=== PATIENT | male | born 1990 | race Hispanic/Latino ===

== ENCOUNTER 2016-08-08 09:10 | Inpatient (IN) | payer MEDICARE, MEDICAID ==
[2016-08-08 09:13] VITALS: O2SAT 97
[2016-08-08 09:15] VITALS: BMI 25.7
--- NOTE | 2016-08-08 09:16 | ED PDOC ---
Psych Transfer Clearance - Clearance Statement Clearance Statement: Reviewed vital signs, lab results and transfer papers. Patient clinically stable for psychiatric admission.
[2016-08-08] MEDS ORDERED: Magnesium Hydroxide Susp 30 ml UD PO PRN (11:00)
[2016-08-08] MEDS ORDERED: DiphenhydrAMINE 50 mg/ml Inj IM PRN (11:00)
[2016-08-08] MEDS ORDERED: Alum-Mag Hydrox-Simethicone Susp (30 mL) PO PRN (11:00)
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
[2016-08-08 22:35] VITALS: RESP 18
[2016-08-09 08:14] LABS: CHOLESTEROL 172 mg/dL (0-199)
[2016-08-09 09:25] VITALS: BP 125/74; PULSE 87; TEMP 97.7
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
== END 2016-08-09 13:08 | disposition home or self-care (01) | DRG 885 ==
LOC: H.ER 09:10 → H.PSYCH 09:15
PROVIDERS: ADMIT Psychiatry & Neurology Psychiatry; ATTEND Psychiatry & Neurology Psychiatry
PROC: GZ51ZZZ Individual Psychotherapy, Behavioral (ICD-10-PCS; principal; 2016-08-08)
DX: F31.9 Bipolar disorder, unspecified (principal); F25.9 Schizoaffective disorder, unspecified; R45.851 Suicidal ideations; F16.10 Hallucinogen abuse, uncomplicated; F60.2 Antisocial personality disorder; Z87.891 Personal history of nicotine dependence; Z59.0 Homelessness; J45.909 Unspecified asthma, uncomplicated

== ENCOUNTER 2016-08-14 22:28 | Inpatient (IN) | payer MEDICARE, MEDICAID ==
[2016-08-14 22:28] VITALS: BMI 25.7
[2016-08-15 02:29] LABS: HEMATOCRIT 40.8 % (35.0-51.0); MEAN CELL VOLUME 93.2 fl (80.0-94.0); MEAN CORPUSCULAR HEMOGLOBIN 31.1 pg (27.0-31.0); MEAN CORPUSCULAR HGB CONC 33.3 g/dL (33.0-37.0); RED CELL DISTRIBUTION WIDTH 13.5 % (11.5-14.5); WHITE BLOOD COUNT 13.7 K/uL (4.8-10.8)
[2016-08-15 02:33] LABS: RBC URINE 2 /hpf (0-3); URINE BILIRUBIN NEGATIVE (NEGATIVE); URINE BLOOD NEGATIVE (NEGATIVE); URINE COLOR BLUE (YELLOW); URINE GLUCOSE (UA) NEG (Normal); URINE KETONE NEGATIVE (NEGATIVE); URINE LEUKOCYTE ESTERASE NEG Leu/uL (Negative); URINE PROTEIN NEGATIVE (NEGATIVE); URINE UROBILINOGEN 0.2-1.0 mg/dL (0.2-1.0); WBC URINE 1 /hpf (0-5)
[2016-08-15 02:40] LABS: ALB/GLOB RATIO 1.4 (1.0-2.1); ALCOHOL SERUM < 10 mg/dl (0-10); ALKALINE PHOSPHATASE 56 U/L (38-126); ALT/SGPT 34 U/L (21-72); AST/SGOT 33 U/L (17-59); BILIRUBIN,TOTAL 0.3 mg/dl (0.2-1.3); BLOOD UREA NITROGEN 17 mg/dl (9-20); CALCIUM 8.9 mg/dL (8.4-10.2); CARBON DIOXIDE 26 mmol/L (22-30); CHLORIDE 103 mmol/L (98-107); GFR AFRICAN-AMERICAN > 60; GLUCOSE,RANDOM 85 mg/dL (75-110); POTASSIUM 3.5 MMOL/L (3.6-5.0); SODIUM 137 mmol/l (132-148); TOTAL PROTEIN 6.7 G/DL (6.3-8.2)
--- NOTE | 2016-08-15 03:11 | ED PDOC ---
HPI: Psych/Substance Abuse Time Seen by Provider: 08/14/16 22:58 Chief Complaint (Nursing): Psychiatric Evaluation Chief Complaint (Provider): SI - Wants to jump in front of a pain History Per: Patient History/Exam Limitations: no limitations Onset/Duration Of Symptoms: Days (2-3) Current Symptoms Are (Timing): Still Present Suicide/Self Injury Attempted (Context): None Modifying Factor(s): None Associated Symptoms: Suicidal Thoughts Additional Complaint(s): [place] and came to the ER because he was about to jump in front of a train. Pt states he signed out too early off of the unit. Past Medical History Reviewed: Historical Data, Nursing Documentation, Vital Signs Vital Signs: Last Vital Signs Temp 98.3 F 08/14/16 22:44 Pulse 109 H 08/14/16 22:44 Resp 18 08/14/16 22:44 BP 136/82 08/14/16 22:44 Pulse Ox 91 L 08/14/16 22:44 - Medical History PMH: Anxiety, Asthma (since childhood), Bipolar Disorder, Depression, Post Traumatic Stress Disorder, Schizophrenia Denies: Diabetes, Hepatitis, HIV, HTN, Chronic Kidney Disease, Seizures, Sexually Transmitted Disease - Surgical History Surgical History: No Surg Hx - Family History Family History: States: Unknown Family Hx - Immunization History Hx Tetanus Toxoid Vaccination: Yes Hx Influenza Vaccination: Yes Hx Pneumococcal Vaccination: No - Home Medications Home Medications: Ambulatory Orders Medication Instructions Recorded OXcarbazepine [Trileptal] 150 mg PO BID #30 tab 08/09/16 chlorproMAZINE [Thorazine] 100 mg PO HS #15 tab 08/09/16 - Allergies Allergies/Adverse Reactions: Allergies Allergy/AdvReac Type Severity Reaction Status Date / Time bee pollen Allergy RASH Verified 08/14/16 22:50 haloperidol [From Haldol] Allergy RASH Verified 08/14/16 22:50 haloperidol lactate Allergy RASH Verified 08/14/16 22:50 [From Haldol] Penicillins Allergy RASH Verified 08/14/16 22:50 Review of Systems ROS Statement: Except As Marked, All Systems Reviewed And Found Negative Psych: Positive for: Suicidal ideation Physical Exam - Reviewed Nursing Documentation Reviewed: Yes Vital Signs Reviewed: Yes - Physical Exam Appears: Positive for: Well, Non-toxic, No Acute Distress Head Exam: Positive for: ATRAUMATIC, NORMAL INSPECTION, NORMOCEPHALIC Skin: Positive for: Normal Color, Warm, DRY Eye Exam: Positive for: Normal appearance ENT: Positive for: Normal ENT Inspection Neck: Positive for: Normal, Painless ROM Cardiovascular/Chest: Positive for: Regular Rate, Rhythm Respiratory: Positive for: CNT, Normal Breath Sounds Gastrointestinal/Abdominal: Positive for: Normal Exam, Bowel Sounds, Soft Back: Positive for: Normal Inspection Extremity: Positive for: Normal ROM Neurologic/Psych: Positive for: Alert, Oriented - Laboratory Results Result Diagrams: 08/15/16 02:25 08/15/16 02:25 - ECG O2 Sat by Pulse Oximetry: 91 Medical Decision Making Medical Decision Making: Elevated WBC without fever. Normal CXR Normal urine. Disposition - Clinical Impression Clinical Impression: Depression - Patient ED Disposition Is Patient to be Admitted: Yes - Disposition Disposition Time: 03:16 Condition: STABLE - Pt Status Changed To: Hospital Disposition Of: Inpatient - Admit Certification Admit to Inpatient:: After my assessment, the patient will require hospitalization for at least two midnights. This is because of the severity of symptoms shown, intensity of services needed, and/or the medical risk in this patient being treated as an outpatient. - POA Present On Arrival: None
[2016-08-15 04:17] VITALS: O2SAT 91
[2016-08-15] MEDS ORDERED: Magnesium Hydroxide Susp 30 ml UD PO PRN (04:36)
[2016-08-15] MEDS ORDERED: DiphenhydrAMINE 50 mg/ml Inj IM PRN (04:36)
[2016-08-15] MEDS ORDERED: Alum-Mag Hydrox-Simethicone Susp (30 mL) PO PRN (04:36)
[2016-08-15] MEDS ORDERED: Pneumococcal 23-Valent Vaccine IM ONE (06:00)
--- NOTE | 2016-08-15 07:32 | RAD ---
HISTORY: admission COMPARISON: No prior. TECHNIQUE: Chest PA and lateral FINDINGS: LUNGS: No active pulmonary disease. PLEURA: No significant pleural effusion identified. No pneumothorax apparent. CARDIOVASCULAR: Normal. OSSEOUS STRUCTURES: No significant abnormalities. VISUALIZED UPPER ABDOMEN: Normal. OTHER FINDINGS: None. IMPRESSION: No active disease.
--- NOTE | 2016-08-15 14:04 | CP.PCM.CON ---
History of Present Illness - History of Present Illness History of Present Illness: Reason for consult per protocol HPI: 26 year old male PMH PCP abuse and depression, just signed out 6 days ago from psych unit for suicidal ideations. Patient attempted to jump in front of a train? Feels he signed out too early. Pt also states he dislocated his shoulder , and feels he reaggravated it somehow, requesting motrin. Otherwise no complaints, vitals stable, no acute distress. ROS: per HPI all other systems reviewed and negative PMH: PCP abuse and depression PSH: denies FH: denies SH: 6 cigarettes a day 10 years. denies ETOH, IVDU Meds: as below Allergies: PCN, HALDOL Vitals: Temp Pulse Resp BP Pulse Ox 98.7 F 100 H 15 135/85 91 L 08/15/16 04:46 08/15/16 04:46 08/15/16 04:46 08/15/16 04:46 08/15/16 04:17 Constitutional- cooperative, awake, alert. Head- NCAT, PERRL Eye- PERRL, normal accommodation ENT- normal exam, MMM. Neck- normal inspection, supple, no JVD Respiratory- decreased BS, no wheezes rales rhonchi Cardiovascular- RRR, +S1, +S2 no MRG GI/Abdominal- normal bowel sounds, soft Extremities Exam- normal capillary refill, normal inspection Neurological Exam- alert, oriented Skin- warm and dry Psych - normal mood, affect appropriate Labs: 08/15/16 02:25 08/15/16 02:25 Assessment and Plan: 26 year old male PMH PCP abuse and depression, just signed out 6 days ago from psych unit for suicidal ideations. Patient attempted to jump in front of a train ? Feels he signed out too early. Pt also states he dislocated his shoulder, and feels he reaggravated it somehow, requesting motrin. Otherwise no complaints, vitals stable, no acute distress. Substance Abuse Depression Management per psych Past Patient History - Infectious Disease Hx of Infectious Diseases: None - Tetanus Immunizations Tetanus Immunization: Unknown - Past Social History Smoking Status: Heavy Smoker > 10 Cigarettes Daily - CARDIAC Hx Cardiac Disorders: No Hx Hypertension: No - PULMONARY Hx Respiratory Disorders: Yes - NEUROLOGICAL Hx Neurological Disorder: No Hx Seizures: No - HEENT Hx HEENT Problems: No (wears glasses) - RENAL Hx Chronic Kidney Disease: No - ENDOCRINE/METABOLIC Hx Endocrine Disorders: No - HEMATOLOGICAL/ONCOLOGICAL Hx Blood Disorders: No Hx Human Immunodeficiency Virus (HIV): No - INTEGUMENTARY Hx Dermatological Problems: No - MUSCULOSKELETAL/RHEUMATOLOGICAL Hx Musculoskeletal Disorders: Yes (reported pain on the R shoulder) Hx Arthritis: Yes - GASTROINTESTINAL Hx Gastrointestinal Disorders: No - GENITOURINARY/GYNECOLOGICAL Hx Genitourinary Disorders: No Hx Sexually Transmitted Disorders: No - PSYCHIATRIC Hx Psychophysiologic Disorder: Yes - SURGICAL HISTORY Hx Surgeries: No - ANESTHESIA Hx Anesthesia: No Hx Anesthesia Reactions: No Hx Malignant Hyperthermia: No Meds Allergies/Adverse Reactions: Allergies Allergy/AdvReac Type Severity Reaction Status Date / Time bee pollen Allergy RASH Verified 08/14/16 22:50 haloperidol [From Haldol] Allergy RASH Verified 08/14/16 22:50 haloperidol lactate Allergy RASH Verified 08/14/16 22:50 [From Haldol] Penicillins Allergy RASH Verified 08/14/16 22:50 - Medications Medications: Current Medications Acetaminophen (Tylenol 325mg Tab) 650 mg PO Q4 PRN PRN Reason: Pain, moderate (4-7) Al Hydrox/Mg Hydrox/Simethicone (Maalox Plus 30 Ml) 30 ml PO Q4 PRN PRN Reason: Dyspepsia Chlorpromazine (Thorazine) 25 mg IM Q6 PRN PRN Reason: Agitation Chlorpromazine (Thorazine) 50 mg PO Q6 PRN PRN Reason: Agitation Chlorpromazine (Thorazine) 100 mg PO HS [facility] Diphenhydramine HCl (Benadryl) 50 mg PO Q6 PRN PRN Reason: Extrapyramidal Symptoms Diphenhydramine HCl (Benadryl) 50 mg IM Q6 PRN PRN Reason: Extrapyramidal S/S Unable PO Lorazepam (Ativan) 1 mg PO Q4 PRN PRN Reason: Anxiety/Agitation Lorazepam (Ativan) 2 mg IM Q4 PRN PRN Reason: Anxiety/Agitation,Unable PO Magnesium Hydroxide (Milk Of Magnesia) 30 ml PO HS PRN PRN Reason: Constipation Nicotine (Nicoderm Cq) 1 patch TD DAILY CARL Results - Vital Signs Recent Vital Signs: Last Vital Signs Temp 98.7 F 08/15/16 04:46 Pulse 100 H 08/15/16 04:46 Resp 15 08/15/16 04:46 BP 135/85 08/15/16 04:46 Pulse Ox 91 L 08/15/16 04:17 - Labs Result Diagrams: 08/15/16 02:25 08/15/16 02:25 Labs: Laboratory Results - last 24 hr 08/15/16 02:25 WBC 13.7 H RBC 4.37 L Hgb 13.6 Hct 40.8 MCV 93.2 D MCH 31.1 H MCHC 33.3 RDW 13.5 Plt Count 223 Sodium 137 Potassium 3.5 L Chloride 103 Carbon Dioxide 26 Anion Gap 12 BUN 17 Creatinine 0.8 Est GFR ( Amer) > 60 Est GFR (Non-Af Amer) > 60 Random Glucose 85 Calcium 8.9 Total Bilirubin 0.3 AST 33 ALT 34 Alkaline Phosphatase 56 Total Protein 6.7 Albumin 3.9 Globulin 2.8 Albumin/Globulin Ratio 1.4 Urine Color Blue Urine Clarity Slighty-cloudy Urine pH 5.0 Ur Specific [place] 1.026 Urine Protein Negative Urine Glucose (UA) Neg Urine Ketones Negative Urine Blood Negative Urine Nitrate Negative Urine Bilirubin Negative Urine Urobilinogen 0.2-1.0 Ur Leukocyte Esterase Neg Urine RBC (Auto) 2 Urine Microscopic WBC 1 Urine Opiates Screen Negative Urine Methadone Screen Negative Ur Barbiturates Screen Negative Ur Phencyclidine Scrn Positive H Ur Amphetamines Screen Negative U Benzodiazepines Scrn Negative U Oth Cocaine Metabols Negative U Cannabinoids Screen Positive H Alcohol, Quantitative < 10
--- NOTE | 2016-08-15 21:45 | PCM.PSYCH ---
Initial Psychiatric Evaluation - Initial Psychiatric Evaluation Chief Complaint (in patient's own words): was feeling suicidal ideation was reports recently discharged from [facility], [place] recently for same Patient's Reaction to Hospitalization: verbally agreeable History of Present Illness and Precipitating Events: reported increasing depression, decreased supports Current Medications: Active Medications Generic Name Dose Route Start Last Admin Trade Name Freq PRN Reason Stop Dose Admin Acetaminophen 650 mg 08/15/16 04:36 Tylenol 325mg Tab PO Q4 PRN Pain, moderate (4-7) Al Hydrox/Mg Hydrox/Simethicone 30 ml 08/15/16 04:36 Maalox Plus 30 Ml PO Q4 PRN Dyspepsia Chlorpromazine 25 mg 08/15/16 05:18 Thorazine IM Q6 PRN Agitation Chlorpromazine 50 mg 08/15/16 05:17 Thorazine PO Q6 PRN Agitation Diphenhydramine HCl 50 mg 08/15/16 04:36 Benadryl PO Q6 PRN Extrapyramidal Symptoms Diphenhydramine HCl 50 mg 08/15/16 04:36 Benadryl IM Q6 PRN Extrapyramidal S/S Unable PO Ibuprofen 600 mg 08/15/16 18:03 08/15/16 18:27 Motrin Tab PO 600 mg Q6 PRN Administration pain 4-10 Lorazepam 1 mg 08/15/16 04:36 Ativan PO Q4 PRN Anxiety/Agitation Lorazepam 2 mg 08/15/16 04:36 Ativan IM Q4 PRN Anxiety/Agitation,Unable PO Lorazepam 0.5 mg 08/15/16 17:00 08/15/16 17:04 Ativan PO 0.5 mg BID CARL Administration Magnesium Hydroxide 30 ml 08/15/16 04:36 Milk Of Magnesia PO HS PRN Constipation Nicotine 1 patch 08/15/16 11:15 08/15/16 09:00 Nicoderm Cq TD 1 patch DAILY CARL Administration Sertraline HCl 50 mg 08/16/16 09:00 Zoloft PO DAILY CARL Trazodone HCl 150 mg 08/15/16 22:00 08/15/16 21:34 Desyrel PO 150 mg HS CARL Administration Past Psychiatric History - Past Psychiatric History Prior Professional Help: multiple inpt partial hospital opd History of ETOH/Drug Use: defers History of Family Illness: defers Pertinent Medical Hx (Current Medical&Sleep Prob, Allergies): Allergies Allergy/AdvReac Type Severity Reaction Status Date / Time bee pollen Allergy RASH Verified 08/14/16 22:50 haloperidol [From Haldol] Allergy RASH Verified 08/14/16 22:50 haloperidol lactate Allergy RASH Verified 08/14/16 22:50 [From Haldol] Penicillins Allergy RASH Verified 08/14/16 22:50 OXcarbazepine [Trileptal] 150 mg PO BID #30 tab 08/09/16 chlorproMAZINE [Thorazine] 100 mg PO HS #15 tab 08/09/16 Review of Systems - Psychiatric Psychiatric: Abnormal Sleep Pattern, Anhedonia, Paranoia Mental Status Examination - Personal Presentation Personal Presentation: Looks older than stated age - Affect Affect: Constricted - Motor Activity Motor Activity: Psychomotor Retardation - Reliability in Providing Information Reliability in Providing Information: Fair - Mood Mood: Depressed, Anxious - Formal Thought Process Formal Thought Process: Paranoia - Obsessions/Compulsions Obsessions: No Compulsions: No - Cognitive Functions Orientation: Person, Place, Situation, Time Sensorium: Alert Judgement: Imparied, as evidence by: Other - Strength & Assets Inventory Additional comments: voluntary admission DSM 5 DX - DSM 5 DSM 5 Diagnosis: Sschizoaffective disorder 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
[2016-08-16 09:15] VITALS: RESP 18
--- NOTE | 2016-08-16 15:33 | RAD ---
HISTORY: dislocation? COMPARISON: No prior FINDINGS: BONES: Normal. No fracture. JOINTS: Normal. No osteoarthritis. SOFT TISSUE: Normal. OTHER FINDINGS: None . IMPRESSION: Normal Bone Xray.
--- NOTE | 2016-08-17 01:56 | PCM.PYCHPN ---
Psychiatric Progress Note - Psychiatric Progress Note Patient seen today, length of contact: NOTE FOR [id number] Chart reviewed case discussed with team Patient Chief Complaint: reports feeling better, slept with medications,no side effects am, reports feeling more at ease , expresses desire to relocate to [facility], reportedly has arrangements to have a place to stay, may need help obtaining room for one week, Problems Identified/Issues Discussed: alteration in mood improving, insomnia resolving Medical Problems: per chart Diagnostic Results: per psychiatry per medicine per nursing per social sciences research scientist per recreational therapy Medication Change: No Mental Status Examination - Cognitive Function Orientation: Person, Place, Situation, Time Attention: WNL Concentration: WNL Association: WNL Fund of Knowledge: [facility] Decription of patient's judgement and insights: improving - Mood Mood: Depressed, Anxious - Affect Affect: Constricted - Formal Thought Process Formal Thought Process: Paranoia - Homicidal Ideation Homicidal Ideation: No Goal/Treatment Plan - Goal/Treatment Plan Progress Toward Problem(s) and Goals/Treatment Plan: i milieu therapy vital signs and clinical observations per protocol and per clinical status discharge planning in progress Estimated Date of D/C: 07/28/16 - Smoking Cessation Smoking Cessation Initiated: Yes
[2016-08-17 07:21] LABS: BASO % 0.5 % (0.0-2.0); EOS # 0.2 K/uL (0.0-0.7); EOS % 1.8 % (0.0-4.0); HEMATOCRIT 43.8 % (35.0-51.0); LYMPH # 2.9 K/uL (1.0-4.3); LYMPH % 27.9 % (20.0-40.0); MEAN CORPUSCULAR HEMOGLOBIN 31.5 pg (27.0-31.0); MEAN CORPUSCULAR HGB CONC 33.5 g/dL (33.0-37.0); MONO % 9.3 % (0.0-10.0); NEUT # 6.3 K/uL (1.8-7.0); NEUT % 60.5 % (50.0-75.0); NRBC % 0.1 % (0.0-0.0); RED CELL DISTRIBUTION WIDTH 13.5 % (11.5-14.5); WHITE BLOOD COUNT 10.4 K/uL (4.8-10.8)
[2016-08-17 09:24] VITALS: BP 121/71; PULSE 76; TEMP 97.3
--- NOTE | 2016-08-17 09:36 | PCM.PYCHDC ---
Mental Status Examination - Mental Status Examination Orientation: Person, Place, Situation, Time Memory: Intact Mood: Neutral Affect: Broad Speech: Appropriate Attention: WNL Concentration: WNL Association: WNL Fund of Knowledge: WNL Formal Thought Process: No Impairment Description of patient's judgement and insight: fair Suicidal Ideation: No Current Homicidal Ideation?: No Plan: pt denies any suicidal or homicidal thoughts Discharge Summary - Discharge Note Reason for Hospitalization: pt expressed thoughts of self harm Psychiatric History (includes Medical, Family, Personal Hx): history of previous hospitalizations Laboratory Data: Abnormal Lab Results 08/17/16 06:59 WBC 10.4 RBC 4.66 Hgb 14.7 Hct 43.8 MCV 94.0 MCH 31.5 H MCHC 33.5 RDW 13.5 Plt Count 221 MPV 8.0 Neut % (Auto) 60.5 Lymph % (Auto) 27.9 Mccracken % (Auto) 9.3 Eos % (Auto) 1.8 Baso % (Auto) 0.5 Neut # 6.3 Lymph # 2.9 Mccracken # 1.0 H Eos # 0.2 Baso # 0.0 Consultations:: List each consultation separately and include: 1. Reason for request. 2. Findings. 3. Follow-up Consultations: seen by hospitalist Summary of Hospital Course include:: 1. Description of specific treatment plan utilized for patients during their course of treatmen. 2. Summarize the time- course for resolution of acute symptoms and/or regressed behaviors. 3. Describe issues identified and worked on during hospitalization. 4. Describe medication utilized. 5. Describe medical problems identified and treated. 6. Reassessment of suicide risk Summary of Hospital Course: pt admitted to [facility] and oriented to the unit. he was placed on routine safety protocols. he was adherent with treatment. pt denied medication side effects. pt was asking to leave the hospital, was goal directed and future oriented. he was denying suicidal or homicidal thoughts at time of discharge. - Final Diagnosis (DSM 5) Condition upon Discharge: STABLE DSM 5: schizoaffective disorder antisocial personality disorder Disposition: HOME/ ROUTINE Follow-up Treatment Plan: take medications as prescribed do not use alcohol, tobacco or other illicit substances call 911 if any suicidal or homicidal thoughts follow up with aftercare as directed. - Smoking Cessation Smoking Cessation Medication prescribed: No Reason for not providing: declined - Antipsychotic Medications Pt discharged on 2 or more routine antipsychotic medications: No
== END 2016-08-17 11:40 | disposition home or self-care (01) | DRG 885 ==
LOC: H.ER 22:28 → H.ERHOLD 08-15 02:02 → H.PSYCH 08-15 04:55
PROVIDERS: ADMIT Psychiatry & Neurology Psychiatry; ATTEND Psychiatry & Neurology Psychiatry
PROC: GZHZZZZ Group Psychotherapy (ICD-10-PCS; principal; 2016-08-15)
PROC: GZ58ZZZ Individual Psychotherapy, Cognitive-Behavioral (ICD-10-PCS; 2016-08-15)
PROC: 3E0234Z Introduction of Serum, Toxoid and Vaccine into Muscle, Percutaneous Approach (ICD-10-PCS; 2016-08-15)
DX: F32.3 Major depressive disorder, single episode, severe with psychotic features (principal); F16.10 Hallucinogen abuse, uncomplicated; F60.2 Antisocial personality disorder; F43.10 Post-traumatic stress disorder, unspecified; G47.00 Insomnia, unspecified; J45.909 Unspecified asthma, uncomplicated; F17.210 Nicotine dependence, cigarettes, uncomplicated; Z23 Encounter for immunization; Z88.0 Allergy status to penicillin

== ENCOUNTER 2016-08-18 02:41 | Emergency (ER) | payer MEDICARE, MEDICAID ==
[2016-08-18 02:41] VITALS: BMI 25.7
[2016-08-18] MEDS ORDERED: Albuterol-Ipratrop 3 mg / 0.5 (3 ml) UD IH STA ×2 (03:14→03:55)
[2016-08-18] MEDS ORDERED: Albuterol-Ipratrop 3 mg / 0.5 (3 ml) UD ONE ×2 (03:17→03:59)
--- NOTE | 2016-08-18 03:19 | ED PDOC ---
HPI: SOB/CHF/COPD Time Seen by Provider: 08/18/16 02:53 Chief Complaint (Nursing): Chest Pain Chief Complaint (Provider): sob History Per: Patient History/Exam Limitations: no limitations Onset/Duration Of Symptoms: Hrs (7) Current Symptoms Are (Timing): Still Present Initiating Event: Out Of Medications Current Respiratory Medications: Albuterol Additional History Per: Patient Additional Complaint(s): 26 y/o male history of asthma presents to ED with chest pain, shortness of breath x 7 hours. Patient states he ran out of his inhaler; requesting nebulizer treatment and refill. States symptoms similar to previous asthma exacerbations. Denies fever, cough, congestion, shortness of breath, palpitations, abdominal pain, leg pain/swelling. Past Medical History Reviewed: Historical Data, Nursing Documentation, Vital Signs - Medical History PMH: Anxiety, Arthritis, Asthma, Bipolar Disorder, Depression, Post Traumatic Stress Disorder, Schizophrenia Denies: Diabetes, Hepatitis, HIV, HTN, Chronic Kidney Disease, Seizures, Sexually Transmitted Disease - Family History Family History: States: Unknown Family Hx - Immunization History Hx Tetanus Toxoid Vaccination: Yes Hx Influenza Vaccination: Yes Hx Pneumococcal Vaccination: No - Home Medications Home Medications: Ambulatory Orders Medication Instructions Recorded OXcarbazepine [Trileptal] 150 mg PO BID #30 tab 08/09/16 chlorproMAZINE [Thorazine] 100 mg PO HS #15 tab 08/09/16 Albuterol HFA [Ventolin HFA 90 1 - 2 puff IH Q4 PRN #1 inh 08/18/16 mcg/actuation (8 g)] - Allergies Allergies/Adverse Reactions: Allergies Allergy/AdvReac Type Severity Reaction Status Date / Time bee pollen Allergy RASH Verified 08/18/16 02:56 haloperidol [From Haldol] Allergy RASH Verified 08/14/16 22:50 haloperidol lactate Allergy RASH Verified 08/14/16 22:50 [From Haldol] Penicillins Allergy RASH Verified 08/18/16 02:56 Review of Systems ROS Statement: Except As Marked, All Systems Reviewed And Found Negative Cardiovascular: Positive for: Chest Pain Respiratory: Positive for: Shortness of Breath Physical Exam - Reviewed Nursing Documentation Reviewed: Yes Vital Signs Reviewed: Yes - Physical Exam Appears: Positive for: Well, Non-toxic, No Acute Distress Head Exam: Positive for: ATRAUMATIC, NORMAL INSPECTION, NORMOCEPHALIC Skin: Positive for: Normal Color Eye Exam: Positive for: Normal appearance ENT: Positive for: Normal ENT Inspection Cardiovascular/Chest: Positive for: Regular Rate, Rhythm Respiratory: Positive for: Normal Breath Sounds Gastrointestinal/Abdominal: Positive for: Normal Exam Extremity: Positive for: Normal ROM Neurologic/Psych: Positive for: Alert, Oriented - ECG ECG: Positive for: Viewed By Me (reviewed by ED attending) ECG Rhythm: Positive for: Sinus Rhythm, Premature Ventricular Contraction - Progress ED Course And Treament: ekg, duoneb x 2. chest xray from 08/15/16 WNL On re-eval, patient states he is feeling better. Rx Albuterol provided. Follow up PMD 2-3 days. Return to ED for worsening/concerning symptoms. Disposition - Clinical Impression Clinical Impression: Asthma, Medication refill - Patient ED Disposition Is Patient to be Admitted: No Counseled Patient/Family Regarding: Studies Performed, Diagnosis, Need For Followup, Rx Given - Disposition Disposition: Routine/Home Disposition Time: 04:18 Condition: IMPROVED Prescriptions: Albuterol HFA [Ventolin HFA 90 mcg/actuation (8 g)] 1 - 2 puff IH Q4 PRN #1 inh PRN Reason: Wheezing Instructions: Asthma (ED)
--- NOTE | 2016-08-18 14:00 | CARD ---
APPROVED REPORT EKG Measurement Heart [id number] <Conclusion> Sinus rhythm with premature supraventricular complexes Otherwise normal ECG
== END 2016-08-18 04:15 | disposition home or self-care (01) ==
LOC: H.ER 02:41
DX: J45.909 Unspecified asthma, uncomplicated (principal); Z76.0 Encounter for issue of repeat prescription; Z86.59 Personal history of other mental and behavioral disorders

== ENCOUNTER 2016-09-30 22:06 | Emergency (ER) | payer MEDICARE, MEDICAID ==
[2016-09-30 22:06] VITALS: BMI 27.5
[2016-09-30 22:15] VITALS: BP 127/77; PULSE 96; RESP 18; TEMP 98.5; O2SAT 97
[2016-09-30] MEDS ORDERED: Bacitracin OINT 15GM TOP STA (22:27)
--- NOTE | 2016-09-30 22:29 | ED PDOC ---
Lower Extremity Pain/Injury Time Seen by Provider: 09/30/16 22:22 Chief Complaint (Nursing): Lower Extremity Problem/Injury History Per: Patient Additional Complaint(s): Pt. states for the past several days he's had b/l foot blisters. Pt. states blisters are painful. Pt. states he does do a lot of walking. Denies trauma, hx of DM. Past Medical History Reviewed: Historical Data, Nursing Documentation, Vital Signs Vital Signs: Last Vital Signs Temp 98.5 F 09/30/16 22:10 Pulse 96 H 09/30/16 22:10 Resp 18 09/30/16 22:10 BP 127/77 09/30/16 22:10 Pulse Ox 97 09/30/16 22:10 - Medical History PMH: Anxiety, Arthritis, Asthma, Bipolar Disorder, Depression, Post Traumatic Stress Disorder, Schizophrenia Denies: Diabetes, Hepatitis, HIV, HTN, Chronic Kidney Disease, Seizures, Sexually Transmitted Disease - Family History Family History: States: No Known Family Hx - Immunization History Hx Tetanus Toxoid Vaccination: Yes Hx Influenza Vaccination: Yes Hx Pneumococcal Vaccination: No - Home Medications Home Medications: Ambulatory Orders Medication Instructions Recorded DiphenhydrAMINE [Benadryl] 25 mg PO DAILY #14 cap 09/18/16 LORazepam [Ativan] 0.5 mg PO Q12H #30 tab 09/18/16 Mirtazapine [Remeron] 30 mg PO HS #14 tab 09/18/16 Nicotine 21 mg/24 hr [Nicoderm Cq] 1 patch TD DAILY #14 patch 09/18/16 Sertraline [Zoloft] 50 mg PO DAILY #14 tab 09/18/16 Sertraline [Zoloft] 100 mg PO DAILY #14 tab 09/18/16 - Allergies Allergies/Adverse Reactions: Allergies Allergy/AdvReac Type Severity Reaction Status Date / Time bee pollen Allergy RASH Verified 09/20/16 03:01 haloperidol [From Haldol] Allergy RASH Verified 09/20/16 03:01 haloperidol lactate Allergy RASH Verified 09/20/16 03:01 [From Haldol] Penicillins Allergy RASH Verified 09/20/16 03:01 Review of Systems ROS Statement: Except As Marked, All Systems Reviewed And Found Negative Musculoskeletal: Positive for: Foot Pain Physical Exam - Physical Exam Appears: Positive for: Well, Non-toxic, No Acute Distress Skin: Positive for: Normal Color, Warm. Negative for: Rash Extremity: Positive for: Normal ROM, Other (scattered intact blisters on plantar surface of both feet) - ECG O2 Sat by Pulse Oximetry: 97 - Progress ED Course And Treament: Pt. eloped from ED prior to having bacitracin ointment applied and prior to getting FS done. Disposition - Clinical Impression Clinical Impression: Friction blister - Disposition Disposition: Eloped Disposition Time: 00:12 Condition: STABLE Instructions: Blister (ED) Print Language: ECUADOREAN
== END 2016-10-01 00:24 | disposition left against medical advice (07) ==
LOC: H.ER 22:06
DX: M79.672 Pain in left foot (principal); F20.9 Schizophrenia, unspecified; F31.9 Bipolar disorder, unspecified; F41.9 Anxiety disorder, unspecified; F43.10 Post-traumatic stress disorder, unspecified; J45.909 Unspecified asthma, uncomplicated; Z88.0 Allergy status to penicillin

== ENCOUNTER 2016-10-03 18:51 | Inpatient (IN) | payer MEDICARE, MEDICAID ==
[2016-10-03 18:51] VITALS: BMI 27.5
--- NOTE | 2016-10-03 19:33 | ED PDOC ---
HPI: Psych/Substance Abuse Time Seen by Provider: 10/03/16 19:17 Chief Complaint (Nursing): Psychiatric Evaluation Chief Complaint (Provider): crisis eval History Per: Patient Additional Complaint(s): Patient presents to emergency department for crisis evaluation. He states that he has been having thoughts of wanting to harm himself. Patient has self inflicted cutting jose and burn jose on his left wrist. He states he has been non-compliant with his psych meds since the end of July. Patient fears that if he goes home tonight he will further harm himself. He offers no acute medical complaints. Patient states he has been self medicating with marijuana and PCP. Past Medical History Reviewed: Historical Data, Nursing Documentation, Vital Signs Vital Signs: Last Vital Signs Temp 97.9 F 10/03/16 18:55 Pulse 96 H 10/03/16 18:55 Resp 18 10/03/16 18:55 BP 133/72 10/03/16 18:55 Pulse Ox 98 10/03/16 18:55 - Medical History PMH: Anxiety, Arthritis, Asthma, Bipolar Disorder, Depression, Post Traumatic Stress Disorder, Chronic Kidney Disease, Schizophrenia, Seizures - Family History Family History: States: No Known Family Hx - Living Arrangements Living Arrangements: Alone - Social History Current smoker - smoking cessation education provided: Yes Alcohol: None Drugs: Cannabis, Other (PCP) - Immunization History Hx Tetanus Toxoid Vaccination: Yes Hx Influenza Vaccination: Yes Hx Pneumococcal Vaccination: No - Home Medications Home Medications: Ambulatory Orders Medication Instructions Recorded DiphenhydrAMINE [Benadryl] 25 mg PO DAILY #14 cap 09/18/16 LORazepam [Ativan] 0.5 mg PO Q12H #30 tab 09/18/16 Mirtazapine [Remeron] 30 mg PO HS #14 tab 09/18/16 Nicotine 21 mg/24 hr [Nicoderm Cq] 1 patch TD DAILY #14 patch 09/18/16 Sertraline [Zoloft] 50 mg PO DAILY #14 tab 09/18/16 Sertraline [Zoloft] 100 mg PO DAILY #14 tab 09/18/16 - Allergies Allergies/Adverse Reactions: Allergies Allergy/AdvReac Type Severity Reaction Status Date / Time bee pollen Allergy RASH Verified 09/20/16 03:01 haloperidol [From Haldol] Allergy RASH Verified 09/20/16 03:01 haloperidol lactate Allergy RASH Verified 09/20/16 03:01 [From Haldol] Penicillins Allergy RASH Verified 09/20/16 03:01 Review of Systems ROS Statement: Except As Marked, All Systems Reviewed And Found Negative Constitutional: Negative for: Fever Skin: Positive for: Other (self inflicted wounds to left arm) Psych: Positive for: Suicidal ideation Physical Exam - Reviewed Nursing Documentation Reviewed: Yes Vital Signs Reviewed: Yes - Physical Exam Appears: Positive for: Well Skin: Negative for: Rash Eye Exam: Positive for: Normal appearance, EOMI, PERRL Cardiovascular/Chest: Positive for: Regular Rate, Rhythm Respiratory: Positive for: Normal Breath Sounds Extremity: Positive for: Other (Superficial parsons and lacerations noted to medial left wrist, no infection noted, wounds are healing) Neurologic/Psych: Positive for: Alert, Oriented, Mood/Affect (flat) - ECG O2 Sat by Pulse Oximetry: 98 Pulse Ox Interpretation: Normal Medical Decision Making Medical Decision Makin26 year old male with suicidal ideation Plan: CBC CMP BAL UDS UA CXR EKG Crisis eval 1:1 observation Disposition - Clinical Impression Clinical Impression: Suicidal ideation - Patient ED Disposition Is Patient to be Admitted: Transfer of Care - Disposition Disposition: Transfer of Care Disposition Time: 20:00 Condition: STABLE Patient Signed Over To: Eran Tinoco Handoff Comments: Case was signed out to ISAAC Tinoco pending diagnostic testing results and final disposition
[2016-10-03 20:18] LABS: BASO % 0.4 % (0.0-2.0); EOS # 0.3 K/uL (0.0-0.7); EOS % 2.9 % (0.0-4.0); HEMATOCRIT 41.4 % (35.0-51.0); LYMPH % 30.1 % (20.0-40.0); MEAN CELL VOLUME 93.3 fl (80.0-94.0); MEAN CORPUSCULAR HEMOGLOBIN 31.9 pg (27.0-31.0); MEAN CORPUSCULAR HGB CONC 34.2 g/dL (33.0-37.0); MEAN PLATELET VOLUME 7.8 fl (7.2-11.7); MONO # 0.8 K/uL (0.0-0.8); MONO % 7.8 % (0.0-10.0); NEUT # 5.9 K/uL (1.8-7.0); NEUT % 58.8 % (50.0-75.0); NRBC % 0.1 % (0.0-0.0); RED CELL DISTRIBUTION WIDTH 13.4 % (11.5-14.5)
[2016-10-03 20:27] LABS: ALB/GLOB RATIO 1.5 (1.0-2.1); ALCOHOL SERUM < 10 mg/dl (0-10); ALKALINE PHOSPHATASE 61 U/L (38-126); ALT/SGPT 45 U/L (21-72); AST/SGOT 44 U/L (17-59); BILIRUBIN,TOTAL 0.3 mg/dl (0.2-1.3); BLOOD UREA NITROGEN 15 mg/dl (9-20); CALCIUM 9.1 mg/dL (8.4-10.2); CARBON DIOXIDE 23 mmol/L (22-30); CHLORIDE 111 mmol/L (98-107); GFR AFRICAN-AMERICAN > 60; GLUCOSE,RANDOM 118 mg/dL (75-110); POTASSIUM 3.3 MMOL/L (3.6-5.0); SODIUM 143 mmol/l (132-148); TOTAL PROTEIN 6.9 G/DL (6.3-8.2)
[2016-10-03 20:47] LABS: RBC URINE 3 /hpf (0-3); URINE BILIRUBIN NEGATIVE (NEGATIVE); URINE BLOOD NEGATIVE (NEGATIVE); URINE COLOR YELLOW (YELLOW); URINE GLUCOSE (UA) NEG (Normal); URINE KETONE NEGATIVE (NEGATIVE); URINE LEUKOCYTE ESTERASE NEG Leu/uL (Negative); URINE PROTEIN NEGATIVE (NEGATIVE); URINE UROBILINOGEN 0.2-1.0 mg/dL (0.2-1.0); WBC URINE 1 /hpf (0-5)
--- NOTE | 2016-10-03 21:57 | ED PDOC ---
- Laboratory Results Result Diagrams: 10/03/16 20:11 10/03/16 20:11 - ECG O2 Sat by Pulse Oximetry: 98 - Progress ED Course And Treament: Signed out to me pending crisis disposition. Pt. evaluated by crisis and arrangements made for admission under Dr. Vuong. Disposition - Clinical Impression Clinical Impression: Suicidal ideation, Schizoaffective disorder, bipolar type - POA Present On Arrival: None - Disposition Disposition: Admitted as In-Patient Disposition Time: 21:57 Condition: STABLE
[2016-10-04 00:36] VITALS: O2SAT 96
[2016-10-04] MEDS ORDERED: Magnesium Hydroxide Susp 30 ml UD PO PRN (01:51)
[2016-10-04] MEDS ORDERED: DiphenhydrAMINE 50 mg/ml Inj IM PRN (01:51)
[2016-10-04] MEDS ORDERED: Alum-Mag Hydrox-Simethicone Susp (30 mL) PO PRN (01:51)
--- NOTE | 2016-10-04 08:18 | RAD ---
HISTORY: clearance COMPARISON: No prior. FINDINGS: LUNGS: No active pulmonary disease. PLEURA: No significant pleural effusion identified, no pneumothorax apparent. CARDIOVASCULAR: Normal. OSSEOUS STRUCTURES: No significant abnormalities. VISUALIZED UPPER ABDOMEN: Normal. OTHER FINDINGS: None. IMPRESSION: No active disease.
[2016-10-04 09:14] LABS: CHOLESTEROL 178 mg/dL (0-199)
[2016-10-04 09:29] LABS: T4 7.44 ug/dl (5.5-11.0)
[2016-10-04 09:43] LABS: THYROID STIMULATING HORMONE 0.72 mIU/ML (0.46-4.68)
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
[2016-10-04] MEDS ORDERED: Albuterol-Ipratrop 3 mg / 0.5 (3 ml) UD INH PRN (18:15)
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
--- NOTE | 2016-10-05 08:55 | CARD ---
APPROVED REPORT EKG Measurement Heart [id number] [place] [id number] <Conclusion> Normal sinus rhythm Normal ECG
--- NOTE | 2016-10-05 13:25 | PCM.PYCHPN ---
Psychiatric Progress Note - Psychiatric Progress Note Patient seen today, length of contact: in treatment team Patient Chief Complaint: i won't sign a 48 hour notice this time Problems Identified/Issues Discussed: pt is intrusive. states he has a dry mouth and is stuttering now with his new antipsychotic. he denies any psychosis currently/recently. he reports fair sleep. he is asking to discontinue trialafon. he has been participating in treatment. Medication Change: Yes Medical Record Reviewed: Yes Mental Status Examination - Cognitive Function Orientation: Person, Place, Situation, Time Memory: Intact Attention: WNL Concentration: WNL Association: [facility] Fund of Knowledge: [facility] Decription of patient's judgement and insights: fair - Mood Mood: Depressed, Anxious - Affect Affect: Broad - Speech Speech: Appropriate - Formal Thought Process Formal Thought Process: No Impairment Psychotic Thoughts and Behaviors: denies a/v hallucinations - Suicidal Ideation Suicidal Ideation: No - Homicidal Ideation Homicidal Ideation: No Goal/Treatment Plan - Goal/Treatment Plan Need for Continued Stay: Remain at risks for inpatient hospitalization, Severe functional impairment Progress Toward Problem(s) and Goals/Treatment Plan: bipolar disorder antisocial personality disorder will dc trilafon increase zoloft awaiting podiatry consult refer back to outpt providers Estimated Date of D/C: 10/08/16 - Smoking Cessation Smoking Cessation Initiated: Yes
[2016-10-05 16:10] LABS: BLOOD UREA NITROGEN 16 mg/dl (9-20); CALCIUM 9.2 mg/dL (8.4-10.2); CARBON DIOXIDE 22 mmol/L (22-30); CHLORIDE 112 mmol/L (98-107); GFR AFRICAN-AMERICAN > 60; GLUCOSE,RANDOM 114 mg/dL (75-110); MAGNESIUM 2.1 MG/DL (1.6-2.3); PHOSPHOROUS 3.4 mg/dl (2.5-4.5); POTASSIUM 3.6 MMOL/L (3.6-5.0); SODIUM 144 mmol/l (132-148)
--- NOTE | 2016-10-05 17:24 | CON ---
DATE: 10/05/2016 This is an initial podiatric consult note. SUBJECTIVE: The patient is a 26-year-old male with extensive past medical history, including substance abuse, depression, suicidal ideation, schizophrenic , associative disorder, antisocial personality, and asthma. Podiatry Service consulted in regards to bilateral foot pain and history of subungual bleeding. The patient has followed up with a quantitative analyst marketing in [place], [place] prior to a year ago, but after move primary residence, he has lost touch with quantitative analyst marketing and sees no foot and ankle specialist at this time. The patient also reports paresthesias in the form of burning and tingling to the bilateral feet, extending from digits up leg. The patient reports right plantar nerve injury, source unknown. Verifies that it is due to repeated trauma while walking. The patient has no other pedal complaints at this time. The patient denies recent fever, chills, nausea, vomiting, and chest pain. PHYSICAL EXAMINATION: GENERAL: The patient alert, awake, and oriented x 3. Normal mood and normal affect at present. HEENT: Head presentation is atraumatic, normocephalic. LOWER EXTREMITY FOCUS: VASCULAR: DP and PT pulses are fully palpable bilaterally, grade 3/4. No pedal edema noted at this time bilaterally. Negative calf tenderness. All 10 digits are well perfused. DERMATOLOGICAL: Right posterior heel shows resolved de-roofed bulla. Base fully re-epithelialized. Left foot distal hallux shows drained vesicle. No active drainage at this time. Absent acute signs of infection. Minor excoriations throughout dorsal foot bilaterally. No hyperpigmentations noted. No interdigital macerations noted. No calluses noted. NEUROLOGICAL: Protective sensation is grossly intact bilaterally. Negative Tinel sign along all pedal dermatomes at this time. MUSCULOSKELETAL: No tenderness upon palpation noted at this time. Pedal muscle strength is graded 5/5 in all 4 major pedal muscle groups. Laxity noted at mid tarsal joints. Hypermobility of bilateral first metatarsophalangeal joints. No equinus deformity noted at this time. BIOMECHANICAL: Bilateral cavus foot type noted. Left foot shows increased angle of gait at 22 degrees abduction. Extensive extensor substitution hammertoe contractures of digits 2, 3, and 4 bilaterally. Left rearfoot inversion in resting calcaneal stance position at 7 degrees of inversion. The right he was able to supinate supinate into propulsion. Contra-lateral side shows adequate heel strike, though incomplete supination into propulsion. No limb length discrepancy noted bilaterally. ASSESSMENT: A 26-year-old male with significant past medical history, presents with bilateral cavus foot type, paresthesias of foot. PLAN: The patient was seen and evaluated. Charts, labs, and vitals were reviewed. Discussed this patient with the attending, Dr. Hector, who endorsed the following plan. X-rays to be taken of feet bilaterally. The patient to be started on pregabalin 50 mg p.o. t.i.d. Dispense postop shoe for patient to use while in house. Lac-Hydrin prescribed for plantar hyperkeratosis. The patient is stable from Podiatry's standpoint. Podiatry will be signing off. The patient will follow up with Dr. Sanchez Hector on outpatient upon discharge. Eve Geiger DPMaría Sanchez Hector DPM cc: [id number] TT: 10/05/2016 17:23:24 Confirmation # [id number] Dictation # [id number] bebeto MTDD
--- NOTE | 2016-10-06 11:14 | PCM.PYCHPN ---
Psychiatric Progress Note - Psychiatric Progress Note Patient seen today, length of contact: discussed with team Patient Chief Complaint: i get anxious sometimes Problems Identified/Issues Discussed: pt intrusive, attempts to split staff. he takes medications. asking for vistaril for anxiety. states he is not having any auditory/visual hallucinations. no mood lability. Medication Change: Yes (add vistaril) Medical Record Reviewed: Yes Mental Status Examination - Cognitive Function Orientation: Person, Place, Situation, Time Memory: Intact Attention: WNL Concentration: WNL Association: WNL Fund of Knowledge: [facility] Decription of patient's judgement and insights: fair - Mood Mood: Anxious - Affect Affect: Broad - Speech Speech: Appropriate - Formal Thought Process Formal Thought Process: No Impairment Psychotic Thoughts and Behaviors: denies a/v hallucinations - Suicidal Ideation Suicidal Ideation: No Plan: denies suicidal thoughts - Homicidal Ideation Homicidal Ideation: No Goal/Treatment Plan - Goal/Treatment Plan Need for Continued Stay: Remain at risks for inpatient hospitalization, Severe functional impairment Progress Toward Problem(s) and Goals/Treatment Plan: bipolar disorder antisocial personality disorder continue zoloft vistaril 25mg tid standing for anxiety awaiting podiatry consult refer back to outpt providers Estimated Date of D/C: 10/08/16
[2016-10-06 16:40] VITALS: RESP 18
--- NOTE | 2016-10-06 17:09 | RAD ---
PROCEDURE: Bilateral Feet Radiographs. HISTORY: bilateral foot pain. No antecedent history of trauma provided. COMPARISON: None. FINDINGS: BONES: Right Foot: No acute fractures. Left Foot: No acute fractures. JOINTS: Right Foot: Hallux valgus deformities. Multiple hammertoe deformities. Left Foot: Hallux valgus deformities and hammertoe deformities are approximately symmetrical. SOFT TISSUES: Right Foot: Normal. Left Foot: Normal. OTHER FINDINGS: None. IMPRESSION: No acute findings related to/accounting for the clinical presentation. Bilateral hallux valgus deformities. Bilateral hammertoe deformities.
--- NOTE | 2016-10-07 12:31 | PCM.PYCHDC ---
Mental Status Examination - Mental Status Examination Orientation: Person, Place, Situation, Time Memory: Intact Mood: Neutral Affect: Broad Speech: Appropriate Attention: WNL Concentration: WNL Association: WNL Fund of Knowledge: WNL Formal Thought Process: No Impairment Description of patient's judgement and insight: fair Psychotic Thoughts and Behaviors: denies a/v hallucinations Suicidal Ideation: No Current Homicidal Ideation?: No Plan: denies any suicidal or homicidal thoughts/plans or intent Discharge Summary - Discharge Note Reason for Hospitalization: please see dr. munoz's intake assessment. depression, suicidal thoughts Psychiatric History (includes Medical, Family, Personal Hx): history of multiple hospitalizations, group homes, etc from childhood on Consultations:: List each consultation separately and include: 1. Reason for request. 2. Findings. 3. Follow-up Consultations: seen by hospitalist Summary of Hospital Course include:: 1. Description of specific treatment plan utilized for patients during their course of treatmen. 2. Summarize the time- course for resolution of acute symptoms and/or regressed behaviors. 3. Describe issues identified and worked on during hospitalization. 4. Describe medication utilized. 5. Describe medical problems identified and treated. 6. Reassessment of suicide risk Summary of Hospital Course: pt was admitted to [facility] and oriented to the unit. pt placed on routine safety protocols. seen by the hospitalist. seen by the treatment team. started on prolixin, but did not want to continue taking it. his zoloft was adjusted. he was placed on vistaril for anxiety at his request. he was attending groups, but somewhat entitled, demanding, intrusive and splitting staff. he dictated his own medication plan and stated he had not had any psychotic symptoms in 5 years and would not take an antipsychotic. he was in full control of his behaviors and his mood was stable. he asked the treatment team to be discharged and was denying any suicidal or homicidal thoughts during his stay on [facility]. - Final Diagnosis (DSM 5) Condition upon Discharge: STABLE DSM 5: bipolar disorder history of substance abuse- pcp, cannabis, synthetic mj Disposition: HOME/ ROUTINE Follow-up Treatment Plan: follow up with aftercare appointments as directed take medication as prescribed do not use alcohol, tobacco or other illicit substances call 911 if any suicidal or homicidal thoughts attend AA/NA meetings daily pt's prescriptions were eprescribed to his pharmacy of choice in [place] Prescriptions/Medication Reconciliation: Ammonium Lactate 12% [Lac-Hydrin 12% Lotion (225 g)] 1 applic TOP TID #1 bottle hydrOXYzine Pamoate [Vistaril] 25 mg PO TID #45 cap Nicotine 14 mg/24 hr [Nicoderm CQ] 1 patch TD DAILY #30 patch Sertraline [Zoloft] 100 mg PO DAILY #30 tab traZODone [Desyrel] 100 mg PO HS #30 tab
[2016-10-07 12:40] VITALS: BP 121/81; PULSE 71; TEMP 96.1
== END 2016-10-07 12:58 | disposition home or self-care (01) | DRG 885 ==
LOC: H.ER 18:51 → H.ERHOLD 21:57 → H.PSYCH 10-04 00:55
PROVIDERS: ADMIT Psychiatry & Neurology Psychiatry; ATTEND Psychiatry & Neurology Psychiatry
PROC: GZHZZZZ Group Psychotherapy (ICD-10-PCS; principal; 2016-10-04)
PROC: GZ51ZZZ Individual Psychotherapy, Behavioral (ICD-10-PCS; 2016-10-04)
DX: F25.0 Schizoaffective disorder, bipolar type (principal); Z91.14 Patient's other noncompliance with medication regimen; R45.851 Suicidal ideations; F43.10 Post-traumatic stress disorder, unspecified; J45.909 Unspecified asthma, uncomplicated; S61.512A Laceration without foreign body of left wrist, initial encounter; W45.8XXA Other foreign body or object entering through skin, initial encounter; Y93.9 Activity, unspecified; Y92.9 Unspecified place or not applicable; Y99.9 Unspecified external cause status; F12.90 Cannabis use, unspecified, uncomplicated; M79.672 Pain in left foot; M79.671 Pain in right foot; Q66.7 Congenital pes cavus; F17.200 Nicotine dependence, unspecified, uncomplicated; F16.90 Hallucinogen use, unspecified, uncomplicated

== ENCOUNTER 2016-10-17 18:06 | Emergency (ER) | payer MEDICARE, MEDICAID ==
[2016-10-17 18:06] VITALS: BMI 27.5
[2016-10-17 18:30] VITALS: BP 131/71; RESP 18; TEMP 98.1; O2SAT 100
[2016-10-17] MEDS ORDERED: Sodium Chloride 0.9% 1,000 ML IV STA (18:46)
--- NOTE | 2016-10-17 19:03 | ED PDOC ---
HPI: General Adult Time Seen by Provider: 10/17/16 18:23 Chief Complaint (Nursing): Dizziness/Lightheaded History Per: Patient Additional Complaint(s): Pt. states for the past 2 days he's had cough and congestion. Today while he was working he felt like he was going to pass out. He attempted to drink water which provided no relief. Denies fever, sick contacts, recent travel, N/V/D, chest pain, palpitations, SOB, dizziness, headache, head injury. Past Medical History Reviewed: Historical Data, Nursing Documentation, Vital Signs Vital Signs: Last Vital Signs Temp 98.1 F 10/17/16 18:26 Pulse 79 10/17/16 19:51 Resp 18 10/17/16 18:26 BP 131/71 10/17/16 18:26 Pulse Ox 100 10/17/16 19:51 - Medical History PMH: Anxiety, Arthritis, Asthma, Bipolar Disorder, Depression, Post Traumatic Stress Disorder, Schizophrenia, Seizures Denies: Diabetes, Hepatitis, HIV, HTN, Chronic Kidney Disease (alleged chronic kidney disease), Sexually Transmitted Disease - Family History Family History: States: No Known Family Hx - Immunization History Hx Tetanus Toxoid Vaccination: Yes Hx Influenza Vaccination: Yes Hx Pneumococcal Vaccination: No - Home Medications Home Medications: Ambulatory Orders Medication Instructions Recorded Ammonium Lactate 12% [Lac-Hydrin 1 applic TOP TID #1 bottle 10/07/16 12% Lotion (225 g)] Nicotine 14 mg/24 hr [Nicoderm CQ] 1 patch TD DAILY #30 patch 10/07/16 Sertraline [Zoloft] 100 mg PO DAILY #30 tab 10/07/16 hydrOXYzine Pamoate [Vistaril] 25 mg PO TID #45 cap 10/07/16 traZODone [Desyrel] 100 mg PO HS #30 tab 10/07/16 - Allergies Allergies/Adverse Reactions: Allergies Allergy/AdvReac Type Severity Reaction Status Date / Time bee pollen Allergy RASH Verified 09/20/16 03:01 haloperidol [From Haldol] Allergy RASH Verified 09/20/16 03:01 haloperidol lactate Allergy RASH Verified 09/20/16 03:01 [From Haldol] Penicillins Allergy RASH Verified 09/20/16 03:01 Review of Systems ROS Statement: Except As Marked, All Systems Reviewed And Found Negative ENT: Positive for: Nose Congestion Respiratory: Positive for: Cough Neurological: Positive for: Weakness Physical Exam - Reviewed Nursing Documentation Reviewed: Yes Vital Signs Reviewed: Yes - Physical Exam Appears: Positive for: Well, Non-toxic, No Acute Distress Head Exam: Positive for: ATRAUMATIC, NORMAL INSPECTION, NORMOCEPHALIC Skin: Positive for: Normal Color, Warm. Negative for: Rash Eye Exam: Positive for: EOMI, Normal appearance, PERRL ENT: Positive for: Normal ENT Inspection Neck: Positive for: Normal, Painless ROM Cardiovascular/Chest: Positive for: Regular Rate, Rhythm Respiratory: Positive for: CNT, Normal Breath Sounds Gastrointestinal/Abdominal: Positive for: Normal Exam, Soft. Negative for: Tenderness Back: Positive for: Normal Inspection Extremity: Positive for: Normal ROM Neurologic/Psych: Positive for: Alert, Oriented - ECG ECG: Positive for: Interpreted By Me ECG Rhythm: Positive for: Sinus Rhythm. Negative for: ST/T Changes Rate: 79 O2 Sat by Pulse Oximetry: 100 - Progress ED Course And Treament: Labs ordered. IV NS bolus given. EKG ordered. Disposition - Clinical Impression Clinical Impression: Dizziness - Patient ED Disposition Is Patient to be Admitted: Transfer of Care (Signed out to Sandy GRAHAM pending diagnostics.) - Disposition Disposition Time: 20:13 Condition: STABLE
[2016-10-17 19:21] VITALS: PULSE 79
[2016-10-17 20:27] LABS: BASO % 0.4 % (0.0-2.0); EOS # 0.3 K/uL (0.0-0.7); HEMATOCRIT 43.4 % (35.0-51.0); LYMPH # 2.1 K/uL (1.0-4.3); MEAN CELL VOLUME 94.3 fl (80.0-94.0); MEAN CORPUSCULAR HEMOGLOBIN 31.2 pg (27.0-31.0); MEAN CORPUSCULAR HGB CONC 33.1 g/dL (33.0-37.0); MEAN PLATELET VOLUME 8.5 fl (7.2-11.7); MONO # 1.1 K/uL (0.0-0.8); MONO % 11.7 % (0.0-10.0); NEUT # 6.2 K/uL (1.8-7.0); NEUT % 63.9 % (50.0-75.0); NRBC % 0.1 % (0.0-0.0); RED CELL DISTRIBUTION WIDTH 13.8 % (11.5-14.5); WHITE BLOOD COUNT 9.8 K/uL (4.8-10.8)
[2016-10-17 20:36] LABS: ALB/GLOB RATIO 1.5 (1.0-2.1); ALKALINE PHOSPHATASE 49 U/L (38-126); ALT/SGPT 44 U/L (21-72); AST/SGOT 36 U/L (17-59); BILIRUBIN,TOTAL 0.2 mg/dl (0.2-1.3); BLOOD UREA NITROGEN 12 mg/dl (9-20); CALCIUM 8.9 mg/dL (8.4-10.2); CARBON DIOXIDE 25 mmol/L (22-30); CHLORIDE 106 mmol/L (98-107); GFR AFRICAN-AMERICAN > 60; GLUCOSE,RANDOM 94 mg/dL (75-110); POTASSIUM 3.5 MMOL/L (3.6-5.0); SODIUM 140 mmol/l (132-148); TOTAL PROTEIN 6.8 G/DL (6.3-8.2)
--- NOTE | 2016-10-17 21:02 | ED PDOC ---
- Laboratory Results Result Diagrams: 10/17/16 20:19 10/17/16 20:19 - ECG O2 Sat by Pulse Oximetry: 100 Medical Decision Making Medical Decision Making: pt signed out to me pending results. labs wnl. pt feeling better. will d/c home to f/u pmd. Disposition - Clinical Impression Clinical Impression: Viral illness - POA Present On Arrival: None - Disposition Referrals: [facility] [Outside] Disposition: Routine/Home Disposition Time: 21:01 Condition: STABLE Instructions: Viral Syndrome (ED) Forms: [facility] ED School/Work Excuse
== END 2016-10-17 21:20 | disposition home or self-care (01) ==
LOC: H.ER 18:06
DX: B34.9 Viral infection, unspecified (principal); R42 Dizziness and giddiness; R05 Cough; F20.9 Schizophrenia, unspecified; F31.9 Bipolar disorder, unspecified; F41.9 Anxiety disorder, unspecified; F43.10 Post-traumatic stress disorder, unspecified; J45.909 Unspecified asthma, uncomplicated; Z88.0 Allergy status to penicillin
CPT/HCPCS: 80053; 85025; 87040; 87070; 87430; 87804; 99283; J7040

== ENCOUNTER 2016-11-13 22:06 | Inpatient (IN) | payer MEDICARE, MEDICAID ==
[2016-11-13 22:06] VITALS: BMI 27.5
[2016-11-13 22:46] VITALS: O2SAT 95
--- NOTE | 2016-11-13 23:42 | ED PDOC ---
HPI: Psych/Substance Abuse Time Seen by Provider: 11/13/16 23:29 Chief Complaint (Nursing): Psychiatric Evaluation Chief Complaint (Provider): pysch eval History Per: Patient History/Exam Limitations: no limitations Onset/Duration Of Symptoms: Days Current Symptoms Are (Timing): Still Present Suicide/Self Injury Attempted (Context): None Modifying Factor(s): None Associated Symptoms: Suicidal Thoughts, Suicidal Plan (wanted to jump infront of train due to SI ) Past Medical History Reviewed: Historical Data, Nursing Documentation, Vital Signs Vital Signs: Last Vital Signs Temp 98.5 F 11/13/16 22:43 Pulse 82 11/13/16 22:43 Resp 18 11/13/16 22:43 BP 129/76 11/13/16 22:43 Pulse Ox 95 11/13/16 22:43 - Medical History PMH: Anxiety, Arthritis, Asthma, Bipolar Disorder, Depression, Post Traumatic Stress Disorder, Schizophrenia, Seizures (as per pt hx of) Denies: Diabetes, Hepatitis, HIV, HTN, Chronic Kidney Disease (alleged chronic kidney disease), Sexually Transmitted Disease - Family History Family History: States: Unknown Family Hx - Immunization History Hx Tetanus Toxoid Vaccination: Yes Hx Influenza Vaccination: Yes Hx Pneumococcal Vaccination: No - Home Medications Home Medications: Ambulatory Orders Medication Instructions Recorded Ammonium Lactate 12% [Lac-Hydrin 1 applic TOP TID #1 bottle 10/07/16 12% Lotion (225 g)] Nicotine 14 mg/24 hr [Nicoderm CQ] 1 patch TD DAILY #30 patch 10/07/16 Sertraline [Zoloft] 100 mg PO DAILY #30 tab 10/07/16 hydrOXYzine Pamoate [Vistaril] 25 mg PO TID #45 cap 10/07/16 traZODone [Desyrel] 100 mg PO HS #30 tab 10/07/16 Albuterol HFA [Ventolin HFA 90 0.09 mg IH Q6 #1 puff 10/17/16 mcg/actuation (8 g)] - Allergies Allergies/Adverse Reactions: Allergies Allergy/AdvReac Type Severity Reaction Status Date / Time bee pollen Allergy RASH Verified 11/13/16 22:42 haloperidol [From Haldol] Allergy RASH Verified 11/13/16 22:42 haloperidol lactate Allergy RASH Verified 11/13/16 22:42 [From Haldol] Penicillins Allergy RASH Verified 11/13/16 22:42 Review of Systems ROS Statement: Except As Marked, All Systems Reviewed And Found Negative Physical Exam - Reviewed Nursing Documentation Reviewed: Yes Vital Signs Reviewed: Yes - Physical Exam Appears: Positive for: Well, Non-toxic, No Acute Distress Head Exam: Positive for: ATRAUMATIC, NORMAL INSPECTION, NORMOCEPHALIC Skin: Positive for: Normal Color, Warm, DRY Eye Exam: Positive for: EOMI, Normal appearance, PERRL ENT: Positive for: Normal ENT Inspection Neck: Positive for: Normal, Painless ROM Cardiovascular/Chest: Positive for: Regular Rate, Rhythm Respiratory: Positive for: CNT, Normal Breath Sounds Gastrointestinal/Abdominal: Positive for: Normal Exam, Bowel Sounds, Soft Back: Positive for: Normal Inspection Extremity: Positive for: Normal ROM Neurologic/Psych: Positive for: Alert, Oriented - ECG O2 Sat by Pulse Oximetry: 95 - Progress ED Course And Treament: PT will get ciris evaluation placed on 1:1 observation. ED OBSERVATION Date of observation admission: 11/13/16 Time of observation admission: 23:53 - Observation admission statement Patient is being placed in observation because:: Pt will need crisis eval - Goals of Observation Goals of observation are:: crisis evaluation. - Progress Note Progress Note: 11/13/16 23:59 Pt is well and calm at this moment. Disposition - Clinical Impression Clinical Impression: Suicidal ideation - Patient ED Disposition Is Patient to be Admitted: Transfer of Care Counseled Patient/Family Regarding: Need For Followup - Disposition Disposition: Routine/Home Disposition Time: 00:02 Condition: STABLE Patient Signed Over To: Tomas Frost
[2016-11-13 23:55] LABS: BASO # 0.2 K/uL (0.0-0.2); BASO % 1.4 % (0.0-2.0); EOS # 0.4 K/uL (0.0-0.7); EOS % 3.2 % (0.0-4.0); HEMATOCRIT 43.4 % (35.0-51.0); LYMPH # 4.8 K/uL (1.0-4.3); LYMPH % 38.3 % (20.0-40.0); MEAN CORPUSCULAR HEMOGLOBIN 30.8 pg (27.0-31.0); MEAN CORPUSCULAR HGB CONC 33.1 g/dL (33.0-37.0); MEAN PLATELET VOLUME 8.1 fl (7.2-11.7); MONO # 0.9 K/uL (0.0-0.8); MONO % 7.5 % (0.0-10.0); NEUT # 6.2 K/uL (1.8-7.0); NEUT % 49.6 % (50.0-75.0); NRBC % 0.1 % (0.0-0.0); RED CELL DISTRIBUTION WIDTH 13.7 % (11.5-14.5); WHITE BLOOD COUNT 12.5 K/uL (4.8-10.8)
--- NOTE | 2016-11-14 00:04 | ED PDOC ---
- Laboratory Results Result Diagrams: 11/13/16 23:51 11/13/16 23:51 - ECG O2 Sat by Pulse Oximetry: 95 - Progress ED Course And Treament: seen by crisis Cleared by Dr. Stark Diagnosis Depression Disposition - Clinical Impression Clinical Impression: Suicidal ideation - POA Present On Arrival: None - Disposition Disposition: Admitted as In-Patient Disposition Time: 02:13 Condition: STABLE
[2016-11-14 00:13] LABS: ALB/GLOB RATIO 1.4 (1.0-2.1); ALCOHOL SERUM < 10 mg/dl (0-10); ALKALINE PHOSPHATASE 53 U/L (38-126); ALT/SGPT 50 U/L (21-72); AST/SGOT 26 U/L (17-59); BILIRUBIN,TOTAL 0.2 mg/dl (0.2-1.3); BLOOD UREA NITROGEN 11 mg/dl (9-20); CALCIUM 9.2 mg/dL (8.4-10.2); CARBON DIOXIDE 24 mmol/L (22-30); CHLORIDE 108 mmol/L (98-107); GFR AFRICAN-AMERICAN > 60; GLUCOSE,RANDOM 85 mg/dL (75-110); POTASSIUM 3.7 MMOL/L (3.6-5.0); SODIUM 141 mmol/l (132-148); TOTAL PROTEIN 6.8 G/DL (6.3-8.2)
[2016-11-14 02:12] LABS: RBC URINE 1 /hpf (0-3); URINE BILIRUBIN NEGATIVE (NEGATIVE); URINE BLOOD NEGATIVE (NEGATIVE); URINE COLOR YELLOW (YELLOW); URINE GLUCOSE (UA) NEG (Normal); URINE KETONE TRACE mg/dL (NEGATIVE); URINE LEUKOCYTE ESTERASE NEG Leu/uL (Negative); URINE PROTEIN 30 mg/dL (NEGATIVE); WBC URINE 2 /hpf (0-5)
[2016-11-14] MEDS ORDERED: Magnesium Hydroxide Susp 30 ml UD PO PRN (03:34)
[2016-11-14] MEDS ORDERED: DiphenhydrAMINE 50 mg/ml Inj IM PRN (03:34)
[2016-11-14] MEDS ORDERED: Alum-Mag Hydrox-Simethicone Susp (30 mL) PO PRN (03:34)
[2016-11-14] MEDS ORDERED: Bismuth Subsalicylate 262 mg/15 ml Sus (240 ml) PO PRN (03:39)
[2016-11-14 08:25] LABS: T4 5.52 ug/dl (5.5-11.0)
[2016-11-14 08:39] LABS: THYROID STIMULATING HORMONE 1.33 mIU/ML (0.46-4.68)
--- NOTE | 2016-11-14 08:43 | RAD ---
HISTORY: cough COMPARISON: Comparison made with prior chest radiograph 10/03/2016 TECHNIQUE: Chest PA and lateral FINDINGS: LUNGS: Minimal bibasilar atelectasis. Lung juan are otherwise clear. PLEURA: No significant pleural effusion identified. No pneumothorax apparent. CARDIOVASCULAR: Normal. OSSEOUS STRUCTURES: No significant abnormalities. VISUALIZED UPPER ABDOMEN: Normal. OTHER FINDINGS: None. IMPRESSION: Minimal bibasilar atelectasis the
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
--- NOTE | 2016-11-14 13:12 | CP.PCM.CON ---
History of Present Illness - History of Present Illness History of Present Illness: 26 yo male with history of Asthma and Schizoaffective DO admitted in psyche unit because of depression and suicidal ideation. Review of Systems - Review of Systems All systems: reviewed and no additional remarkable complaints except (aside from those mentioned above, 12 point system review were negative by me) Past Patient History - Infectious Disease Hx of Infectious Diseases: None - Tetanus Immunizations Tetanus Immunization: Unknown - Past Medical History & Family History Past Medical History?: Yes - Past Social History Smoking Status: Heavy Smoker > 10 Cigarettes Daily Alcohol: None Drugs: Denies - CARDIAC Hx Cardiac Disorders: No Hx Hypertension: No - PULMONARY Hx Asthma: Yes Hx Tuberculosis: No - NEUROLOGICAL HX Cerebrovascular Accident: No Hx Seizures: No - HEENT Hx HEENT Problems: No - RENAL Hx Chronic Kidney Disease: Yes (alleged chronic kidney disease) - ENDOCRINE/METABOLIC Hx Endocrine Disorders: No - HEMATOLOGICAL/ONCOLOGICAL Hx Cancer: No Hx Human Immunodeficiency Virus (HIV): No - INTEGUMENTARY Hx Dermatological Problems: No - MUSCULOSKELETAL/RHEUMATOLOGICAL Hx Musculoskeletal Disorders: No - GASTROINTESTINAL Hx Gastrointestinal Disorders: No - GENITOURINARY/GYNECOLOGICAL Hx Sexually Transmitted Disorders: No - PSYCHIATRIC Hx Depression: Yes Hx Substance Use: Yes - SURGICAL HISTORY Hx Surgeries: No - ANESTHESIA Hx Anesthesia: No Hx Anesthesia Reactions: No Hx Malignant Hyperthermia: No Meds Allergies/Adverse Reactions: Allergies Allergy/AdvReac Type Severity Reaction Status Date / Time bee pollen Allergy RASH Verified 11/13/16 22:42 haloperidol [From Haldol] Allergy RASH Verified 11/13/16 22:42 haloperidol lactate Allergy RASH Verified 11/13/16 22:42 [From Haldol] Penicillins Allergy RASH Verified 11/13/16 22:42 - Medications Medications: Current Medications Acetaminophen (Tylenol 325mg Tab) 650 mg PO Q4 PRN PRN Reason: Pain, moderate (4-7) Al Hydrox/Mg Hydrox/Simethicone (Maalox Plus 30 Ml) 30 ml PO Q4 PRN PRN Reason: Dyspepsia Bismuth Subsalicylate (Pepto-Bismol) 524 mg PO Q4 PRN PRN Reason: Diarrhea Chlorpromazine (Thorazine) 100 mg PO HS CARL Diphenhydramine HCl (Benadryl) 50 mg IM Q6 PRN PRN Reason: Extrapyramidal S/S Unable PO Diphenhydramine HCl (Benadryl) 50 mg PO Q6 PRN PRN Reason: Extrapyramidal Symptoms Diphenhydramine HCl (Benadryl) 50 mg PO HS PRN PRN Reason: Sleep Lorazepam (Ativan) 2 mg IM Q4 PRN PRN Reason: Anxiety/Agitation,Unable PO Lorazepam (Ativan) 2 mg PO Q4 PRN PRN Reason: Anxiety/Agitation Magnesium Hydroxide (Milk Of Magnesia) 30 ml PO HS PRN PRN Reason: Constipation Sertraline HCl (Zoloft) 100 mg PO DAILY CARL Last Admin: 11/14/16 09:53 Dose: 100 mg Physical Exam - Constitutional Appears: No Acute Distress - Head Exam Head Exam: ATRAUMATIC - Eye Exam Eye Exam: absent: Scleral icterus - ENT Exam ENT Exam: Mucous Membranes Moist - Neck Exam Neck exam: Negative for: Meningismus - Respiratory Exam Respiratory Exam: absent: Rhonchi, Wheezes, Respiratory Distress - Cardiovascular Exam Cardiovascular Exam: REGULAR RHYTHM, +S1, +S2 - GI/Abdominal Exam GI & Abdominal Exam: Soft. absent: Tenderness - Rectal Exam Rectal Exam: Deferred - Neurological Exam Neurological exam: Alert, Oriented x3 - Psychiatric Exam Psychiatric exam: Normal Affect - Skin Skin Exam: Dry, Intact Results - Vital Signs Recent Vital Signs: Last Vital Signs Temp 97 F L 11/14/16 05:52 Pulse 76 11/14/16 05:52 Resp 18 11/14/16 05:52 BP 128/86 11/14/16 05:52 Pulse Ox 95 11/14/16 02:13 - Labs Result Diagrams: 11/13/16 23:51 11/13/16 23:51 Labs: Laboratory Results - last 24 hr 11/14/16 06:00 Triglycerides 93 Cholesterol 158 LDL Cholesterol Direct 116 HDL Cholesterol 37 Thyroxine (T4) 5.52 TSH 3rd Generation 1.33 Assessment & Plan (1) Suicidal ideation Status: Acute Comment: psyche is managing (2) Asthma Status: Inactive Comment: asymptomatic
--- NOTE | 2016-11-14 13:59 | CARD ---
APPROVED REPORT EKG Measurement Heart [id number] <Conclusion> Normal sinus rhythm Normal ECG
[2016-11-15 09:16] VITALS: RESP 20
--- NOTE | 2016-11-15 10:50 | PCM.PYCHPN ---
Psychiatric Progress Note - Psychiatric Progress Note Patient seen today, length of contact: Patient evaluated, case discussed with team, chart reviewed Patient Chief Complaint: "I am depressed" Problems Identified/Issues Discussed: Patient reports that he feels depressed, but his mood is bright and he is observed interacting cheerfully with staff and peers. He continues to denies that he was at [facility] a week ago, despite records indicating this. He denies adverse effects to his medications. Denies current AH/VH/SI/HI. Medication Change: No Medical Record Reviewed: Yes Consults ordered or reviewed: Medicine consult Mental Status Examination - Cognitive Function Orientation: Person, Place, Situation, Time Memory: Intact Attention: WNL Concentration: WNL Association: WNL Fund of Knowledge: WNL - Mood Mood: Depressed - Affect Affect: Broad - Speech Speech: Appropriate - Formal Thought Process Formal Thought Process: No Impairment Psychotic Thoughts and Behaviors: NO AH/VH/paranoia/delusions - Suicidal Ideation Suicidal Ideation: No - Homicidal Ideation Homicidal Ideation: No Goal/Treatment Plan - Goal/Treatment Plan Need for Continued Stay: Remain at risks for inpatient hospitalization, Severe depression anxiety Progress Toward Problem(s) and Goals/Treatment Plan: 26 yo male w/ h/o Schizoaffective Disorder, r/o substance induced mood and psychotic disorder; PCP Use Disorder, Marijuana Use Disorder, Antisocial personality disorder vs traits, presented with worsening depression and suicidal ideation in the context of intermittent compliance with medications. Patient is able to contract for safety at this time. -Continue Zoloft 100 mg PO Daily and Thorazine 100 mg PO HS -Individual and group therapy -Disposition planning -Hospitalist consult appreciated Estimated Date of D/C: 11/17/16
--- NOTE | 2016-11-16 12:06 | PCM.PYCHPN ---
Psychiatric Progress Note - Psychiatric Progress Note Patient seen today, length of contact: in treatment team Patient Chief Complaint: i just need my medications and i will go wednesday Problems Identified/Issues Discussed: pt states he feels better now that he is back on his medications. states he is suing his other outpt psychiatrist and has reported him to the division of mental health. pt is stating all he needs is to be back on his medications. he wants to leave the hospital Wednesday. he denies any medication side effects. Medication Change: No Medical Record Reviewed: Yes Mental Status Examination - Cognitive Function Orientation: Person, Place, Situation, Time Memory: Intact Attention: WNL Concentration: WNL Association: WN Fund of Knowledge: [facility] Decription of patient's judgement and insights: fair - Mood Mood: Depressed - Affect Affect: Broad - Speech Speech: Appropriate - Formal Thought Process Formal Thought Process: No Impairment - Suicidal Ideation Suicidal Ideation: No - Homicidal Ideation Homicidal Ideation: No Goal/Treatment Plan - Goal/Treatment Plan Need for Continued Stay: Remain at risks for inpatient hospitalization, Severe depression anxiety Progress Toward Problem(s) and Goals/Treatment Plan: schizoaffective disorder continue current treatment discharge weds will arrange f/u, but pt refusing to go to any clinic and wants to see pvt provider who will only charge up to 30dollars copay Estimated Date of D/C: 11/17/16
[2016-11-16 16:51] VITALS: BP 134/75; PULSE 96; TEMP 97.3
[2016-11-16] MEDS ORDERED: Menthol/Methyl Salicylate Oinment TOP PRN (18:53)
--- NOTE | 2016-11-16 19:04 | CP.PCM.PN ---
Subjective - Date & Time of Evaluation Date of Evaluation: 11/16/16 Time of Evaluation: 18:30 - Subjective Subjective: Patient seen and evaluated .Complaining of bilateral shoulder pain, decreased ROM and gives history of multiple episodes of shoulder dislocations in the past. As per patient he is on Motrin 800 mg po TID and Bengay topical and is requesting these meds for pain relief. Gives history of Asthma with Albuterol use BID and is asking for Duonebs Objective - Vital Signs/Intake and Output Vital Signs (last 24 hours): Temp Pulse Resp BP Pulse Ox 97.3 F L 96 H 20 134/75 95 11/16/16 16:50 11/16/16 16:50 11/16/16 16:50 11/16/16 16:50 11/14/16 02:13 - Medications Medications: Current Medications Acetaminophen (Tylenol 325mg Tab) 650 mg PO Q4 PRN PRN Reason: Pain, moderate (4-7) Al Hydrox/Mg Hydrox/Simethicone (Maalox Plus 30 Ml) 30 ml PO Q4 PRN PRN Reason: Dyspepsia Bismuth Subsalicylate (Pepto-Bismol) 524 mg PO Q4 PRN PRN Reason: Diarrhea Camphor/Menthol (Bengay) 1 applic TOP QID PRN PRN Reason: Arthritis Chlorpromazine (Thorazine) 100 mg PO HS CARL Last Admin: 11/15/16 21:24 Dose: 100 mg Diphenhydramine HCl (Benadryl) 50 mg IM Q6 PRN PRN Reason: Extrapyramidal S/S Unable PO Diphenhydramine HCl (Benadryl) 50 mg PO Q6 PRN PRN Reason: Extrapyramidal Symptoms Diphenhydramine HCl (Benadryl) 50 mg PO HS PRN PRN Reason: Sleep Ibuprofen (Motrin Tab) 600 mg PO Q6 PRN PRN Reason: Pain, moderate (4-7) Last Admin: 11/16/16 17:55 Dose: 600 mg Lorazepam (Ativan) 2 mg IM Q4 PRN PRN Reason: Anxiety/Agitation,Unable PO Lorazepam (Ativan) 2 mg PO Q4 PRN PRN Reason: Anxiety/Agitation Magnesium Hydroxide (Milk Of Magnesia) 30 ml PO HS PRN PRN Reason: Constipation Nicotine (Nicoderm Cq) 1 patch TD DAILY [facility] Last Admin: 11/16/16 09:17 Dose: 1 patch Sertraline HCl (Zoloft) 100 mg PO DAILY [facility] Last Admin: 11/16/16 09:17 Dose: 100 mg - Constitutional Appears: Non-toxic, No Acute Distress - Head Exam Head Exam: ATRAUMATIC, NORMAL INSPECTION - Eye Exam Eye Exam: EOMI, Normal appearance, PERRL - ENT Exam ENT Exam: Mucous Membranes Moist, Normal Exam - Neck Exam Neck Exam: Full ROM, Normal Inspection - Respiratory Exam Respiratory Exam: Clear to Ausculation Bilateral, NORMAL BREATHING PATTERN. absent: Prolonged Expiratory Phase, Wheezes, Respiratory Distress - Cardiovascular Exam Cardiovascular Exam: REGULAR RHYTHM, RRR, +S1, +S2. absent: JVD - GI/Abdominal Exam GI & Abdominal Exam: Soft, Normal Bowel Sounds. absent: Distended, Guarding, Tenderness, Rebound - Rectal Exam Rectal Exam: Deferred - Extremities Exam Extremities Exam: absent: Calf Tenderness, Joint Swelling, Pedal Edema Additional comments: Decresaed ROM to bilateral shoulders with active movement - Neurological Exam Neurological Exam: Alert, Awake, CN II-XII Intact, Oriented x3 - Psychiatric Exam Psychiatric exam: Flat Affect - Skin Skin Exam: Dry, Warm Assessment and Plan (1) Chronic pain of both shoulders Assessment & Plan: will start Motrin 600 mg po Q6 PRN for pain Bengay topical Start protonix Status: Chronic (2) Psychiatric disorder Assessment & Plan: Management as per psych Status: Acute (3) Asthma Assessment & Plan: Albuterol PRN Status: Chronic
[2016-11-17] MEDS ORDERED: Pantoprazole 40 mg EC Tab PO SCH (09:00)
--- NOTE | 2016-11-17 10:40 | PCM.PYCHDC ---
Mental Status Examination - Mental Status Examination Orientation: Person, Place, Situation, Time Memory: Intact Mood: Neutral Affect: Broad Speech: Appropriate Attention: WNL Concentration: WNL Association: WNL Fund of Knowledge: WNL Formal Thought Process: No Impairment Description of patient's judgement and insight: fair Psychotic Thoughts and Behaviors: denies a/v hallucinations Suicidal Ideation: No Current Homicidal Ideation?: No Plan: pt denies any suicidal or homicidal thoughts, plans or intent Discharge Summary - Discharge Note Reason for Hospitalization: pt expressed suicidal thoughts in ER Psychiatric History (includes Medical, Family, Personal Hx): history of schizoaffective disorder, multiple admissions Consultations:: List each consultation separately and include: 1. Reason for request. 2. Findings. 3. Follow-up Consultations: seen by hospitalist Summary of Hospital Course include:: 1. Description of specific treatment plan utilized for patients during their course of treatmen. 2. Summarize the time- course for resolution of acute symptoms and/or regressed behaviors. 3. Describe issues identified and worked on during hospitalization. 4. Describe medication utilized. 5. Describe medical problems identified and treated. 6. Reassessment of suicide risk Summary of Hospital Course: pt was admitted to [facility] and oriented to the unit. pt was placed on routine safety protocols. seen by the hospitalist. pt was started on his medications of choice. his symptoms improved and he did not report any side effects. the patient asked the treatment team for discharge. he was refusing the allow the team to refer him to outpt treatment. at the time of discharge he was denying any suicidal or homicidal thoughts. - Final Diagnosis (DSM 5) Condition upon Discharge: STABLE DSM 5: schizoaffective disorder Disposition: HOME/ ROUTINE Follow-up Treatment Plan: take medications as prescribed do not use alcohol, tobacco or other illicit substances call 911 if any suicidal or homicidal thoughts Prescriptions/Medication Reconciliation: chlorproMAZINE [Thorazine] 100 mg PO HS #15 tab Nicotine 21 mg/24 hr [Nicoderm Cq] 1 patch TD DAILY #30 patch Pantoprazole [Protonix EC Tab] 40 mg PO DAILY #15 ect Sertraline [Zoloft] 100 mg PO DAILY #15 tab - Smoking Cessation Smoking Cessation Medication prescribed: Yes - Antipsychotic Medications Pt discharged on 2 or more routine antipsychotic medications: No
== END 2016-11-17 09:55 | disposition home or self-care (01) | DRG 885 ==
LOC: H.ER 22:06 → H.ERHOLD 11-14 02:23 → H.STEP 11-14 03:25 → H.PSYCH 11-14 20:00
PROVIDERS: ADMIT Psychiatry & Neurology Psychiatry; ATTEND Psychiatry & Neurology Psychiatry
PROC: GZHZZZZ Group Psychotherapy (ICD-10-PCS; principal; 2016-11-14)
DX: F25.9 Schizoaffective disorder, unspecified (principal); R45.851 Suicidal ideations; G62.9 Polyneuropathy, unspecified; G89.29 Other chronic pain; J45.909 Unspecified asthma, uncomplicated; F17.210 Nicotine dependence, cigarettes, uncomplicated; Z88.0 Allergy status to penicillin; M19.90 Unspecified osteoarthritis, unspecified site; F12.90 Cannabis use, unspecified, uncomplicated

== ENCOUNTER 2016-12-03 19:24 | Emergency (ER) | payer OTHER, MEDICARE, MEDICAID ==
[2016-12-03 19:25] VITALS: BMI 27.5
[2016-12-03 19:37] VITALS: BP 137/77; PULSE 90; RESP 18; TEMP 97.7; O2SAT 100
--- NOTE | 2016-12-03 20:15 | ED PDOC ---
HPI: Headache Time Seen by Provider: 12/03/16 20:05 Chief Complaint (Nursing): Headache Chief Complaint (Provider): Chronic right sided headache History Per: Patient History/Exam Limitations: no limitations Onset/Duration Of Symptoms: Days Current Symptoms Are (Timing): Still Present Severity: Moderate Pain Scale Rating Of: 6 Front/Back Head: 1 - Sharp Past Medical History Reviewed: Historical Data, Nursing Documentation, Vital Signs Vital Signs: Last Vital Signs Temp 97.7 F 12/03/16 19:33 Pulse 90 12/03/16 19:33 Resp 18 12/03/16 19:33 BP 137/77 12/03/16 19:33 Pulse Ox 100 12/03/16 19:33 - Medical History PMH: Anxiety, Arthritis, Asthma, Bipolar Disorder, Depression, Post Traumatic Stress Disorder, Chronic Kidney Disease (alleged chronic kidney disease), Schizophrenia Denies: Diabetes, Hepatitis, HIV, HTN, Seizures, Sexually Transmitted Disease - Family History Family History: States: Unknown Family Hx - Immunization History Hx Tetanus Toxoid Vaccination: Yes Hx Influenza Vaccination: Yes Hx Pneumococcal Vaccination: No - Home Medications Home Medications: Ambulatory Orders Medication Instructions Recorded Nicotine 21 mg/24 hr [Nicoderm Cq] 1 patch TD DAILY #30 patch 11/17/16 Pantoprazole [Protonix EC Tab] 40 mg PO DAILY #15 ect 11/17/16 Sertraline [Zoloft] 100 mg PO DAILY #15 tab 11/17/16 chlorproMAZINE [Thorazine] 100 mg PO HS #15 tab 11/17/16 - Allergies Allergies/Adverse Reactions: Allergies Allergy/AdvReac Type Severity Reaction Status Date / Time bee pollen Allergy RASH Verified 11/13/16 22:42 haloperidol [From Haldol] Allergy RASH Verified 11/13/16 22:42 haloperidol lactate Allergy RASH Verified 11/13/16 22:42 [From Haldol] Penicillins Allergy RASH Verified 11/13/16 22:42 Physical Exam - Reviewed Nursing Documentation Reviewed: Yes Vital Signs Reviewed: Yes - Physical Exam Appears: Positive for: Well, Non-toxic, No Acute Distress Head Exam: Positive for: ATRAUMATIC, NORMAL INSPECTION, NORMOCEPHALIC Skin: Positive for: Normal Color, Warm, DRY Eye Exam: Positive for: EOMI, Normal appearance, PERRL ENT: Positive for: Normal ENT Inspection Neck: Positive for: Normal, Painless ROM Cardiovascular/Chest: Positive for: Regular Rate, Rhythm Respiratory: Positive for: Normal Breath Sounds. Negative for: Accessory Muscle Use, Respiratory Distress Back: Positive for: Normal Inspection Extremity: Positive for: Normal ROM. Negative for: Tenderness Neurologic/Psych: Positive for: Alert, vault person II-XII, Oriented, Cerebellar Tests, Gait. Negative for: Motor/Sensory Deficits, Mood/Affect (Aggressive ), Aphasia - ECG O2 Sat by Pulse Oximetry: 100 Medical Decision Making Medical Decision Making: Pt yelling and cursing at filling technician on his arrival to the holding area. Pt is becomes very aggressive when told he is not going to be given narcotics. Pt continues to yell and curse at myself, RN and security. Pts Rx reviewed. Pt has multiple prescriptions for tramadol, Tylenol #3, percocet and ativan over the last year. Disposition - Clinical Impression Clinical Impression: Headache - Patient ED Disposition Is Patient to be Admitted: No - Disposition Disposition: Routine/Home Disposition Time: 20:15 Condition: GOOD Instructions: Acute Headache (ED)
== END 2016-12-03 20:58 | disposition home or self-care (01) ==
LOC: H.ER 19:24
DX: R51 Headache (principal); F20.9 Schizophrenia, unspecified; F31.9 Bipolar disorder, unspecified; F43.10 Post-traumatic stress disorder, unspecified; J45.909 Unspecified asthma, uncomplicated; N18.9 Chronic kidney disease, unspecified; Z88.0 Allergy status to penicillin

== ENCOUNTER 2017-03-17 12:36 | Inpatient (IN) | payer OTHER, MEDICAID ==
[2017-03-17 12:36] VITALS: BMI 27.5
[2017-03-17 12:45] VITALS: PULSE 73; O2SAT 100
--- NOTE | 2017-03-17 12:48 | ED PDOC ---
HPI: Psych/Substance Abuse Time Seen by Provider: 03/17/17 12:45 Chief Complaint (Nursing): Psychiatric Evaluation Chief Complaint (Provider): Psych evaluation History Per: Patient History/Exam Limitations: no limitations Onset/Duration Of Symptoms: Other (Two weeks) Additional History Per: EMS Additional Complaint(s): Patient is a 26 y/o male with a past medical history of asthma brought to the emergency department by [place] police and EMS for a psych evaluation. Patient reports suicidal ideation with a plan for the past two weeks. Reports calling [employer] and his insurance company on Wednesday (03/12/17) and today in which he made claims and complaints about not receiving an earlier appointment and admitting to intermittent thoughts of suicide. Following the call, the insurance company had a staff clinician call him, and patient once again admitted to suicidal ideation with a plan to jump in front of a car or slit his wrists. The clinician called police in response. At present, patient denies such conversations today with clinician and insurance company. Also denies active suicidal ideation, homicidal ideation, hallucinations, or other complaints. PCP: none provided. Past Medical History Reviewed: Historical Data, Nursing Documentation, Vital Signs Vital Signs: Last Vital Signs Temp 98.1 F 03/17/17 12:42 Pulse 73 03/17/17 12:42 Resp 16 03/17/17 12:42 BP 154/84 H 03/17/17 12:42 Pulse Ox 100 03/17/17 12:42 - Medical History PMH: Anxiety, Arthritis, Asthma, Bipolar Disorder, Depression, Post Traumatic Stress Disorder, Chronic Kidney Disease (alleged chronic kidney disease), Schizophrenia Denies: Diabetes, Hepatitis, HIV, HTN, Seizures, Sexually Transmitted Disease - Surgical History Surgical History: No Surg Hx - Family History Family History: States: Unknown Family Hx - Social History Current smoker - smoking cessation education provided: Yes Ex-Smoker (has not smoked in the last 12 months): No Alcohol: None - Immunization History Hx Tetanus Toxoid Vaccination: Yes Hx Influenza Vaccination: Yes Hx Pneumococcal Vaccination: No - Home Medications Home Medications: Ambulatory Orders Medication Instructions Recorded Nicotine 21 mg/24 hr [Nicoderm Cq] 1 patch TD DAILY #30 patch 11/17/16 Pantoprazole [Protonix EC Tab] 40 mg PO DAILY #15 ect 11/17/16 Sertraline [Zoloft] 100 mg PO DAILY #15 tab 11/17/16 chlorproMAZINE [Thorazine] 100 mg PO HS #15 tab 11/17/16 - Allergies Allergies/Adverse Reactions: Allergies Allergy/AdvReac Type Severity Reaction Status Date / Time bee pollen Allergy RASH Verified 03/17/17 12:38 haloperidol [From Haldol] Allergy RASH Verified 03/17/17 12:38 haloperidol lactate Allergy RASH Verified 03/17/17 12:38 [From Haldol] Penicillins Allergy RASH Verified 03/17/17 12:38 Review of Systems ROS Statement: Except As Marked, All Systems Reviewed And Found Negative Psych: Negative for: Suicidal ideation (homicidal ideation), Other ( hallucinations) Physical Exam - Reviewed Nursing Documentation Reviewed: Yes Vital Signs Reviewed: Yes - Physical Exam Appears: Positive for: Non-toxic, No Acute Distress Head Exam: Positive for: ATRAUMATIC, NORMAL INSPECTION, NORMOCEPHALIC Skin: Positive for: Normal Color, Warm, Dry Eye Exam: Positive for: Normal appearance Neck: Positive for: Normal Cardiovascular/Chest: Positive for: Regular Rate, Rhythm Respiratory: Negative for: Accessory Muscle Use, Respiratory Distress Extremity: Positive for: Normal ROM Neurologic/Psych: Positive for: Alert, Oriented (x3) - Laboratory Results Result Diagrams: 03/17/17 14:45 03/17/17 14:45 - ECG O2 Sat by Pulse Oximetry: 100 (RA) Pulse Ox Interpretation: Normal Medical Decision Making Medical Decision Making: Time: 12:45 Initial impression: Psych evaluation Initial plan: Labs: Alcohol serum, CMP, Urine drug screening, CBC Crisis evaluation 1:1 Observation for suicidal thoughts and risk for elopement [place] police and security staff present with patient. Patient is now compliant with plan for admission. 13:47 Dr. Arzola agrees to admit patient for schizoaffective disorder. 15:13 Pt is medically cleared. ~ Scribe Attestation: Documented by Sarika Sethi, acting as a scribe for ISAAC Baez. Provider Scribe Attestation: All medical record entries made by the Scribe were at my direction and personally dictated by me. I have reviewed the chart and agree that the record accurately reflects my personal performance of the history, physical exam, medical decision making, and the department course for this patient. I have also personally directed, reviewed, and agree with the discharge instructions and disposition. Disposition - Clinical Impression Clinical Impression: Schizoaffective disorder - Patient ED Disposition Is Patient to be Admitted: Yes Discussed With : Nichol Walker Badr Doctor Will See Patient In The: Hospital - Disposition Disposition Time: 13:47 Condition: STABLE Forms: [facility] ([place])
[2017-03-17 14:50] LABS: BASO # 0.1 K/uL (0.0-0.2); BASO % 0.6 % (0.0-2.0); EOS # 0.2 K/uL (0.0-0.7); EOS % 1.9 % (0.0-4.0); HEMATOCRIT 44.5 % (35.0-51.0); LYMPH # 2.7 K/uL (1.0-4.3); LYMPH % 25.1 % (20.0-40.0); MEAN CELL VOLUME 92.2 fl (80.0-94.0); MEAN CORPUSCULAR HEMOGLOBIN 31.9 pg (27.0-31.0); MEAN CORPUSCULAR HGB CONC 34.6 g/dL (33.0-37.0); MEAN PLATELET VOLUME 7.7 fl (7.2-11.7); MONO # 0.7 K/uL (0.0-0.8); MONO % 6.9 % (0.0-10.0); NEUT # 6.9 K/uL (1.8-7.0); NEUT % 65.5 % (50.0-75.0); NRBC % 0.1 % (0.0-0.0); RED CELL DISTRIBUTION WIDTH 13.2 % (11.5-14.5); WHITE BLOOD COUNT 10.6 K/uL (4.8-10.8)
[2017-03-17 14:59] LABS: ALB/GLOB RATIO 1.5 (1.0-2.1); ALCOHOL SERUM < 10 mg/dl (0-10); ALKALINE PHOSPHATASE 54 U/L (38-126); ALT/SGPT 29 U/L (21-72); AST/SGOT 22 U/L (17-59); BILIRUBIN,TOTAL 0.4 mg/dl (0.2-1.3); BLOOD UREA NITROGEN 10 mg/dl (9-20); CALCIUM 9.8 mg/dL (8.4-10.2); CARBON DIOXIDE 25 mmol/L (22-30); CHLORIDE 109 mmol/L (98-107); GFR AFRICAN-AMERICAN > 60; GLUCOSE,RANDOM 95 mg/dL (75-110); POTASSIUM 4.3 MMOL/L (3.6-5.0); SODIUM 144 mmol/l (132-148); TOTAL PROTEIN 7.9 G/DL (6.3-8.2)
[2017-03-17 18:04] VITALS: RESP 18
[2017-03-17] MEDS ORDERED: Magnesium Hydroxide Susp 30 ml UD PO PRN (18:39)
[2017-03-17] MEDS ORDERED: DiphenhydrAMINE 50 mg/ml Inj IM PRN (18:39)
[2017-03-17] MEDS ORDERED: Alum-Mag Hydrox-Simethicone Susp (30 mL) PO PRN (18:39)
--- NOTE | 2017-03-17 19:35 | PCM.BM ---
Treatment Plan Problems - Problems identified on initial assessmt Hopelessness/Helplessness Date Initiated: 03/17/17 Time Initiated: 18:00 Assessment reference: NA Status: Active Treatment assets and liabiliti Patient Assests: adapts well, educated, ADL independent, physically healthy Patient Liabilities: live alone, poor support system, substance abuse, visual impairment - Milieu Protocol Maintain good personal hygiene: daily Encourage regular showers, daily Remind patient to perform daily oral care, other Assist patient to perform ADL's (prn) Conduct patient checks and document Observation sheet: Q15 minutes Maintain personal safety: every shift Educate patient to report safety concerns to staff, every shift Monitor environment for contraband/sharps Medication safety: Monitor for expected outcome, potential side effects: daily, Assess barriers to learning: daily, every shift, Assess readiness for medication education: every shift
[2017-03-18 09:21] VITALS: BP 131/69; TEMP 96.6
--- NOTE | 2017-03-18 09:46 | PCM.PSYCH ---
Initial Psychiatric Evaluation - Initial Psychiatric Evaluation Type of Admission: Voluntary Legal Status: Capacity Chief Complaint (in patient's own words): i just was frustrated about my insurance Patient's Reaction to Hospitalization: agreed History of Present Illness and Precipitating Events: patient with previous psychiatric diagnosis of schizoaffective disorder, according to him the patient called on the day of evaluation his insurance and made a complaint to the claim department y about his outpatient provider. according to the insurance company the patient made a suicidal statement with a plan to cut his wrist or get hit by a car which obligated her to call the patient. The patient was anxious on the phone, and was feeling hopeless and helpless. The patient reported that he has been feeling overwhelmed as currently he has no social support patient reported depressed mood denied changes in sleep or appetite denied manic symptoms denied psychotic symptoms [ Current Medications: Active Medications Generic Name Dose Route Start Last Admin Trade Name Freq PRN Reason Stop Dose Admin Acetaminophen 650 mg 03/17/17 18:39 Tylenol 325mg Tab PO Q4 PRN Pain, moderate (4-7) Al Hydrox/Mg Hydrox/Simethicone 30 ml 03/17/17 18:39 Maalox Plus 30 Ml PO Q4 PRN Dyspepsia Clonazepam 1 mg 03/17/17 20:15 03/17/17 20:12 Klonopin PO 1 mg BID CARL Administration Diphenhydramine HCl 50 mg 03/17/17 18:39 Benadryl IM Q6 PRN Extrapyramidal S/S Unable PO Diphenhydramine HCl 50 mg 03/17/17 18:39 Benadryl PO Q6 PRN Extrapyramidal Symptoms Diphenhydramine HCl 50 mg 03/17/17 19:45 03/17/17 21:24 Benadryl PO 50 mg HS PRN Administration Sleep Haloperidol 5 mg 03/17/17 18:39 Haldol PO Q4 PRN Agitation Haloperidol Lactate 5 mg 03/17/17 18:39 Haldol IM Q4 PRN Agitation, Unable to Take PO Lorazepam 2 mg 03/17/17 18:39 Ativan IM Q4 PRN Anxiety/Agitation,Unable PO Lorazepam 2 mg 03/17/17 18:39 Ativan PO Q4 PRN Anxiety/Agitation Magnesium Hydroxide 30 ml 03/17/17 18:39 Milk Of Magnesia PO HS PRN Constipation Nicotine 1 patch 03/18/17 09:00 Nicoderm Cq TD DAILY CARL Sertraline HCl 100 mg 03/18/17 09:00 Zoloft PO DAILY CARL Past Psychiatric History - Past Psychiatric History Previous Treatment History: Inpatient Explanation of prior treatment: patient has unspecified number of inpatient hospitalizations , partially compliant with medications and follow up Pertinent Medical Hx (Current Medical&Sleep Prob, Allergies): Allergies Allergy/AdvReac Type Severity Reaction Status Date / Time bee pollen Allergy RASH Verified 03/17/17 12:38 haloperidol [From Haldol] Allergy RASH Verified 03/17/17 12:38 haloperidol lactate Allergy RASH Verified 03/17/17 12:38 [From Haldol] Penicillins Allergy RASH Verified 03/17/17 12:38 Nicotine 21 mg/24 hr [Nicoderm Cq] 1 patch TD DAILY #30 patch 11/17/16 Sertraline [Zoloft] 100 mg PO DAILY #15 tab 11/17/16 chlorproMAZINE [Thorazine] 100 mg PO HS #15 tab 11/17/16 clonazePAM [clonAZEPAM] 1 mg PO BID 03/17/17 Mental Status Examination - Personal Presentation Personal Presentation: Looks stated age - Affect Affect: Constricted - Motor Activity Motor Activity: Psychomotor Agitation - Reliability in Providing Information Reliability in Providing Information: Fair - Speech Speech: Organized - Mood Mood: Anxious - Formal Thought Process Additional comments: patient denied any current perceptual disturbances non ellicited - Obsessions/Compulsions Obsessions: No Compulsions: No - Cognitive Functions Orientation: Person, Place, Situation Sensorium: Alert Attention/Concentration: Attentive Abstract Thinking: [place] Estimate of Intelligence: Average Judgement: Imparied, as evidence by: Poor judgement Memory: Recent intact, as evidence by: Ability to recall events of the day - Risk Risk: Diminished functioning - Strength & Assets Inventory Strength & Assets Inventory: Life experience DSM 5 DX - DSM 5 DSM 5 Diagnosis: schizoaffective disorder bipolar type - Recommended/Plan of Treatment Treatment Recommendations and Plan of Treatment: pharmacotherapy and psychotherapy Discharge Plan and Discharge Criteria: patient mood stable
--- NOTE | 2017-03-18 10:58 | PCM.PYCHDC ---
Mental Status Examination - Mental Status Examination Orientation: Person, Place, Situation Memory: Intact Mood: Neutral Affect: Broad Attention: WNL Concentration: WNL Association: WNL Fund of Knowledge: WNL Formal Thought Process: No Impairment Description of patient's judgement and insight: poor insight and poor judgment Psychotic Thoughts and Behaviors: patient denied any psychotic symptoms non elicited Suicidal Ideation: No Current Homicidal Ideation?: No Discharge Summary - Discharge Note Reason for Hospitalization: patient with previous psychiatric diagnosis of schizoaffective disorder, according to him the patient called on the day of evaluation his insurance and made a complaint to the claim department y about his outpatient provider. according to the insurance company the patient made a suicidal statement with a plan to cut his wrist or get hit by a car which obligated her to call the patient. The patient was anxious on the phone, and was feeling hopeless and helpless. The patient reported that he has been feeling overwhelmed as currently he has no social support patient reported depressed mood denied changes in sleep or appetite denied manic symptoms denied psychotic symptoms Laboratory Data: Abnormal Lab Results 03/17/17 03/17/17 03/17/17 14:00 14:45 14:45 WBC 10.6 RBC 4.82 Hgb 15.4 Hct 44.5 MCV 92.2 MCH 31.9 H MCHC 34.6 RDW 13.2 Plt Count 258 MPV 7.7 Neut % (Auto) 65.5 Lymph % (Auto) 25.1 Wilkinson % (Auto) 6.9 Eos % (Auto) 1.9 Baso % (Auto) 0.6 Neut # 6.9 Lymph # 2.7 Wilkinson # 0.7 Eos # 0.2 Baso # 0.1 Sodium 144 Potassium 4.3 Chloride 109 H Carbon Dioxide 25 Anion Gap 14 BUN 10 Creatinine 0.9 Est GFR ( Amer) > 60 Est GFR (Non-Af Amer) > 60 Random Glucose 95 Calcium 9.8 Total Bilirubin 0.4 AST 22 ALT 29 Alkaline Phosphatase 54 Total Protein 7.9 Albumin 4.8 Globulin 3.1 Albumin/Globulin Ratio 1.5 Urine Opiates Screen Negative Urine Methadone Screen Negative Ur Barbiturates Screen Negative Ur Phencyclidine Scrn Positive H Ur Amphetamines Screen Negative U Benzodiazepines Scrn Negative U Oth Cocaine Metabols Negative U Cannabinoids Screen Positive H Alcohol, Quantitative < 10 Consultations:: List each consultation separately and include: 1. Reason for request. 2. Findings. 3. Follow-up Summary of Hospital Course include:: 1. Description of specific treatment plan utilized for patients during their course of treatmen. 2. Summarize the time- course for resolution of acute symptoms and/or regressed behaviors. 3. Describe issues identified and worked on during hospitalization. 4. Describe medication utilized. 5. Describe medical problems identified and treated. 6. Reassessment of suicide risk Summary of Hospital Course: patient with previous psychiatric diagnosis of schizoaffective disorder, according to him the patient called on the day of evaluation his insurance and made a complaint to the claim department y about his outpatient provider. according to the insurance company the patient made a suicidal statement with a plan to cut his wrist or get hit by a car which obligated her to call the patient. The patient was anxious on the phone, and was feeling hopeless and helpless. The patient reported that he has been feeling overwhelmed as currently he has no social support patient reported depressed mood denied changes in sleep or appetite denied manic symptoms denied psychotic symptoms [ - Diagnosis (1) Schizoaffective disorder Current Visit: Yes Status: Acute Priority: Medium - Final Diagnosis (DSM 5) Condition upon Discharge: STABLE Disposition: HOME/ ROUTINE Follow-up Treatment Plan: patient on admission was cooperative denied any current suicidal or homicidal ideations denied command hallucinations, at current mental status not danger to self or others patient was discharged with plan to follow up with outpatient clinic - Antipsychotic Medications Pt discharged on 2 or more routine antipsychotic medications: No
== END 2017-03-18 11:44 | disposition home or self-care (01) | DRG 885 ==
LOC: H.ER 12:36 → H.ERHOLD 15:19 → H.PSYCH 17:13
PROVIDERS: ADMIT Psychiatry & Neurology Psychiatry; ATTEND Psychiatry & Neurology Psychiatry
PROC: GZHZZZZ Group Psychotherapy (ICD-10-PCS; principal; 2017-03-17)
DX: F25.9 Schizoaffective disorder, unspecified (principal); R45.851 Suicidal ideations; Z88.0 Allergy status to penicillin; J45.909 Unspecified asthma, uncomplicated; F17.200 Nicotine dependence, unspecified, uncomplicated

== ENCOUNTER 2017-04-06 00:13 | Emergency (ER) | payer OTHER, MEDICAID ==
[2017-04-06 00:15] VITALS: BMI 31.1
[2017-04-06 00:39] VITALS: BP 133/77; PULSE 88; RESP 16; TEMP 97.6; O2SAT 96
--- NOTE | 2017-04-06 01:36 | ED PDOC ---
HPI: Nose Bleed Time Seen by Provider: 04/06/17 00:45 Chief Complaint (Nursing): ENT Problem Chief Complaint (Provider): nose bleed History Per: Patient History/Exam Limitations: no limitations Onset/Duration Of Symptoms: Hrs Current Symptoms Are (Timing): Gone Now Location Of Bleeding: Both Nares Additional Complaint(s): 26 y/o male history of migraine headaches presents with nose bleed, onset prior to arrival. Patient states he was traveling to work when bleeding began from both nares; lasted approximately 30 minutes then resolved with direct pressure. Denies headache, dizziness, nasal trauma, nasal congestion, cough, chest pain , shortness of breath, palpitations. Past Medical History Reviewed: Historical Data, Nursing Documentation, Vital Signs Vital Signs: Last Vital Signs Temp 97.6 F 04/06/17 00:37 Pulse 88 04/06/17 00:37 Resp 16 04/06/17 00:37 BP 133/77 04/06/17 00:37 Pulse Ox 96 04/06/17 00:37 - Medical History PMH: Anxiety, Arthritis, Asthma, Bipolar Disorder, Depression, Migraine, Post Traumatic Stress Disorder, Chronic Kidney Disease (alleged chronic kidney disease), Schizophrenia Denies: Diabetes, Hepatitis, HIV, HTN, Seizures, Sexually Transmitted Disease - Surgical History Surgical History: No Surg Hx - Family History Family History: States: Unknown Family Hx - Immunization History Hx Tetanus Toxoid Vaccination: Yes Hx Influenza Vaccination: Yes Hx Pneumococcal Vaccination: No - Home Medications Home Medications: Ambulatory Orders Medication Instructions Recorded chlorproMAZINE [Thorazine] 100 mg PO HS #15 tab 11/17/16 Ziprasidone [Geodon Cap] 60 mg PO BID 14 Days cap 04/05/17 chlorproMAZINE [Thorazine] 100 mg PO HS #14 tab 04/05/17 - Allergies Allergies/Adverse Reactions: Allergies Allergy/AdvReac Type Severity Reaction Status Date / Time amoxicillin Allergy RASH Verified 04/06/17 00:36 bee pollen Allergy RASH Verified 04/06/17 00:36 haloperidol [From Haldol] Allergy RASH Verified 04/06/17 00:36 haloperidol lactate Allergy RASH Verified 04/06/17 00:36 [From Haldol] Penicillins Allergy RASH Verified 04/06/17 00:36 Review of Systems ROS Statement: Except As Marked, All Systems Reviewed And Found Negative ENT: Positive for: Other (nosebleed) Physical Exam - Reviewed Nursing Documentation Reviewed: Yes Vital Signs Reviewed: Yes - Physical Exam Appears: Positive for: Well, Non-toxic, No Acute Distress Head Exam: Positive for: ATRAUMATIC, NORMAL INSPECTION, NORMOCEPHALIC Skin: Positive for: Normal Color Eye Exam: Positive for: Normal appearance ENT: Positive for: Normal ENT Inspection Cardiovascular/Chest: Positive for: Regular Rate, Rhythm Respiratory: Positive for: Normal Breath Sounds Extremity: Positive for: Normal ROM Neurologic/Psych: Positive for: Alert, Oriented - ECG O2 Sat by Pulse Oximetry: 96 - Progress ED Course And Treament: Patient educated on findings, discharged with instructions to follow up PMD/ENT Return to ED for worsening/concerning symptoms. Disposition - Clinical Impression Clinical Impression: Epistaxis - Patient ED Disposition Is Patient to be Admitted: No Counseled Patient/Family Regarding: Diagnosis, Need For Followup - Disposition Referrals: Ameena Santizo MD [Primary Care Provider] - Fabian Iraheta MD [Staff Provider] - Disposition: Routine/Home Disposition Time: 01:38 Condition: IMPROVED Instructions: Nosebleed (ED)
== END 2017-04-06 01:45 | disposition home or self-care (01) ==
LOC: H.ER 00:13
DX: R04.0 Epistaxis (principal); Z86.59 Personal history of other mental and behavioral disorders; J45.909 Unspecified asthma, uncomplicated; N18.9 Chronic kidney disease, unspecified; Z88.0 Allergy status to penicillin

== ENCOUNTER 2017-07-15 01:39 | Emergency (ER) | payer MEDICARE, MEDICAID ==
[2017-07-15 03:29] VITALS: BMI 31.7
[2017-07-15 03:32] VITALS: BP 122/80; PULSE 85; RESP 16; TEMP 98.2; O2SAT 98
--- NOTE | 2017-07-15 04:26 | ED PDOC ---
Lower Extremity Pain/Injury Time Seen by Provider: 07/15/17 03:35 Chief Complaint (Nursing): Lower Extremity Problem/Injury Chief Complaint (Provider): bilateral feet burning History Per: Patient History/Exam Limitations: no limitations Onset/Duration Of Symptoms: Days, Waxing/Waning Current Symptoms Are (Timing): Still Present Additional History Per: Patient Additional Complaint(s): 26 y/o male presents with burning to bilateral feet x days. Patient states he was prescribed Gabapentin for symptoms, which have been ongoing for years, but that it makes him loopy when he takes it. 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 Patient currently follows with a General Practitioner and Neurologist, for which he had nerve conduction studies done and is waiting for results. Denies fever, nausea/vomiting, numbness/weakness lower extremities , swelling to lower extremities, limitation of movement. Past Medical History Reviewed: Historical Data, Nursing Documentation, Vital Signs Vital Signs: Last Vital Signs Temp 98.2 F 07/15/17 03:29 Pulse 85 07/15/17 03:29 Resp 16 07/15/17 03:29 BP 122/80 07/15/17 03:29 Pulse Ox 98 07/15/17 03:29 - Medical History PMH: Anxiety, Arthritis, Asthma, Bipolar Disorder, Depression, Migraine, Post Traumatic Stress Disorder Denies: Diabetes, Hepatitis, HIV, HTN, Chronic Kidney Disease, Schizophrenia , Seizures, Sexually Transmitted Disease - Family History Family History: States: Unknown Family Hx - Immunization History Hx Tetanus Toxoid Vaccination: Yes Hx Influenza Vaccination: Yes Hx Pneumococcal Vaccination: No - Home Medications Home Medications: Ambulatory Orders Medication Instructions Recorded Divalproex [Depakote ER(ONCE 250 mg PO DAILY #14 ter 07/12/17 DAILY)] Divalproex [Depakote ER(ONCE 500 mg PO HS #14 ter 07/12/17 DAILY)] Gabapentin [Neurontin] 100 mg PO TID #45 cap 07/12/17 Mupirocin 2% Ointment [Bactroban 1 g TOP BID #1 tube 07/12/17 Ointment] busPIRone [Buspar] 5 mg PO TID #45 tab 07/12/17 chlorproMAZINE [Thorazine] 100 mg PO HS #14 tab 07/12/17 - Allergies Allergies/Adverse Reactions: Allergies Allergy/AdvReac Type Severity Reaction Status Date / Time amoxicillin Allergy Severe ANAPHYLAXIS Verified 07/15/17 03:28 bee pollen Allergy Severe ANAPHYLAXIS Verified 07/15/17 03:28 Penicillins Allergy Severe ANAPHYLAXIS Verified 07/15/17 03:28 haloperidol [From Haldol] Allergy Mild RASH Verified 07/15/17 03:28 haloperidol lactate Allergy Mild RASH Verified 07/15/17 03:28 [From Haldol] Review of Systems ROS Statement: Except As Marked, All Systems Reviewed And Found Negative Musculoskeletal: Positive for: Foot Pain Physical Exam - Reviewed Nursing Documentation Reviewed: Yes Vital Signs Reviewed: Yes - Physical Exam Appears: Positive for: Well, Non-toxic, No Acute Distress Pulses-Dorsalis Pedis (L): 2+ Pulses-Dorsalis Pedis (R): 2+ Pulses-Radial (L): 2+ Pulses-Radial (R): 2+ Extremity: Positive for: Normal ROM, Capillary Refill, Other (small clear fluid- filled blisters plantar bilateral heels. No skin break/crusting/scaling noted. No swelling, erythema, temp change noted bilaterally). Negative for: Pedal Edema, Calf Tenderness, Deformity Neurologic/Psych: Positive for: Alert, Oriented. Negative for: Motor/Sensory Deficits - ECG O2 Sat by Pulse Oximetry: 98 - Progress ED Course And Treament: Bacitracin, bandages applied to blisters Patient educated on proper foot hygiene/care. Advised to continue current prescribed medications. Follow up POdiatry, Neurology. Return precautions given. Disposition - Clinical Impression Clinical Impression: Blister of foot, Burning sensation of feet - Patient ED Disposition Is Patient to be Admitted: No Counseled Patient/Family Regarding: Diagnosis, Need For Followup - Disposition Referrals: Podiatry Clinic [Outside] Disposition: Routine/Home Disposition Time: 05:06 Condition: IMPROVED Instructions: Blisters
== END 2017-07-15 05:15 | disposition home or self-care (01) ==
LOC: H.ER 01:39
DX: S90.829A Blister (nonthermal), unspecified foot, initial encounter (principal); Y92.89 Other specified places as the place of occurrence of the external cause
CPT/HCPCS: 96372; 99284; J1885

== ENCOUNTER 2017-09-04 00:54 | Emergency (ER) | payer MEDICARE, MEDICAID ==
[2017-09-04 00:55] VITALS: BMI 31.7
[2017-09-04 01:13] VITALS: BP 123/72; PULSE 106; RESP 18; TEMP 98.6; O2SAT 96
[2017-09-04] MEDS ORDERED: Apap-Butalbital-Caffeine 325-50-40mg Tab PO STA (02:23)
[2017-09-04] MEDS ORDERED: Apap-Butalbital-Caffeine 325-50-40mg Tab ONE (02:34)
--- NOTE | 2017-09-04 04:53 | ED PDOC ---
HPI: Headache Time Seen by Provider: 09/04/17 01:33 Chief Complaint (Nursing): Headache Chief Complaint (Provider): Headache History Per: Patient History/Exam Limitations: no limitations Onset/Duration Of Symptoms: Days (x 7) Current Symptoms Are (Timing): Still Present Additional Complaint(s): 27 year old male with history of migraine headaches and is also a smoker, presents to the ED complaining of migraine headache. Patient states he used to take Fioricet and Ibuprofen but he ran out of them two weeks ago. Patient also reports of intermittent nose bleed and sinus congestion. He denies any fever, upper respiratory infection symptoms, sore throat, dizziness, N/V, trauma. Has no other complaints. Past Medical History Reviewed: Historical Data, Nursing Documentation, Vital Signs Vital Signs: Last Vital Signs Temp 98.6 F 09/04/17 01:11 Pulse 106 H 09/04/17 01:11 Resp 18 09/04/17 01:11 BP 123/72 09/04/17 01:11 Pulse Ox 96 09/04/17 01:11 - Medical History PMH: Anxiety, Arthritis, Asthma, Bipolar Disorder, Depression, Migraine, Post Traumatic Stress Disorder Denies: Diabetes, Hepatitis, HIV, HTN, Chronic Kidney Disease, Schizophrenia , Seizures, Sexually Transmitted Disease - Surgical History Surgical History: No Surg Hx - Family History Family History: States: Unknown Family Hx - Social History Current smoker - smoking cessation education provided: Yes (cigarettes) Alcohol: None Drugs: Denies - Immunization History Hx Tetanus Toxoid Vaccination: Yes Hx Influenza Vaccination: Yes Hx Pneumococcal Vaccination: No - Home Medications Home Medications: Ambulatory Orders Medication Instructions Recorded Gabapentin [Neurontin] 300 mg PO DAILY #5 cap 07/17/17 Meclizine [Meclizine*] 25 mg PO Q6 PRN #20 tab 07/17/17 Ranitidine HCl [Zantac] 150 mg PO BID #20 tablet 07/17/17 Acetaminophen/Butalbital/Caf 1 tab PO TID PRN #20 tab 09/04/17 [Fioricet] Doxycycline Hyclate 100 mg PO BID #20 capsule 09/04/17 Fluticasone Propionate [Flonase] 2 spr CHAPITO DAILY #1 bottle 09/04/17 Ibuprofen [Motrin Tab] 600 mg PO QID PRN #20 tab 09/04/17 - Allergies Allergies/Adverse Reactions: Allergies Allergy/AdvReac Type Severity Reaction Status Date / Time amoxicillin Allergy Severe ANAPHYLAXIS Verified 07/17/17 08:38 bee pollen Allergy Severe ANAPHYLAXIS Verified 07/17/17 08:38 Penicillins Allergy Severe ANAPHYLAXIS Verified 07/17/17 08:38 haloperidol [From Haldol] Allergy Mild RASH Verified 07/17/17 08:38 haloperidol lactate Allergy Mild RASH Verified 07/17/17 08:38 [From Haldol] Review of Systems ROS Statement: Except As Marked, All Systems Reviewed And Found Negative Constitutional: Negative for: Fever Respiratory: Negative for: Cough, Shortness of Breath Physical Exam - Physical Exam Comments: GENERAL APPEARANCE: Patient is awake, alert, oriented x 3, in mild painful distress. SKIN: Warm, dry; (-) cyanosis; (-) rash. HEAD: (-) scalp swelling or tenderness, (-) temporal artery tenderness. EYES: (-) conjunctival pallor, (-) scleral icterus. ENMT: (+) mild maxillary sinus tenderness; mucous membranes moist, (+) nasal discharge to the right nare, (+) mild edema to bilateral nasal turbinates. NECK: (-) tenderness, (-) stiffness, (-) meningismus, (-) lymphadenopathy. CHEST AND RESPIRATORY: (-) rales, (-) rhonchi, (-) wheezes; breath sounds equal bilaterally. HEART AND CARDIOVASCULAR: (-) irregularity; (-) murmur, (-) gallop. ABDOMEN AND GI: Soft; (-) tenderness. EXTREMITIES: (-) deformity. NEURO AND PSYCH: Mental status as above. 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 Strength symmetric. - ECG O2 Sat by Pulse Oximetry: 96 (RA) Pulse Ox Interpretation: Normal Medical Decision Making Medical Decision Making: Impression: migraine headache, sinusitis Initial Plan: --Fioricet --Motrin 600 mg PO --Zofran 4 mg PO On re-evaluation, patient reports improvement of symptoms, denies any headache, dizziness, N/V. On exam, patient remains AAOx3, in no acute distress, repeat neuro exam shows no focal findings. Diagnosis of migraine headache and sinusitis d/w the patient. Based on history and exam, plan will be for outpatient follow upn. Patient instructed to follow-up with pmd in 1-2 days without fail. Advised to take medication as prescribed. Return to the emergency room at any time for any new or worsening symptoms. Patient states he fully agrees with and understands discharge instructions. States that he agrees with the plan and disposition. Verbalized and repeated discharge instructions and plan. I have given the patient opportunity to ask any additional questions. Scribe Attestation: Documented by Suzanne Ordaz, acting as a scribe for Rhoda Gonzalez PA. Provider Scribe Attestation: All medical record entries made by the Scribe were at my direction and personally dictated by me. I have reviewed the chart and agree that the record accurately reflects my personal performance of the history, physical exam, medical decision making, and the department course for this patient. I have also personally directed, reviewed, and agree with the discharge instructions and disposition. Disposition - Clinical Impression Clinical Impression: Migraine, Sinusitis - Patient ED Disposition Is Patient to be Admitted: No Counseled Patient/Family Regarding: Diagnosis, Need For Followup, Rx Given - Disposition Disposition: Routine/Home Disposition Time: 02:45 Condition: IMPROVED Additional Instructions: Thank you for letting us take care of you today. You were treated for migraine headache, sinusitis. The emergency medical care you received today was directed at your acute symptoms. If you were prescribed any medication, please fill it and take as directed. It may take several days for your symptoms to resolve. Return to the Emergency Department if your symptoms worsen, do not improve, or if you have any other problems. Please contact your doctor in 2 days for re-evaluation and follow up. Bring any paperwork you were given at discharge with you along with any medications you are taking to your follow up visit. Our treatment cannot replace ongoing medical care by a primary care provider (PCP) outside of the emergency department. Thank you for allowing the [facility] team to be part of your care today. Prescriptions: Acetaminophen/Butalbital/Caf [Fioricet] 1 tab PO TID PRN #20 tab PRN Reason: Other Doxycycline Hyclate 100 mg PO BID #20 capsule Fluticasone Propionate [Flonase] 2 spr CHAPITO DAILY #1 bottle Ibuprofen [Motrin Tab] 600 mg PO QID PRN #20 tab PRN Reason: Pain, Moderate (4-7) Instructions: Sinusitis in Adults, Migraine Headache (DC) Forms: [employer] (Latvian) - PA / PERINATAL TECH / Resident Statement MD/DO has reviewed & agrees with the documentation as recorded.
== END 2017-09-04 03:51 | disposition home or self-care (01) ==
LOC: H.ER 00:54
DX: G43.909 Migraine, unspecified, not intractable, without status migrainosus (principal); J32.9 Chronic sinusitis, unspecified; F31.9 Bipolar disorder, unspecified; F43.10 Post-traumatic stress disorder, unspecified; Z88.0 Allergy status to penicillin; R04.0 Epistaxis

== ENCOUNTER 2017-09-12 05:39 | Emergency (ER) | payer MEDICARE, MEDICAID ==
[2017-09-12 05:39] VITALS: BMI 31.7
[2017-09-12 05:59] VITALS: BP 119/80; PULSE 78; RESP 18; TEMP 97.4; O2SAT 100
[2017-09-12 06:47] LABS: BASO # 0.1 K/uL (0.0-0.2); BASO % 0.8 % (0.0-2.0); EOS # 0.2 K/uL (0.0-0.7); EOS % 2.5 % (0.0-4.0); HEMOGLOBIN 14.9 g/dL (12.0-18.0); LYMPH # 2.6 K/uL (1.0-4.3); MEAN CELL VOLUME 94.5 fl (80.0-94.0); MEAN CORPUSCULAR HEMOGLOBIN 32.3 pg (27.0-31.0); MEAN CORPUSCULAR HGB CONC 34.2 g/dL (33.0-37.0); MEAN PLATELET VOLUME 7.7 fl (7.2-11.7); MONO # 0.7 K/uL (0.0-0.8); MONO % 7.7 % (0.0-10.0); NEUT # 5.7 K/uL (1.8-7.0); NRBC % 0.1 % (0.0-0.0); RBC 4.61 Mil/uL (4.40-5.90); WHITE BLOOD COUNT 9.4 K/uL (4.8-10.8)
--- NOTE | 2017-09-12 06:48 | ED PDOC ---
HPI: Chest Pain Time Seen by Provider: 09/12/17 06:07 Chief Complaint (Nursing): Chest Pain Chief Complaint (Provider): Chest Pain History Per: Patient History/Exam Limitations: no limitations Current Symptoms Are (Timing): Intermittent Episodes Additional Complaint(s): 27-year-old male, with a hx of asthma, presents to ED complaining of non- radiating, non-extertional, anterior chest pain and shortness of breath since 02 :00. Patient was sleeping in bed when it started. States pain is intermittent. Denies any leg swelling, cough, fever, dizziness. PMD: No Provider Past Medical History Reviewed: Historical Data, Nursing Documentation, Vital Signs Vital Signs: Last Vital Signs Temp 97.4 F L 09/12/17 05:55 Pulse 78 09/12/17 05:55 Resp 18 09/12/17 05:55 BP 119/80 09/12/17 05:55 Pulse Ox 100 09/13/17 17:57 - Medical History PMH: Anxiety, Arthritis, Asthma, Bipolar Disorder, Depression, Migraine, Post Traumatic Stress Disorder Denies: Diabetes, Hepatitis, HIV, HTN, Chronic Kidney Disease, Schizophrenia , Seizures, Sexually Transmitted Disease - Surgical History Surgical History: No Surg Hx - Family History Family History: States: Unknown Family Hx - Immunization History Hx Tetanus Toxoid Vaccination: Yes Hx Influenza Vaccination: Yes Hx Pneumococcal Vaccination: No - Home Medications Home Medications: Ambulatory Orders Medication Instructions Recorded Gabapentin [Neurontin] 300 mg PO DAILY #5 cap 07/17/17 Meclizine [Meclizine*] 25 mg PO Q6 PRN #20 tab 07/17/17 Ranitidine HCl [Zantac] 150 mg PO BID #20 tablet 07/17/17 Acetaminophen/Butalbital/Caf 1 tab PO TID PRN #20 tab 09/04/17 [Fioricet] Doxycycline Hyclate 100 mg PO BID #20 capsule 09/04/17 Fluticasone Propionate [Flonase] 2 spr CHAPITO DAILY #1 bottle 09/04/17 Ibuprofen [Motrin Tab] 600 mg PO QID PRN #20 tab 09/04/17 - Allergies Allergies/Adverse Reactions: Allergies Allergy/AdvReac Type Severity Reaction Status Date / Time amoxicillin Allergy Severe ANAPHYLAXIS Verified 09/12/17 05:54 bee pollen Allergy Severe ANAPHYLAXIS Verified 04/22/18 05:54 Penicillins Allergy Severe ANAPHYLAXIS Verified 09/12/17 05:54 haloperidol [From Haldol] Allergy Mild RASH Verified 09/12/17 05:54 haloperidol lactate Allergy Mild RASH Verified 09/12/17 05:54 [From Haldol] DARRIN Risk Score for UA/NSTEMI - DARRIN Risk Score Age > 64: NO 3 or more CAD Risk Factors: NO Known CAD (Stenosis greater than 50%): NO Aspirin use in past 7 days: NO Severe Angina: NO EKG ST changes greater than 0.5mm: NO Positive Cardiac Marker: NO DARRIN Score: 0 Risk %: 5% Wells Criteria for PE - Wells Criteria for Pulmonary Embolism Clinical Signs and Symptoms of DVT: No P.E is #1 Diagnosis, or Equally Likely: No Heart Rate >100: No Immobilization at least 3 days;Surgery previous 4 weeks: No Previous, objectively diagnosed PE or DVT: No Hemoptysis: No Malignancy w/treatment within 6 months, or palliative: No Total Score: 0 Review of Systems ROS Statement: Except As Marked, All Systems Reviewed And Found Negative Constitutional: Negative for: Fever Cardiovascular: Positive for: Chest Pain Respiratory: Positive for: Shortness of Breath. Negative for: Cough Musculoskeletal: Negative for: Other (leg swelling) Neurological: Negative for: Dizziness Physical Exam - Reviewed Nursing Documentation Reviewed: Yes Vital Signs Reviewed: Yes - Physical Exam Appears: Positive for: Non-toxic Head Exam: Positive for: ATRAUMATIC, NORMAL INSPECTION, NORMOCEPHALIC Skin: Positive for: Normal Color, Warm, Dry Eye Exam: Positive for: Normal appearance, EOMI, PERRL ENT: Positive for: Normal ENT Inspection Neck: Positive for: Normal Cardiovascular/Chest: Positive for: Regular Rate, Rhythm Respiratory: Positive for: Normal Breath Sounds. Negative for: Respiratory Distress Gastrointestinal/Abdominal: Positive for: Normal Exam Back: Positive for: Normal Inspection Extremity: Positive for: Normal ROM. Negative for: Deformity Neurologic/Psych: Positive for: Alert, Oriented (x 3). Negative for: Motor/ Sensory Deficits - Laboratory Results Result Diagrams: 09/12/17 06:44 09/12/17 06:44 - ECG O2 Sat by Pulse Oximetry: 100 (RA) Pulse Ox Interpretation: Normal Medical Decision Making Medical Decision Making: Time: 06:22 Impression(s): Chest Pain Differentials include, but not limited to: ACS, Pulmonary Embolism, Less Likely Asthma Exacerabation Plan: - EKG - BMP - Troponin I - CBC - CXR -PERC negative for PE Scribe Attestation: Documented by Arben Alfredo, acting as a scribe for Vero Cash MD. Provider Scribe Attestation: All medical record entries made by the Scribe were at my direction and personally dictated by me. I have reviewed the chart and agree that the record accurately reflects my personal performance of the history, physical exam, medical decision making, and the department course for this patient. I have also personally directed, reviewed, and agree with the discharge instructions and disposition. Disposition - Clinical Impression Clinical Impression: Chest pain - Patient ED Disposition Is Patient to be Admitted: Transfer of Care Counseled Patient/Family Regarding: Studies Performed, Diagnosis - Disposition Disposition: Transfer of Care Disposition Time: 07:00 Condition: STABLE Patient Signed Over To: Clementina Guevara
[2017-09-12 07:06] LABS: BLOOD UREA NITROGEN 16 mg/dl (9-20); CALCIUM 9.4 mg/dL (8.4-10.2); GFR AFRICAN-AMERICAN > 60; GFR NON-AFRICAN AMERICAN > 60
--- NOTE | 2017-09-12 07:54 | ED PDOC ---
- Laboratory Results Result Diagrams: 09/12/17 06:44 09/12/17 06:44 - ECG O2 Sat by Pulse Oximetry: 100 (RA) Pulse Ox Interpretation: Normal Medical Decision Making Medical Decision Making: Time: 0700 Patient signed out by me by Dr. Cash pending labs and reevaluation. Patient has eloped from [facility]. Scribe Attestation: Documented by Lorenza Schmitz, acting as a scribe for Clementina Guevara MD Provider Scribe Attestation: All medical record entries made by the Scribe were at my direction and personally dictated by me. I have reviewed the chart and agree that the record accurately reflects my personal performance of the history, physical exam, medical decision making, and the department course for this patient. I have also personally directed, reviewed, and agree with the discharge instructions and disposition. Disposition - Disposition Forms: [employer] (Telugu)
--- NOTE | 2017-09-12 09:25 | RAD ---
HISTORY: chest pain dyspnea COMPARISON: Chest radiograph dated 11/14/2016. TECHNIQUE: Chest PA and lateral FINDINGS: LUNGS: No active pulmonary disease. PLEURA: No significant pleural effusion identified. No pneumothorax apparent. CARDIOVASCULAR: Normal. OSSEOUS STRUCTURES: No significant abnormalities. VISUALIZED UPPER ABDOMEN: Normal. OTHER FINDINGS: None. IMPRESSION: No active disease.
--- NOTE | 2017-09-12 10:39 | CARD ---
APPROVED REPORT EKG Measurement Heart [id number] <Conclusion> Normal sinus rhythm Normal ECG
== END 2017-09-12 07:53 | disposition left against medical advice (07) ==
LOC: H.ER 05:39
DX: R07.89 Other chest pain (principal); F31.9 Bipolar disorder, unspecified; F43.10 Post-traumatic stress disorder, unspecified; Z88.0 Allergy status to penicillin; J45.909 Unspecified asthma, uncomplicated

== ENCOUNTER 2017-09-26 15:12 | Emergency (ER) | payer MEDICARE, MEDICAID ==
[2017-09-26 15:12] VITALS: BMI 31.7
[2017-09-26 15:20] VITALS: BP 126/74; RESP 18; TEMP 98.4; O2SAT 97
--- NOTE | 2017-09-26 16:15 | ED PDOC ---
HPI: Chest Pain Time Seen by Provider: 09/26/17 15:15 Chief Complaint (Nursing): Chest Pain Chief Complaint (Provider): Chest Pain History Per: Patient History/Exam Limitations: no limitations Onset/Duration Of Symptoms: Days (x 1) Quality: Sharp (left chest wall) Additional Complaint(s): 27 years old male with history of asthma, depression and PTSD presents to the ED complaining of a constant left lower chest pain onset yesterday at 6 pm. Patient reports sharp pain suddenly started yesterday as he was laying down. He states pain worsens with deep breathing and admits experiencing shortness of breath and wheezing for which he has taken Albuterol. Patient reports experiencing intermittent bilateral feet swelling 3 weeks ago, however, denies having it now. 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 Patient denies any cough, fever, midline chest pain or taking marijuana prior to onset. PMD: non provided Against Medical Advice - AMA Patient Left Against Medical Advice: The patient declines admission to the hospital and wishes to leave the Emergency Department. This action is against my medical advice. This decision was made with informed refusal. The patient was told that admission to the hospital is necessary. Explanation of the reasons why were discussed. The risks of leaving were explained to the patient and include, but are not limited to, worsening of known or currently unknown conditions, permanent disability and from undiagnosed or untreated conditions. The patient has the capacity to make this informed decision and understands my explanation of the current medical problem and risks of leaving. The patient voluntarily accepts these risks and signed an AMA form documenting our conversation. The patient was given the opportunity to ask questions and reconsider. The patient was encouraged to return to the Emergency Department at any time for further care. Past Medical History Reviewed: Historical Data, Nursing Documentation, Vital Signs Vital Signs: Last Vital Signs Temp 98.4 F 09/26/17 15:16 Pulse 77 09/26/17 16:40 Resp 18 09/26/17 15:16 BP 126/74 09/26/17 15:16 Pulse Ox 97 09/26/17 16:40 - Medical History PMH: Anxiety, Arthritis, Asthma, Bipolar Disorder, Depression, Migraine, Post Traumatic Stress Disorder Denies: Diabetes, Hepatitis, HIV, HTN, Chronic Kidney Disease, Schizophrenia , Seizures, Sexually Transmitted Disease - Family History Family History: States: Unknown Family Hx - Social History Current smoker - smoking cessation education provided: Yes (Cigarettes) Alcohol: None Drugs: Cannabis - Immunization History Hx Tetanus Toxoid Vaccination: Yes Hx Influenza Vaccination: Yes Hx Pneumococcal Vaccination: No - Home Medications Home Medications: Ambulatory Orders Medication Instructions Recorded Gabapentin [Neurontin] 300 mg PO DAILY #5 cap 07/17/17 Meclizine [Meclizine*] 25 mg PO Q6 PRN #20 tab 07/17/17 Ranitidine HCl [Zantac] 150 mg PO BID #20 tablet 07/17/17 Acetaminophen/Butalbital/Caf 1 tab PO TID PRN #20 tab 09/04/17 [Fioricet] Doxycycline Hyclate 100 mg PO BID #20 capsule 09/04/17 Fluticasone Propionate [Flonase] 2 spr CHAPITO DAILY #1 bottle 09/04/17 Ibuprofen [Motrin Tab] 600 mg PO QID PRN #20 tab 09/04/17 - Allergies Allergies/Adverse Reactions: Allergies Allergy/AdvReac Type Severity Reaction Status Date / Time amoxicillin Allergy Severe ANAPHYLAXIS Verified 09/26/17 15:16 bee pollen Allergy Severe ANAPHYLAXIS Verified 09/26/17 15:16 Penicillins Allergy Severe ANAPHYLAXIS Verified 09/26/17 15:16 haloperidol [From Haldol] Allergy Mild RASH Verified 09/26/17 15:16 haloperidol lactate Allergy Mild RASH Verified 09/26/17 15:16 [From Haldol] Review of Systems ROS Statement: Except As Marked, All Systems Reviewed And Found Negative Constitutional: Negative for: Fever Cardiovascular: Positive for: Chest Pain (Left lower chest wall). Negative for : Other (Midline chest pain) Respiratory: Positive for: Shortness of Breath, Wheezing. Negative for: Cough Physical Exam - Reviewed Nursing Documentation Reviewed: Yes Vital Signs Reviewed: Yes - Physical Exam Appears: Positive for: Non-toxic, No Acute Distress Head Exam: Positive for: ATRAUMATIC, NORMOCEPHALIC Skin: Positive for: Warm, Dry (multiple tattoos throughout body) Eye Exam: Positive for: EOMI, PERRL ENT: Negative for: Pharyngeal Erythema, Tonsillar Exudate Neck: Positive for: Painless ROM, Supple Cardiovascular/Chest: Positive for: Regular Rate, Rhythm. Negative for: Chest Non Tender (Pain of anterior left chest wall on palpitation. ), Murmur Respiratory: Positive for: Decreased Breath Sounds, Respiratory Distress (mild) , Other (Poor inspiratory effort. Hypoxic at 94%. Crepitus and step off.) Gastrointestinal/Abdominal: Positive for: Soft. Negative for: Tenderness Back: Positive for: Normal Inspection. Negative for: Decreased ROM Extremity: Positive for: Normal ROM. Negative for: Pedal Edema Lymphatic: Negative for: Adenopathy Neurologic/Psych: Positive for: Alert, Oriented - Laboratory Results Result Diagrams: 09/26/17 16:58 09/26/17 16:58 - ECG ECG Rhythm: Positive for: Normal QRS, Normal ST Segment. Negative for: ST/T Changes Rate: 77 O2 Sat by Pulse Oximetry: 97 (RA) Pulse Ox Interpretation: Normal Medical Decision Making Medical Decision Making: Time: 1607 Initial Impression: Chest wall pain, hypoxia. Differential includes but not limited to pneumothorax, rib fracture, PE and restrain. Initial Plan: --EKG --BTN --CMP --Magnesium --Phosphorous --Troponin --CBC --D Dimer --PTT --Prothrombin Time --Left Ribs and PA Chest 5p Pt reports he wants to leave. Reports he has an emergency and must leave. CASH pt risk/benefits and signed AMA. Scribe Attestation: Documented by Suzanne Ordaz, acting as a scribe for Mare Toro MD. Provider Scribe Attestation: All medical record entries made by the Scribe were at my direction and personally dictated by me. I have reviewed the chart and agree that the record accurately reflects my personal performance of the history, physical exam, medical decision making, and the department course for this patient. I have also personally directed, reviewed, and agree with the discharge instructions and disposition. Disposition - Clinical Impression Clinical Impression: Chest pain - Disposition Disposition: Against Medical Advice Disposition Time: 17:00 Condition: UNKNOWN Forms: [employer] (Czech)
[2017-09-26 16:32] VITALS: PULSE 77
--- NOTE | 2017-09-26 16:57 | RAD ---
PROCEDURE: Radiographs of the Chest and Left Ribs. HISTORY: chest pain COMPARISON: Chest radiograph dated 09/12/2017.. TECHNIQUE: Frontal radiograph of the chest and multiple oblique radiographs of the left ribs were obtained. FINDINGS: LEFT RIBS: No fracture or focal lesion visualized. LUNGS: Clear. PLEURA: No pneumothorax or pleural fluid. CARDIOVASCULAR: Normal sized heart. No pulmonary vascular congestion. OTHER FINDINGS: None. IMPRESSION: Unremarkable radiographs of the chest and left ribs. No left rib fracture.
[2017-09-26 17:06] LABS: BASO # 0.1 K/uL (0.0-0.2); BASO % 0.9 % (0.0-2.0); EOS # 0.2 K/uL (0.0-0.7); EOS % 2.3 % (0.0-4.0); HEMOGLOBIN 15.2 g/dL (12.0-18.0); LYMPH # 2.7 K/uL (1.0-4.3); LYMPH % 26.6 % (20.0-40.0); MEAN CELL VOLUME 94.8 fl (80.0-94.0); MEAN CORPUSCULAR HEMOGLOBIN 32.2 pg (27.0-31.0); MEAN PLATELET VOLUME 7.6 fl (7.2-11.7); MONO # 0.9 K/uL (0.0-0.8); MONO % 8.2 % (0.0-10.0); NEUT # 6.4 K/uL (1.8-7.0); RBC 4.73 Mil/uL (4.40-5.90); RED CELL DISTRIBUTION WIDTH 14.3 % (11.5-14.5); WHITE BLOOD COUNT 10.3 K/uL (4.8-10.8)
[2017-09-26 17:12] LABS: ALB/GLOB RATIO 1.3 (1.0-2.1); ALBUMIN 4.4 g/dL (3.5-5.0); CALCIUM 9.7 mg/dL (8.4-10.2); GFR AFRICAN-AMERICAN > 60; GFR NON-AFRICAN AMERICAN > 60; PROTHROMBIN TIME 10.7 Seconds (9.8-13.1)
[2017-09-26 17:13] LABS: PARTIAL THROMBOPLASTIN TIME 30.9 Seconds (25.6-37.1)
[2017-09-26 17:31] LABS: ALT/SGPT 49 U/L (21-72); AST/SGOT 42 U/L (17-59); BLOOD UREA NITROGEN 14 mg/dl (9-20)
== END 2017-09-26 17:13 | disposition left against medical advice (07) ==
LOC: H.ER 15:12
DX: R07.89 Other chest pain (principal)

== ENCOUNTER 2017-10-16 06:42 | Emergency (ER) | payer MEDICARE, MEDICAID ==
[2017-10-16 06:42] VITALS: BMI 31.7
[2017-10-16 06:58] VITALS: RESP 17; O2SAT 98
[2017-10-16] MEDS ORDERED: Sodium Chloride 0.9% 1,000 ML IV STA (07:06)
--- NOTE | 2017-10-16 07:08 | ED PDOC ---
HPI: General Adult Time Seen by Provider: 10/16/17 07:03 Chief Complaint (Nursing): Weakness/Neurological Deficit History Per: Patient Onset/Duration Of Symptoms: Days (2) Current Symptoms Are (Timing): Still Present Additional Complaint(s): Nauseous with decreased PO intake. Feels like he is dehydrated. No vomiting or diarrhea. No fever. Denies SI/HI Past Medical History Vital Signs: Last Vital Signs Temp 98 F 10/16/17 10:18 Pulse 74 10/16/17 10:18 Resp 17 10/16/17 06:50 BP 120/89 10/16/17 10:18 Pulse Ox 98 10/16/17 10:18 - Medical History PMH: Anxiety, Arthritis, Asthma, Bipolar Disorder, Depression, Migraine, Post Traumatic Stress Disorder Denies: Diabetes, Hepatitis, HIV, HTN, Chronic Kidney Disease, Schizophrenia , Seizures, Sexually Transmitted Disease - Family History Family History: States: Unknown Family Hx - Immunization History Hx Tetanus Toxoid Vaccination: Yes Hx Influenza Vaccination: Yes Hx Pneumococcal Vaccination: No - Home Medications Home Medications: Ambulatory Orders Medication Instructions Recorded Gabapentin [Neurontin] 300 mg PO DAILY #5 cap 07/17/17 Meclizine [Meclizine*] 25 mg PO Q6 PRN #20 tab 07/17/17 Ranitidine HCl [Zantac] 150 mg PO BID #20 tablet 07/17/17 Acetaminophen/Butalbital/Caf 1 tab PO TID PRN #20 tab 09/04/17 [Fioricet] Doxycycline Hyclate 100 mg PO BID #20 capsule 09/04/17 Fluticasone Propionate [Flonase] 2 spr CHAPITO DAILY #1 bottle 09/04/17 Ibuprofen [Motrin Tab] 600 mg PO QID PRN #20 tab 09/04/17 - Allergies Allergies/Adverse Reactions: Allergies Allergy/AdvReac Type Severity Reaction Status Date / Time amoxicillin Allergy Severe ANAPHYLAXIS Verified 09/26/17 15:16 bee pollen Allergy Severe ANAPHYLAXIS Verified 09/26/17 15:16 Penicillins Allergy Severe ANAPHYLAXIS Verified 09/26/17 15:16 haloperidol [From Haldol] Allergy Mild RASH Verified 09/26/17 15:16 haloperidol lactate Allergy Mild RASH Verified 09/26/17 15:16 [From Haldol] Review of Systems ROS Statement: Except As Marked, All Systems Reviewed And Found Negative Gastrointestinal: Positive for: Nausea. Negative for: Vomiting, Abdominal Pain , Diarrhea Physical Exam - Reviewed Nursing Documentation Reviewed: Yes Vital Signs Reviewed: Yes - Physical Exam Appears: Positive for: Non-toxic, No Acute Distress Head Exam: Positive for: ATRAUMATIC, NORMAL INSPECTION, NORMOCEPHALIC Skin: Positive for: Normal Color, Warm, DRY Eye Exam: Positive for: EOMI, Normal appearance, PERRL Neck: Positive for: Normal, Painless ROM Cardiovascular/Chest: Positive for: Regular Rate, Rhythm Respiratory: Positive for: CNT, Normal Breath Sounds Gastrointestinal/Abdominal: Positive for: Normal Exam, Soft Back: Positive for: Normal Inspection Extremity: Positive for: Normal ROM Neurologic/Psych: Positive for: Alert, Oriented - Laboratory Results Result Diagrams: 10/16/17 07:10 10/16/17 07:10 - ECG O2 Sat by Pulse Oximetry: 98 Disposition - Clinical Impression Clinical Impression: Gastritis - Patient ED Disposition Is Patient to be Admitted: No - Disposition Disposition: Eloped Disposition Time: 10:00 Condition: FAIR Instructions: Gastritis Forms: [employer] (Welsh)
[2017-10-16 07:24] LABS: BASO # 0.1 K/uL (0.0-0.2); BASO % 0.6 % (0.0-2.0); EOS # 0.3 K/uL (0.0-0.7); EOS % 2.6 % (0.0-4.0); HEMOGLOBIN 16.2 g/dL (12.0-18.0); LYMPH # 3.1 K/uL (1.0-4.3); MEAN CELL VOLUME 95.6 fl (80.0-94.0); MEAN CORPUSCULAR HEMOGLOBIN 32.4 pg (27.0-31.0); MEAN CORPUSCULAR HGB CONC 33.9 g/dL (33.0-37.0); MEAN PLATELET VOLUME 7.9 fl (7.2-11.7); MONO # 1.1 K/uL (0.0-0.8); MONO % 8.7 % (0.0-10.0); NEUT # 8.2 K/uL (1.8-7.0); NEUT % 64.1 % (50.0-75.0); NRBC % 0.1 % (0.0-0.0); RBC 5.02 Mil/uL (4.40-5.90); RED CELL DISTRIBUTION WIDTH 13.8 % (11.5-14.5); WHITE BLOOD COUNT 12.8 K/uL (4.8-10.8)
[2017-10-16 07:50] LABS: ALB/GLOB RATIO 1.3 (1.0-2.1); ALBUMIN 4.3 g/dL (3.5-5.0); ALT/SGPT 41 U/L (21-72); AST/SGOT 31 U/L (17-59); BLOOD UREA NITROGEN 16 mg/dl (9-20); CALCIUM 9.7 mg/dL (8.4-10.2); GFR AFRICAN-AMERICAN > 60; GFR NON-AFRICAN AMERICAN > 60
[2017-10-16 10:19] VITALS: BP 120/89; PULSE 74; TEMP 98
== END 2017-10-16 10:00 | disposition left against medical advice (07) ==
LOC: H.ER 06:42
DX: K29.70 Gastritis, unspecified, without bleeding (principal); J45.909 Unspecified asthma, uncomplicated; Z88.0 Allergy status to penicillin; Z86.59 Personal history of other mental and behavioral disorders
CPT/HCPCS: 80053; 85025; 96360; 96361; 99282; J7040

== ENCOUNTER 2017-10-27 00:33 | Emergency (ER) | payer MEDICARE, MEDICAID ==
[2017-10-27 00:33] VITALS: BMI 31.7
[2017-10-27 00:54] VITALS: BP 111/67; PULSE 76; RESP 17; TEMP 98; O2SAT 96
[2017-10-27] MEDS ORDERED: Sodium Chloride 0.9% 1,000 ML IV STA (01:03)
--- NOTE | 2017-10-27 01:29 | ED PDOC ---
Syncope/Near Syncope/Dizziness Time Seen by Provider: 10/27/17 00:50 Chief Complaint (Nursing): Dizziness/Lightheaded Chief Complaint (Provider): Dizziness/Lightheaded History Per: Patient History/Exam Limitations: no limitations Onset/Duration Of Symptoms: Days (x14) Current Symptoms Are (Timing): Still Present Additional Complaint(s): Alexandru Hernandez is a 27 year old male with a past medical history of asthma and schizo-affective disorder, who is presenting to the ED for evaluation of generalized weakness with associated light headedness, onset 2 weeks ago. Patient states that visited an urgent care center last week and was prescribed potassium, with no blood test done at the time. 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 Patient is requesting IV fluids and denies any fever, cough, nausea, vomiting, or diarrhea. PMD: none provided Past Medical History Reviewed: Historical Data, Nursing Documentation, Vital Signs Vital Signs: Last Vital Signs Temp 98.0 F 10/27/17 00:45 Pulse 76 10/27/17 00:45 Resp 17 10/27/17 00:45 BP 111/67 10/27/17 00:45 Pulse Ox 96 10/27/17 00:45 - Medical History PMH: Anxiety, Arthritis, Asthma, Bipolar Disorder, Depression, Migraine, Post Traumatic Stress Disorder Denies: Diabetes, Hepatitis, HIV, HTN, Chronic Kidney Disease, Schizophrenia , Seizures, Sexually Transmitted Disease - Surgical History Surgical History: No Surg Hx - Family History Family History: States: Unknown Family Hx - Social History Current smoker - smoking cessation education provided: No Alcohol: None Drugs: Denies - Immunization History Hx Tetanus Toxoid Vaccination: Yes Hx Influenza Vaccination: Yes Hx Pneumococcal Vaccination: No - Home Medications Home Medications: Ambulatory Orders Medication Instructions Recorded Gabapentin [Neurontin] 300 mg PO DAILY #5 cap 07/17/17 Meclizine [Meclizine*] 25 mg PO Q6 PRN #20 tab 07/17/17 Ranitidine HCl [Zantac] 150 mg PO BID #20 tablet 07/17/17 Acetaminophen/Butalbital/Caf 1 tab PO TID PRN #20 tab 09/04/17 [Fioricet] Doxycycline Hyclate 100 mg PO BID #20 capsule 09/04/17 Fluticasone Propionate [Flonase] 2 spr CHAPITO DAILY #1 bottle 09/04/17 Ibuprofen [Motrin Tab] 600 mg PO QID PRN #20 tab 09/04/17 - Allergies Allergies/Adverse Reactions: Allergies Allergy/AdvReac Type Severity Reaction Status Date / Time amoxicillin Allergy Severe ANAPHYLAXIS Verified 09/26/17 15:16 bee pollen Allergy Severe ANAPHYLAXIS Verified 09/26/17 15:16 Penicillins Allergy Severe ANAPHYLAXIS Verified 09/26/17 15:16 haloperidol [From Haldol] Allergy Mild RASH Verified 09/26/17 15:16 haloperidol lactate Allergy Mild RASH Verified 09/26/17 15:16 [From Haldol] Review of Systems ROS Statement: Except As Marked, All Systems Reviewed And Found Negative Constitutional: Positive for: Weakness. Negative for: Fever Respiratory: Negative for: Cough Gastrointestinal: Negative for: Nausea, Vomiting, Diarrhea Neurological: Positive for: Other (light headedness) Physical Exam - Reviewed Nursing Documentation Reviewed: Yes Vital Signs Reviewed: Yes - Physical Exam Appears: Positive for: Non-toxic, No Acute Distress Head Exam: Positive for: ATRAUMATIC, NORMAL INSPECTION, NORMOCEPHALIC Skin: Positive for: Normal Color, Warm, Dry Eye Exam: Positive for: EOMI, Normal appearance, PERRL ENT: Positive for: Normal ENT Inspection, Other (mucous membranes dry) Neck: Positive for: Normal, Painless ROM Cardiovascular/Chest: Positive for: Regular Rate, Rhythm Respiratory: Positive for: Normal Breath Sounds. Negative for: Respiratory Distress Gastrointestinal/Abdominal: Positive for: Normal Exam, Soft. Negative for: Tenderness Back: Positive for: Normal Inspection Extremity: Positive for: Normal ROM. Negative for: Deformity Neurologic/Psych: Positive for: Alert, Oriented. Negative for: Motor/Sensory Deficits - Laboratory Results Result Diagrams: 10/27/17 01:25 10/27/17 01:25 - ECG O2 Sat by Pulse Oximetry: 96 (RA) Pulse Ox Interpretation: Normal Medical Decision Making Medical Decision Making: Time: 1:03 Impression: 27 year old male with generalized weakness Plan: --EKG --Alcohol Serum --BMP --Drug Screen --ED Urine Dipstick --CBC --IV Fluids --[place] --Urinalysis 5:00 Labs were reviewed with no clinically significant abnormalities. Patient reports an improvement in symptoms. Upon provider reevaluation patient is feeling better, is medically stable, and requires no further treatment in the ED at this time. Patient will be discharged. Counseling was provided and all questions were answered regarding diagnosis and need for follow up. There is agreement to discharge plan. Return if symptoms persist or worsen. Scribe Attestation: Documented by, Bronwyn Watson acting as a scribe for Shoaib Young MD. Provider Scribe Attestation: All medical record entries made by the Scribe were at my direction and personally dictated by me. I have reviewed the chart and agree that the record accurately reflects my personal performance of the history, physical exam, medical decision making, and the department course for this patient. I have also personally directed, reviewed, and agree with the discharge instructions and disposition. Disposition - Clinical Impression Clinical Impression: Dizziness, Dizziness of unknown cause - Patient ED Disposition Is Patient to be Admitted: No - Disposition Disposition: Routine/Home Disposition Time: 05:03 Condition: STABLE Instructions: Dizziness, Nonvertigo, (DC) Forms: [employer] (Scottish)
[2017-10-27 01:40] LABS: BASO # 0.1 K/uL (0.0-0.2); BASO % 0.5 % (0.0-2.0); EOS # 0.4 K/uL (0.0-0.7); EOS % 3.5 % (0.0-4.0); HEMOGLOBIN 14.5 g/dL (12.0-18.0); LYMPH # 3.6 K/uL (1.0-4.3); LYMPH % 31.8 % (20.0-40.0); MEAN CELL VOLUME 94.3 fl (80.0-94.0); MEAN CORPUSCULAR HEMOGLOBIN 32.1 pg (27.0-31.0); MEAN PLATELET VOLUME 7.9 fl (7.2-11.7); MONO # 0.9 K/uL (0.0-0.8); MONO % 8.5 % (0.0-10.0); NEUT # 6.2 K/uL (1.8-7.0); NEUT % 55.7 % (50.0-75.0); RBC 4.52 Mil/uL (4.40-5.90); RED CELL DISTRIBUTION WIDTH 13.8 % (11.5-14.5); WHITE BLOOD COUNT 11.2 K/uL (4.8-10.8)
[2017-10-27 01:44] LABS: BLOOD UREA NITROGEN 18 mg/dl (9-20); CALCIUM 9.4 mg/dL (8.4-10.2); GFR AFRICAN-AMERICAN > 60; GFR NON-AFRICAN AMERICAN > 60
--- NOTE | 2017-10-27 16:20 | CARD ---
APPROVED REPORT EKG Measurement Heart [id number] <Conclusion> Normal sinus rhythm with sinus arrhythmia Normal ECG
== END 2017-10-27 05:03 | disposition home or self-care (01) ==
LOC: H.ER 00:33
DX: R42 Dizziness and giddiness (principal); F31.9 Bipolar disorder, unspecified; F43.10 Post-traumatic stress disorder, unspecified; J45.909 Unspecified asthma, uncomplicated; Z88.0 Allergy status to penicillin
CPT/HCPCS: 80048; 82948; 85025; 93005; 96360; 99283; G0480; J7030

== ENCOUNTER 2017-11-02 00:25 | Inpatient (IN) | payer MEDICARE, MEDICAID ==
[2017-11-02 00:25] VITALS: BMI 32.4
--- NOTE | 2017-11-02 01:25 | ED PDOC ---
HPI: Psych/Substance Abuse Time Seen by Provider: 11/02/17 01:09 Chief Complaint (Nursing): Psychiatric Evaluation Chief Complaint (Provider): crisis eval History Per: Patient History/Exam Limitations: no limitations Onset/Duration Of Symptoms: Days (1) Current Symptoms Are (Timing): Still Present Additional Complaint(s): 27 y/o male history of post-traumatic stress disorder, schizoaffective disorder , anxiety presents for crisis eval. Patient states he has been off of his psych medications for almost one year and tonight started having suicidal thoughts with a plan to jump in front of the train. Patient admits to attempts in the past. Denies homicidal ideations, hallucinations, acute medical complaints. Past Medical History Reviewed: Historical Data, Nursing Documentation, Vital Signs Vital Signs: Last Vital Signs Temp 98.0 F 11/02/17 01:14 Pulse 67 11/02/17 01:14 Resp 16 11/02/17 01:14 BP 115/72 11/02/17 01:14 Pulse Ox 99 11/02/17 01:14 - Medical History PMH: Anxiety, Arthritis, Asthma, Bipolar Disorder, Depression, Migraine, Post Traumatic Stress Disorder, Schizophrenia Denies: Diabetes, Hepatitis, HIV, HTN, Chronic Kidney Disease, Seizures, Sexually Transmitted Disease - Surgical History Surgical History: No Surg Hx - Family History Family History: States: Unknown Family Hx - Immunization History Hx Tetanus Toxoid Vaccination: Yes Hx Influenza Vaccination: Yes Hx Pneumococcal Vaccination: No - Home Medications Home Medications: Ambulatory Orders Medication Instructions Recorded Gabapentin [Neurontin] 300 mg PO DAILY #5 cap 07/17/17 Meclizine [Meclizine*] 25 mg PO Q6 PRN #20 tab 07/17/17 Ranitidine HCl [Zantac] 150 mg PO BID #20 tablet 07/17/17 Acetaminophen/Butalbital/Caf 1 tab PO TID PRN #20 tab 09/04/17 [Fioricet] Doxycycline Hyclate 100 mg PO BID #20 capsule 09/04/17 Fluticasone Propionate [Flonase] 2 spr CHAPITO DAILY #1 bottle 09/04/17 Ibuprofen [Motrin Tab] 600 mg PO QID PRN #20 tab 09/04/17 - Allergies Allergies/Adverse Reactions: Allergies Allergy/AdvReac Type Severity Reaction Status Date / Time amoxicillin Allergy Severe ANAPHYLAXIS Verified 09/26/17 15:16 bee pollen Allergy Severe ANAPHYLAXIS Verified 09/26/17 15:16 Penicillins Allergy Severe ANAPHYLAXIS Verified 09/26/17 15:16 haloperidol [From Haldol] Allergy Mild RASH Verified 09/26/17 15:16 haloperidol lactate Allergy Mild RASH Verified 09/26/17 15:16 [From Haldol] Review of Systems ROS Statement: Except As Marked, All Systems Reviewed And Found Negative Psych: Positive for: Suicidal ideation Physical Exam - Reviewed Nursing Documentation Reviewed: Yes Vital Signs Reviewed: Yes - Physical Exam Appears: Positive for: Well, Non-toxic, No Acute Distress Head Exam: Positive for: ATRAUMATIC, NORMAL INSPECTION, NORMOCEPHALIC Skin: Positive for: Normal Color Eye Exam: Positive for: Normal appearance ENT: Positive for: Normal ENT Inspection Cardiovascular/Chest: Positive for: Regular Rate, Rhythm Respiratory: Positive for: Normal Breath Sounds Gastrointestinal/Abdominal: Positive for: Normal Exam Back: Positive for: Normal Inspection Extremity: Positive for: Normal ROM Neurologic/Psych: Positive for: Alert, Oriented - Laboratory Results Result Diagrams: 11/02/17 02:43 11/02/17 02:43 - ECG O2 Sat by Pulse Oximetry: 99 - Radiology X-Ray: Viewed By Nm X-Ray Interpretation: No Acute Disease - Progress ED Course And Treament: labs, urine, chest xray, 1:1, crisis eval Patient evaluated by tool maintenance worker; to be admitted as per Dr. Hummel Medical Decision Making Medical Decision Making: Patient medically stable for psych admission Disposition - Clinical Impression Clinical Impression: Schizoaffective disorder - Patient ED Disposition Is Patient to be Admitted: Yes - Disposition Referrals: Hang Li MD [Primary Care Provider] - Disposition Time: 03:29 Condition: STABLE Forms: [employer] (Danish)
[2017-11-02 02:55] LABS: BASO # 0.1 K/uL (0.0-0.2); BASO % 0.7 % (0.0-2.0); EOS # 0.4 K/uL (0.0-0.7); EOS % 3.4 % (0.0-4.0); HEMOGLOBIN 15.8 g/dL (12.0-18.0); LYMPH # 3.7 K/uL (1.0-4.3); LYMPH % 30.6 % (20.0-40.0); MEAN CELL VOLUME 95.3 fl (80.0-94.0); MEAN CORPUSCULAR HEMOGLOBIN 32.2 pg (27.0-31.0); MEAN CORPUSCULAR HGB CONC 33.8 g/dL (33.0-37.0); MONO % 8.1 % (0.0-10.0); NEUT % 57.2 % (50.0-75.0); NRBC % 0.1 % (0.0-0.0); RBC 4.89 Mil/uL (4.40-5.90); RED CELL DISTRIBUTION WIDTH 13.9 % (11.5-14.5); WHITE BLOOD COUNT 12.3 K/uL (4.8-10.8)
[2017-11-02 03:03] LABS: BLOOD UREA NITROGEN 16 mg/dl (9-20); CALCIUM 9.8 mg/dL (8.4-10.2); GFR AFRICAN-AMERICAN > 60; GFR NON-AFRICAN AMERICAN > 60
[2017-11-02 03:20] LABS: SQUAMOUS EPITHIAL < 1 /hpf (0-5); URINE BACTERIA RARE (<OCC); URINE BILIRUBIN NEGATIVE (NEGATIVE); URINE BLOOD NEGATIVE (NEGATIVE); URINE CLARITY SLIGHTY-CLOUDY (Clear); URINE COLOR YELLOW (YELLOW); URINE GLUCOSE (UA) NEG (Normal); URINE HYALINE CAST 0-2 /hpf (0-2); URINE LEUKOCYTE ESTERASE NEG Leu/uL (Negative); URINE PROTEIN NEGATIVE (NEGATIVE); URINE UROBILINOGEN 0.2-1.0 mg/dL (0.2-1.0)
[2017-11-02 03:36] LABS: BARBITURATES, UR NEGATIVE (NEGATIVE); BENZODIAZEPINES, UR NEGATIVE (NEGATIVE); OPIATES, UR NEGATIVE (NEGATIVE); PHENCYCLIDINE, UR POSITIVE (NEGATIVE)
[2017-11-02 04:21] VITALS: O2SAT 100
[2017-11-02] MEDS ORDERED: Magnesium Hydroxide Susp 30 ml UD PO PRN (05:08)
[2017-11-02] MEDS ORDERED: Alum-Mag Hydrox-Simethicone Susp (30 mL) PO PRN (05:08)
[2017-11-02] MEDS ORDERED: DiphenhydrAMINE 50 mg/ml Inj IM PRN (05:08)
--- NOTE | 2017-11-02 07:06 | PCM.BM ---
<Benjy Tang J - Last Filed: 11/02/17 07:03> Treatment Plan Problems - Problems identified on initial assessmt anxiety Date Initiated: 11/02/17 Time Initiated: 07:04 Assessment reference: NA Status: Active Suicidal Ideation Date Initiated: 11/02/17 Time Initiated: 07:04 Assessment reference: NA Status: Active Treatment assets and liabiliti Patient Assests: adapts well, cooperative, educated, ADL independent, physically healthy, negotiates basic needs, cognitively intact Patient Liabilities: financial problems, poor support system, substance abuse - Milieu Protocol Maintain good personal hygiene: daily Remind patient to perform daily oral care , every other day Encourage regular showers Conduct patient checks and document Observation sheet: Q15 minutes Maintain personal safety: every shift Educate patient to report safety concerns to staff, every shift Monitor environment for contraband/sharps Medication safety: Monitor for expected outcome, potential side effects: every shift, Assess barriers to learning: every shift, Assess readiness for medication education: every shift <Olayinka Petit J - Last Filed: 11/04/17 07:06> Family Contact Family involvement: Famliy/SO not involved Family contact: Patient declines to allow family contact at present Family contact name: Pt denied. - Outside Agency Agency 1 Care involvment: Information-sharing Agency contact name: [facility] contact number: [phone] - Goals for Treatment Patient goals for treatment: Pt was combative and evasive, yet was able to articulate that he would like to have a noticible decrease in his depression and better sleep. Discharge/Continuing Care - Education Needs Education Needs: Patient Medication, Patient Diagnosis/Disease Process, Patient Coping Skills, Patient Community resources, Patient Aftercare Safety Plan - Discharge Discharge Criteria: Tolerates medication w/o severe side effects, Free of Suicidal thoughts, Free of agitation, No longer exhibiting s/s of withdrawal, Reduction of target symptoms Discharge to:: Detention - Treatment Team Participation Patient/Family/SO Statement: 11/04/17 07:04 Pt reported that he felt tired and regarding his mood the same as when he was admitted. Pt reported he still felt severely depressed and his affect and mood did appear depressed. Pt asked if Dr. Arzoal could discontinue his Seroquel in the morning as it makes him groggy. Pt then reported that he wants a medical doctor to see him due to symptoms from pollen allergies causing him to experience a sore throat. Pt requested referral to [facility]. Discussed with Family/SO: No Was Patient/Family/SO present at Treatment Team Meeting: Yes
[2017-11-02] MEDS ORDERED: Albuterol HFA 90 mcg/actuation (8 g) INH PRN (08:18)
--- NOTE | 2017-11-02 08:18 | CP.PCM.HP ---
History of Present Illness - History of Present Illness History of Present Illness: pt admitted for uncontrolledschizophrenia. no f/c, n/v/d. no physical complaints offered. per records pt has not taken meds x 2 months. pt c/o feeling tired/weak. no noted/reported hallucinations Present on Admission - Present on Admission Any Indicators Present on Admission: No Review of Systems - Psychiatric Psychiatric: As Per HPI, Behavioral Changes Past Patient History - Infectious Disease Hx of Infectious Diseases: None - Tetanus Immunizations Tetanus Immunization: Unknown - Past Medical History & Family History Past Medical History?: Yes - Past Social History Smoking Status: Light Smoker < 10 Cigarettes Daily - CARDIAC Hx Hypertension: No - PULMONARY Hx Asthma: Yes - NEUROLOGICAL Hx Seizures: No - HEENT Hx HEENT Problems: No - RENAL Hx Chronic Kidney Disease: No - ENDOCRINE/METABOLIC Hx Endocrine Disorders: No - HEMATOLOGICAL/ONCOLOGICAL Hx Human Immunodeficiency Virus (HIV): No - INTEGUMENTARY Hx Dermatological Problems: No - MUSCULOSKELETAL/RHEUMATOLOGICAL Hx Arthritis: Yes - GASTROINTESTINAL Hx Gastrointestinal Disorders: No - GENITOURINARY/GYNECOLOGICAL Hx Sexually Transmitted Disorders: No - PSYCHIATRIC Hx Bipolar Disorder: Yes Hx Substance Use: Yes (PCP, Marijuana) - SURGICAL HISTORY Hx Surgeries: No - ANESTHESIA Hx Anesthesia: No Hx Anesthesia Reactions: No Hx Malignant Hyperthermia: No Meds Allergies/Adverse Reactions: Allergies Allergy/AdvReac Type Severity Reaction Status Date / Time amoxicillin Allergy Severe ANAPHYLAXIS Verified 09/26/17 15:16 bee pollen Allergy Severe ANAPHYLAXIS Verified 09/26/17 15:16 Penicillins Allergy Severe ANAPHYLAXIS Verified 09/26/17 15:16 haloperidol [From Haldol] Allergy Mild RASH Verified 09/26/17 15:16 haloperidol lactate Allergy Mild RASH Verified 09/26/17 15:16 [From Haldol] Physical Exam - Constitutional Appears: Well, Non-toxic, No Acute Distress - Head Exam Head Exam: ATRAUMATIC, NORMAL INSPECTION, NORMOCEPHALIC - Eye Exam Eye Exam: EOMI, Normal appearance, PERRL Pupil Exam: NORMAL ACCOMODATION, PERRL - ENT Exam ENT Exam: Mucous Membranes Moist, Normal Exam - Neck Exam Neck exam: Positive for: Normal Inspection - Respiratory Exam Respiratory Exam: Clear to Auscultation Bilateral, NORMAL BREATHING PATTERN - Cardiovascular Exam Cardiovascular Exam: REGULAR RHYTHM, RRR, +S1, +S2 - GI/Abdominal Exam GI & Abdominal Exam: Normal Bowel Sounds, Soft. absent: Tenderness - Extremities Exam Extremities exam: Positive for: full ROM, normal capillary refill, normal inspection, pedal pulses present - Back Exam Back exam: NORMAL INSPECTION - Neurological Exam Neurological exam: Alert, CN II-XII Intact, Normal Gait, Oriented x3, Reflexes Normal - Psychiatric Exam Psychiatric exam: Normal Affect, Normal Mood - Skin Skin Exam: Dry, Intact, Normal Color, Warm Results - Vital Signs Recent Vital Signs: Last Vital Signs Temp 98.0 F 11/02/17 04:46 Pulse 59 L 11/02/17 05:17 Resp 20 11/02/17 05:17 BP 115/59 L 11/02/17 04:46 Pulse Ox 100 11/02/17 04:46 - Labs Result Diagrams: 11/02/17 02:43 11/02/17 02:43 Labs: Laboratory Results - last 24 hr 11/02/17 11/02/17 11/02/17 02:43 02:43 03:00 WBC 12.3 H RBC 4.89 Hgb 15.8 Hct 46.6 MCV 95.3 H MCH 32.2 H MCHC 33.8 RDW 13.9 Plt Count 260 MPV 8.0 Neut % (Auto) 57.2 Lymph % (Auto) 30.6 Drew % (Auto) 8.1 Eos % (Auto) 3.4 Baso % (Auto) 0.7 Neut # (Auto) 7.0 Lymph # (Auto) 3.7 Drew # (Auto) 1.0 H Eos # (Auto) 0.4 Baso # (Auto) 0.1 Sodium 144 Potassium 3.9 Chloride 107 Carbon Dioxide 25 Anion Gap 16 BUN 16 Creatinine 0.8 Est GFR ( Amer) > 60 Est GFR (Non-Af Amer) > 60 Random Glucose 98 Calcium 9.8 Urine Color Urine Clarity Urine pH Ur Specific [place] Urine Protein Urine Glucose (UA) Urine Ketones Urine Blood Urine Nitrate Urine Bilirubin Urine Urobilinogen Ur Leukocyte Esterase Urine RBC (Auto) Urine Microscopic WBC Ur Squamous Epith Cells Urine Bacteria Hyaline Casts Urine Opiates Screen Negative Urine Methadone Screen Negative Ur Barbiturates Screen Negative Ur Phencyclidine Scrn Positive H Ur Amphetamines Screen Negative U Benzodiazepines Scrn Negative U Oth Cocaine Metabols Negative U Cannabinoids Screen Positive H Alcohol, Quantitative < 10 11/02/17 03:00 WBC RBC Hgb Hct MCV MCH MCHC RDW Plt Count MPV Neut % (Auto) Lymph % (Auto) Drew % (Auto) Eos % (Auto) Baso % (Auto) Neut # (Auto) Lymph # (Auto) Drew # (Auto) Eos # (Auto) Baso # (Auto) Sodium Potassium Chloride Carbon Dioxide Anion Gap BUN Creatinine Est GFR ( Amer) Est GFR (Non-Af Amer) Random Glucose Calcium Urine Color Yellow Urine Clarity Slighty-cloudy Urine pH 5.0 Ur Specific [place] 1.033 H Urine Protein Negative Urine Glucose (UA) Neg Urine Ketones Negative Urine Blood Negative Urine Nitrate Negative Urine Bilirubin Negative Urine Urobilinogen 0.2-1.0 Ur Leukocyte Esterase Neg Urine RBC (Auto) 2 Urine Microscopic WBC 2 Ur Squamous Epith Cells < 1 Urine Bacteria Rare Hyaline Casts 0-2 Urine Opiates Screen Urine Methadone Screen Ur Barbiturates Screen Ur Phencyclidine Scrn Ur Amphetamines Screen U Benzodiazepines Scrn U Oth Cocaine Metabols U Cannabinoids Screen Alcohol, Quantitative Assessment & Plan (1) DVT prophylaxis Assessment and Plan: ambulation Status: Acute (2) Asthma, mild intermittent Assessment and Plan: albuterol prn Status: Acute (3) Schizoaffective disorder Assessment and Plan: psych meds, interventions, therapies Status: Acute Priority: Medium (4) Bipolar 1 disorder Status: Acute Decision To Admit - Pt Status Changed To: Hospital Disposition Of: Inpatient - Admit Certification Admit to Inpatient:: After my assessment, the patient will require hospitalization for at least two midnights. This is because of the severity of symptoms shown, intensity of services needed, and/or the medical risk in this patient being treated as an outpatient. - . Bed Request Type: Adult Psychiatry Admitting Physician: Heidi Hammonds
--- NOTE | 2017-11-02 09:42 | RAD ---
HISTORY: admit COMPARISON: Chest and rib radiographs 09/26/2017. TECHNIQUE: Chest PA and lateral FINDINGS: LUNGS: No active pulmonary disease. PLEURA: No significant pleural effusion identified. No pneumothorax apparent. CARDIOVASCULAR: Normal. OSSEOUS STRUCTURES: No significant abnormalities. VISUALIZED UPPER ABDOMEN: Normal. OTHER FINDINGS: None. IMPRESSION: No active disease.
--- NOTE | 2017-11-02 14:25 | CP.PCM.CON ---
History of Present Illness - History of Present Illness History of Present Illness: Podiatry Consult Note- Dr. Buchanan 27 y.o male with PMHx including asthma, mood disorder/ bipolar disorder and schizoaffective disorder seen and evaluated for bilateral lower extremity pain. Patient reports that he has pain to the heel and balls of his feet. Worse with ambulation. Reports has seen a student accounts manager in which surgical intervention was an option. Patient denies noticing any open wounds. Patient denies nausea, fever, shortness of breath, chest pains or chills Past Patient History - Infectious Disease Hx of Infectious Diseases: None - Tetanus Immunizations Tetanus Immunization: Unknown - Past Medical History & Family History Past Medical History?: Yes - Past Social History Smoking Status: Light Smoker < 10 Cigarettes Daily - CARDIAC Hx Hypertension: No - PULMONARY Hx Asthma: Yes - NEUROLOGICAL Hx Seizures: No - HEENT Hx HEENT Problems: No - RENAL Hx Chronic Kidney Disease: No - ENDOCRINE/METABOLIC Hx Endocrine Disorders: No - HEMATOLOGICAL/ONCOLOGICAL Hx Human Immunodeficiency Virus (HIV): No - INTEGUMENTARY Hx Dermatological Problems: No - MUSCULOSKELETAL/RHEUMATOLOGICAL Hx Arthritis: Yes - GASTROINTESTINAL Hx Gastrointestinal Disorders: No - GENITOURINARY/GYNECOLOGICAL Hx Sexually Transmitted Disorders: No - PSYCHIATRIC Hx Bipolar Disorder: Yes Hx Substance Use: Yes (PCP, Marijuana) - SURGICAL HISTORY Hx Surgeries: No - ANESTHESIA Hx Anesthesia: No Hx Anesthesia Reactions: No Hx Malignant Hyperthermia: No Meds Allergies/Adverse Reactions: Allergies Allergy/AdvReac Type Severity Reaction Status Date / Time amoxicillin Allergy Severe ANAPHYLAXIS Verified 09/26/17 15:16 bee pollen Allergy Severe ANAPHYLAXIS Verified 09/26/17 15:16 Penicillins Allergy Severe ANAPHYLAXIS Verified 09/26/17 15:16 haloperidol [From Haldol] Allergy Mild RASH Verified 09/26/17 15:16 haloperidol lactate Allergy Mild RASH Verified 09/26/17 15:16 [From Haldol] - Medications Medications: Current Medications Acetaminophen (Tylenol 325mg Tab) 650 mg PO Q4 PRN PRN Reason: Pain, moderate (4-7) Al Hydrox/Mg Hydrox/Simethicone (Maalox Plus 30 Ml) 30 ml PO Q4 PRN PRN Reason: Dyspepsia Albuterol (Ventolin Hfa 90 Mcg/Actuation (8 G)) 2 puff INH RQ4 PRN PRN Reason: Shortness of Breath Chlorpromazine (Thorazine) 50 mg PO Q6 PRN PRN Reason: Agitation Chlorpromazine (Thorazine) 50 mg IM Q4 PRN PRN Reason: Agitation Diphenhydramine HCl (Benadryl) 50 mg IM Q6 PRN PRN Reason: Extrapyramidal S/S Unable PO Diphenhydramine HCl (Benadryl) 50 mg PO Q6 PRN PRN Reason: Extrapyramidal Symptoms Diphenhydramine HCl (Benadryl) 50 mg PO HS PRN PRN Reason: Sleep Lorazepam (Ativan) 2 mg IM Q4 PRN PRN Reason: Anxiety/Agitation,Unable PO Lorazepam (Ativan) 1 mg PO Q4 PRN PRN Reason: Anxiety/Agitation Magnesium Hydroxide (Milk Of Magnesia) 30 ml PO HS PRN PRN Reason: Constipation Multivitamins/Minerals (Therapeutic-M Tab) 1 tab PO DAILY CARL Quetiapine Fumarate (Seroquel) 100 mg PO DAILY CARL Quetiapine Fumarate (Seroquel) 200 mg PO HS CARL Physical Exam - Constitutional Appears: Well, Non-toxic, No Acute Distress - Extremities Exam Extremities exam: Negative for: calf tenderness Additional comments: Lower extremity focused examination: VASC: DP/PT pulses are palpable 2/4 B/L. Cap refill time: < 3 seconds to all digits. Skin temperature warm to cool from proximal to distal. no pitting or non -pitting edema noted DERM: no open lesions, no inter digital maceration, nails are cut to hygenic length, no clinical suspicion of active infection, hyperkeratotic callus noted to the sub met 1 bilaterally, xerosis of the plantar foot, no blisters, no abscess, no wounds noted. Hammertoes 2-5 noted, Moderate hallux valgus noted, Cavus foot type bilaterally NEURO: Epicritic and protective sensation intact ORTHO: diffuse pain with palpation to the entire plantar forefoot and plantar heel Results - Vital Signs Recent Vital Signs: Last Vital Signs Temp 96.6 F L 11/02/17 09:00 Pulse 59 L 11/02/17 09:00 Resp 20 11/02/17 09:00 BP 120/82 11/02/17 09:00 Pulse Ox 100 11/02/17 04:46 - Labs Result Diagrams: 11/02/17 02:43 11/02/17 02:43 Labs: Laboratory Results - last 24 hr 11/02/17 11/02/17 11/02/17 02:43 02:43 03:00 WBC 12.3 H RBC 4.89 Hgb 15.8 Hct 46.6 MCV 95.3 H MCH 32.2 H MCHC 33.8 RDW 13.9 Plt Count 260 MPV 8.0 Neut % (Auto) 57.2 Lymph % (Auto) 30.6 [place] % (Auto) 8.1 Eos % (Auto) 3.4 Baso % (Auto) 0.7 Neut # (Auto) 7.0 Lymph # (Auto) 3.7 Travis # (Auto) 1.0 H Eos # (Auto) 0.4 Baso # (Auto) 0.1 Sodium 144 Potassium 3.9 Chloride 107 Carbon Dioxide 25 Anion Gap 16 BUN 16 Creatinine 0.8 Est GFR ( Amer) > 60 Est GFR (Non-Af Amer) > 60 Random Glucose 98 Calcium 9.8 Urine Color Urine Clarity Urine pH Ur Specific [place] Urine Protein Urine Glucose (UA) Urine Ketones Urine Blood Urine Nitrate Urine Bilirubin Urine Urobilinogen Ur Leukocyte Esterase Urine RBC (Auto) Urine Microscopic WBC Ur Squamous Epith Cells Urine Bacteria Hyaline Casts Urine Opiates Screen Negative Urine Methadone Screen Negative Ur Barbiturates Screen Negative Ur Phencyclidine Scrn Positive H Ur Amphetamines Screen Negative U Benzodiazepines Scrn Negative U Oth Cocaine Metabols Negative U Cannabinoids Screen Positive H Alcohol, Quantitative < 10 11/02/17 03:00 WBC RBC Hgb Hct MCV MCH MCHC RDW Plt Count MPV Neut % (Auto) Lymph % (Auto) [place] % (Auto) Eos % (Auto) Baso % (Auto) Neut # (Auto) Lymph # (Auto) [place] # (Auto) Eos # (Auto) Baso # (Auto) Sodium Potassium Chloride Carbon Dioxide Anion Gap BUN Creatinine Est GFR ( Amer) Est GFR (Non-Af Amer) Random Glucose Calcium Urine Color Yellow Urine Clarity Slighty-cloudy Urine pH 5.0 Ur Specific [place] 1.033 H Urine Protein Negative Urine Glucose (UA) Neg Urine Ketones Negative Urine Blood Negative Urine Nitrate Negative Urine Bilirubin Negative Urine Urobilinogen 0.2-1.0 Ur Leukocyte Esterase Neg Urine RBC (Auto) 2 Urine Microscopic WBC 2 Ur Squamous Epith Cells < 1 Urine Bacteria Rare Hyaline Casts 0-2 Urine Opiates Screen Urine Methadone Screen Ur Barbiturates Screen Ur Phencyclidine Scrn Ur Amphetamines Screen U Benzodiazepines Scrn U Oth Cocaine Metabols U Cannabinoids Screen Alcohol, Quantitative Assessment & Plan - Assessment and Plan (Free Text) Assessment: 27 y.o male with PMHx including asthma, mood disorder/ bipolar disorder and schizoaffective disorder with bilateral foot pain secondary to pressure from foot type Plan: Patient examined and evaluated Discussed plan in detail with attending Dr. Buchanan No open lesions noted, no clinical signs of infection Pain likely secondary to cavus foot type with increase pressure placed on metatarsal heads and heel when ambulating Please dispense surgical shoe to lower extremity. To be worn at all times while ambulating to offload metatarsal heads and heel Patient will followup with outpatient student accounts manager once discharge Please reconsulted as needed Thank you for allowing us to take part in patient's care
--- NOTE | 2017-11-02 14:26 | PCM.PSYCH ---
Initial Psychiatric Evaluation - Initial Psychiatric Evaluation Type of Admission: Voluntary Legal Status: Capacity Chief Complaint (in patient's own words): I am put down bty every body and I have no help Patient's Reaction to Hospitalization: pt requested help History of Present Illness and Precipitating Events: pt is 27 ys old male with previous diagnosis of mood disorder/ bipolar disorder , personality disorder, impulse control disorder and hx of schizoaffective disorder pt has not been compliant with medications since September, pt reported since then has been feeling increasingly depressed, reported he has been put down by all his social workers and [employer] workers, feeling lonely , recently feeling hopeless and that he has no goal in life , started having suicidal ideation with plan to overdose, pt came to ER seking help pt reported decreased sleep and appetite, feeling hopeless and helpless, passive suicidal ideation withput active plan or intent on the unit , denied homicidal ideation, pt verbalizing paranoid ideation towards current health care providers at [facility] and also [facility] previous case workers urine toxicology positive for cannabis and PCP Current Medications: Active Medications Generic Name Dose Route Start Last Admin Trade Name Freq PRN Reason Stop Dose Admin Acetaminophen 650 mg 11/02/17 05:08 Tylenol 325mg Tab PO Q4 PRN Pain, moderate (4-7) Al Hydrox/Mg Hydrox/Simethicone 30 ml 11/02/17 05:08 Maalox Plus 30 Ml PO Q4 PRN Dyspepsia Albuterol 2 puff 11/02/17 08:18 Ventolin Hfa 90 Mcg/Actuation (8 G) INH RQ4 PRN Shortness of Breath Diphenhydramine HCl 50 mg 11/02/17 05:08 Benadryl IM Q6 PRN Extrapyramidal S/S Unable PO Diphenhydramine HCl 50 mg 11/02/17 05:08 Benadryl PO Q6 PRN Extrapyramidal Symptoms Diphenhydramine HCl 50 mg 11/02/17 05:13 Benadryl PO HS PRN Sleep Lorazepam 2 mg 11/02/17 05:08 Ativan IM Q4 PRN Anxiety/Agitation,Unable PO Lorazepam 1 mg 11/02/17 05:08 Ativan PO Q4 PRN Anxiety/Agitation Magnesium Hydroxide 30 ml 11/02/17 05:08 Milk Of Magnesia PO HS PRN Constipation Multivitamins/Minerals 1 tab 11/03/17 09:00 Therapeutic-M Tab PO DAILY CARL Quetiapine Fumarate 100 mg 11/02/17 13:45 Seroquel PO 11/02/17 13:46 STAT STA Quetiapine Fumarate 100 mg 11/03/17 09:00 Seroquel PO DAILY CARL Quetiapine Fumarate 200 mg 11/02/17 22:00 Seroquel PO HS CARL Past Psychiatric History - Past Psychiatric History Explanation of prior treatment: PT HAS SIGNIFICAN NUMBER OF ADMISSIONS FOUR PREVIOUS SUICIDAL ATTEMPTS, BY OVERDOSE, CUTTING WRIST WITH SUPERFICIAL SCARS , HISTORY OF VIOLENT BEHAVIOR History of ETOH/Drug Use: HX OF CANNABIS AND PCP ABUSE Pertinent Medical Hx (Current Medical&Sleep Prob, Allergies): Allergies Allergy/AdvReac Type Severity Reaction Status Date / Time amoxicillin Allergy Severe ANAPHYLAXIS Verified 09/26/17 15:16 bee pollen Allergy Severe ANAPHYLAXIS Verified 09/26/17 15:16 Penicillins Allergy Severe ANAPHYLAXIS Verified 09/26/17 15:16 haloperidol [From Haldol] Allergy Mild RASH Verified 09/26/17 15:16 haloperidol lactate Allergy Mild RASH Verified 09/26/17 15:16 [From Haldol] Unobtainable 11/02/17 Mental Status Examination - Personal Presentation Personal Presentation: Looks stated age - Affect Affect: Constricted, Depressed - Motor Activity Motor Activity: Calm - Reliability in Providing Information Reliability in Providing Information: Fair - Speech Speech: Relevant - Mood Mood: Depressed - Formal Thought Process Formal Thought Process: Paranoia, Circumstantial - Hallucinations/Delusions Additional comments: PT DENIED ANY CURRENT PERCEPTUAL DISTURBANCES, NON ELICITED - Obsessions/Compulsions Obsessions: No Compulsions: No - Cognitive Functions Orientation: Person, Place Sensorium: Alert Attention/Concentration: Attentive Estimate of Intelligence: Average Judgement: Imparied, as evidence by: Poor judgement - Risk Risk: Suicidal, Diminished functioning - Strength & Assets Inventory Strength & Assets Inventory: Life experience - Limitations Additional comments: poor compliance DSM 5 DX - DSM 5 DSM 5 Diagnosis: mood disorder/bipolar disorder depressed impulse control disorder antisocial personality traits cannabis use disorder PCP use disorder - Recommended/Plan of Treatment Treatment Recommendations and Plan of Treatment: start seroquel 100mg daily and 200mg qhs podiatry consult group and supportive therapy
[2017-11-03] MEDS: Multivitamin With Minerals Tab PO SCH (08:55)
[2017-11-03 09:11] VITALS: RESP 18
[2017-11-03 09:55] LABS: T4 5.86 ug/dl (5.5-11.0)
--- NOTE | 2017-11-03 15:11 | CP.PCM.PN ---
Subjective - Date & Time of Evaluation Date of Evaluation: 11/03/17 Time of Evaluation: 15:10 - Subjective Subjective: pt c/o headache-mirgraine and phlegm in throat. no f/c, n/v/d. per editing intern pt is manipulative. Objective - Vital Signs/Intake and Output Vital Signs (last 24 hours): Temp Pulse Resp BP Pulse Ox 97.2 F L 75 18 143/86 100 11/03/17 09:00 11/03/17 09:00 11/03/17 09:00 11/03/17 09:00 11/02/17 04:46 - Medications Medications: Current Medications Acetaminophen (Tylenol 325mg Tab) 650 mg PO Q4 PRN PRN Reason: Pain, moderate (4-7) Al Hydrox/Mg Hydrox/Simethicone (Maalox Plus 30 Ml) 30 ml PO Q4 PRN PRN Reason: Dyspepsia Albuterol (Ventolin Hfa 90 Mcg/Actuation (8 G)) 2 puff INH RQ4 PRN PRN Reason: Shortness of Breath Chlorpromazine (Thorazine) 50 mg PO Q6 PRN PRN Reason: Agitation Chlorpromazine (Thorazine) 50 mg IM Q6 PRN PRN Reason: Agitation Diphenhydramine HCl (Benadryl) 50 mg IM Q6 PRN PRN Reason: Extrapyramidal S/S Unable PO Diphenhydramine HCl (Benadryl) 50 mg PO Q6 PRN PRN Reason: Extrapyramidal Symptoms Diphenhydramine HCl (Benadryl) 50 mg PO HS PRN PRN Reason: Sleep Ibuprofen (Motrin Tab) 600 mg PO Q6 PRN PRN Reason: Headache Lorazepam (Ativan) 2 mg IM Q4 PRN PRN Reason: Anxiety/Agitation,Unable PO Lorazepam (Ativan) 1 mg PO Q4 PRN PRN Reason: Anxiety/Agitation Magnesium Hydroxide (Milk Of Magnesia) 30 ml PO HS PRN PRN Reason: Constipation Multivitamins/Minerals (Therapeutic-M Tab) 1 tab PO DAILY CARL Last Admin: 11/03/17 08:55 Dose: 1 tab Promethazine HCl/Dextromethorphan (Phenergan Dm Syrup) 5 ml PO Q6 PRN PRN Reason: cough/phlegm Quetiapine Fumarate (Seroquel) 200 mg PO [facility] Last Admin: 11/02/17 23:21 Dose: Not Given Quetiapine Fumarate (Seroquel) 300 mg PO [facility] - Labs Labs: 11/02/17 02:43 11/02/17 02:43 - Constitutional Appears: Well, Non-toxic, No Acute Distress - Head Exam Head Exam: ATRAUMATIC, NORMAL INSPECTION, NORMOCEPHALIC - Eye Exam Eye Exam: EOMI, Normal appearance, PERRL Pupil Exam: NORMAL ACCOMODATION, PERRL - ENT Exam ENT Exam: Mucous Membranes Moist, Normal Exam - Neck Exam Neck Exam: Full ROM, Normal Inspection. absent: Lymphadenopathy - Respiratory Exam Respiratory Exam: Clear to Ausculation Bilateral, NORMAL BREATHING PATTERN - Cardiovascular Exam Cardiovascular Exam: REGULAR RHYTHM, RRR, +S1, +S2. absent: Murmur - GI/Abdominal Exam GI & Abdominal Exam: Soft, Normal Bowel Sounds. absent: Tenderness - Extremities Exam Extremities Exam: Full ROM, Normal Capillary Refill, Normal Inspection. absent : Joint Swelling, Pedal Edema - Back Exam Back Exam: NORMAL INSPECTION - Neurological Exam Neurological Exam: Alert, Awake, CN II-XII Intact, Normal Gait, Oriented x3 - Psychiatric Exam Psychiatric exam: Normal Affect, Normal Mood - Skin Skin Exam: Dry, Intact, Normal Color, Warm Assessment and Plan (1) DVT prophylaxis Status: Acute (2) Asthma, mild intermittent Status: Acute (3) Schizoaffective disorder Status: Acute (4) Bipolar 1 disorder Status: Acute - Assessment and Plan (Free Text) Assessment: (1) DVT prophylaxis Assessment and Plan: ambulation Status: Acute (2) Asthma, mild intermittent Assessment and Plan: albuterol prn Status: Acute (3) Schizoaffective disorder Assessment and Plan: psych meds, interventions, therapies Status: Acute Priority: Medium (4) Bipolar 1 disorder Status: Acute 5-phlegm/cough-phenergen, albuterol prn [id number] w/ food
--- NOTE | 2017-11-03 16:02 | PCM.PYCHPN ---
Psychiatric Progress Note - Psychiatric Progress Note Patient seen today, length of contact: pt evaluated discussed with team chart reviewed Patient Chief Complaint: I want to get my life together Problems Identified/Issues Discussed: pt evaluated with treatment team,, continues to be irritable , reporting paranoid delusions towards [facility] case management specialist , also reporting paranoid thoughts towards staff members , pt continues to blame others for his current mental and social situation discussed with pt referring him to [facility] in [facility] for social support on discharge pt reported sedation with morning dose of seroquel, agreed to have full dose qhs encouraged to attend groups and participate in treatment pt denied any current suicidal or homicidal ideation denied perceptual disturbances Medical Problems: PT HAS SIGNIFICAN NUMBER OF ADMISSIONS FOUR PREVIOUS SUICIDAL ATTEMPTS, BY OVERDOSE, CUTTING WRIST WITH SUPERFICIAL SCARS , HISTORY OF VIOLENT BEHAVIOR DSM 5 Symptoms Update: bipolar disorder antisocial personality disorder Medication Change: No Medical Record Reviewed: Yes Mental Status Examination - Cognitive Function Orientation: Person, Place Memory: Intact Attention: WNL Concentration: WNL Association: WNL Fund of Knowledge: WNL Decription of patient's judgement and insights: partial insight poor judgment - Mood Mood: Depressed, Anxious - Affect Affect: Constricted, Depressed - Speech Speech: Appropriate - Formal Thought Process Formal Thought Process: Paranoia, Circumstantial Psychotic Thoughts and Behaviors: pt denied perceptual disturbances, non elicited - Suicidal Ideation Suicidal Ideation: No - Homicidal Ideation Homicidal Ideation: No Goal/Treatment Plan - Goal/Treatment Plan Need for Continued Stay: Remain at risks for inpatient hospitalization, Severe depression anxiety, Discharge may exacerbated symptoms, Failed transitioning Progress Toward Problem(s) and Goals/Treatment Plan: seroquel 300 mg qhs referral to [facility] by social human services assistants group and supportive therapy
[2017-11-03] MEDS: Promethazine DM 6.25 mg-15 mg/5 ml Syrup PO PRN (17:41)
[2017-11-04] MEDS: Multivitamin With Minerals Tab PO SCH (10:07)
[2017-11-04] MEDS: Promethazine DM 6.25 mg-15 mg/5 ml Syrup PO PRN ×2 (10:07→21:17)
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
[2017-11-04 18:39] VITALS: BP 122/70; PULSE 72; TEMP 97.2
[2017-11-05] MEDS: Multivitamin With Minerals Tab PO SCH (09:29)
[2017-11-05] MEDS: Promethazine DM 6.25 mg-15 mg/5 ml Syrup PO PRN (09:29)
--- NOTE | 2017-11-05 10:03 | PCM.PYCHDC ---
Mental Status Examination - Mental Status Examination Orientation: Person, Place, Situation, Time Memory: Intact Mood: Neutral Affect: Broad Speech: Appropriate Attention: WNL Concentration: WNL Association: WNL Fund of Knowledge: WNL Formal Thought Process: No Impairment Description of patient's judgement and insight: Fair to Poor I/J; patient is chronically manipulative towards others and frequently lies Psychotic Thoughts and Behaviors: No AH/VH Suicidal Ideation: No Current Homicidal Ideation?: No Discharge Summary - Discharge Note Reason for Hospitalization: As per initial HPI: pt is 27 ys old male with previous diagnosis of mood disorder/ bipolar disorder, personality disorder, impulse control disorder and hx of schizoaffective disorder pt has not been compliant with medications since September, pt reported since then has been feeling increasingly depressed, reported he has been put down by all his social workers and [employer] workers, feeling lonely , recently feeling hopeless and that he has no goal in life , started having suicidal ideation with plan to overdose, pt came to ER seking help pt reported decreased sleep and appetite, feeling hopeless and helpless, passive suicidal ideation withput active plan or intent on the unit , denied homicidal ideation, pt verbalizing paranoid ideation towards current health care providers at [facility] and also [facility] previous case workers urine toxicology positive for cannabis and PCP Consultations:: List each consultation separately and include: 1. Reason for request. 2. Findings. 3. Follow-up Consultations: Medicine consult Summary of Hospital Course include:: 1. Description of specific treatment plan utilized for patients during their course of treatmen. 2. Summarize the time- course for resolution of acute symptoms and/or regressed behaviors. 3. Describe issues identified and worked on during hospitalization. 4. Describe medication utilized. 5. Describe medical problems identified and treated. 6. Reassessment of suicide risk Summary of Hospital Course: Patient was admitted to the psychiatry unit. Individual and group therapy were provided. Patient was treated w/ Cogentin and Seroquel, but patient frequently changes medications during his various psychiatric hospitalizations and states that he wants to leave the hospital AMA and is refusing these medications. Patient has significant antisocial personality traits. He lies and attempts to manipulate others. He denies acute depression/anxiety/AH/VH/paranoia/delusions /SI/HI. He is psychiatrically stable to be discharged at this time. Psychoeducation provided re: dangers of substance abuse. - Final Diagnosis (DSM 5) Condition upon Discharge: STABLE DSM 5: Mood Disorder, r/o substance induced mood disorder vs bipolar disorder vs schizoaffective disorder; Personality disorder (w/ antisocial and paranoid traits); PCP Use disorder Disposition: AGAINST MEDICAL ADVICE Follow-up Treatment Plan: Discharge AMA - Smoking Cessation Smoking Cessation Medication prescribed: No Reason for not providing: Patient declined - Antipsychotic Medications Pt discharged on 2 or more routine antipsychotic medications: No
== END 2017-11-05 13:00 | disposition left against medical advice (07) | DRG 885 ==
LOC: H.ER 00:25 → H.ERHOLD 02:06 → H.PSYCH 04:58
PROVIDERS: ADMIT Psychiatry & Neurology Psychiatry; ATTEND Psychiatry & Neurology Psychiatry
PROC: GZ51ZZZ Individual Psychotherapy, Behavioral (ICD-10-PCS; 2017-11-02)
PROC: GZHZZZZ Group Psychotherapy (ICD-10-PCS; principal; 2017-11-03)
DX: F25.9 Schizoaffective disorder, unspecified (principal); R45.851 Suicidal ideations; F31.9 Bipolar disorder, unspecified; F43.10 Post-traumatic stress disorder, unspecified; F60.0 Paranoid personality disorder; F60.2 Antisocial personality disorder; F63.9 Impulse disorder, unspecified; J45.20 Mild intermittent asthma, uncomplicated; Z79.899 Other long term (current) drug therapy; Z87.891 Personal history of nicotine dependence; Z91.14 Patient's other noncompliance with medication regimen; F32.9 Major depressive disorder, single episode, unspecified; F41.9 Anxiety disorder, unspecified; G43.909 Migraine, unspecified, not intractable, without status migrainosus; M19.90 Unspecified osteoarthritis, unspecified site; M79.671 Pain in right foot; M79.672 Pain in left foot; F12.90 Cannabis use, unspecified, uncomplicated; F16.10 Hallucinogen abuse, uncomplicated

== ENCOUNTER 2017-11-07 18:35 | Emergency (ER) | payer MEDICARE, MEDICAID ==
[2017-11-07 18:36] VITALS: BMI 32.4
[2017-11-07 18:42] VITALS: RESP 18
--- NOTE | 2017-11-07 19:12 | ED PDOC ---
HPI: General Adult Time Seen by Provider: 11/07/17 19:10 Chief Complaint (Nursing): Medical Clearance Chief Complaint (Provider): medical clearance History Per: Patient (27 y/o male under police custody here for medical clearance prior to incarceration. Patient denies any complaints. Patient admits that he is on clonopin/zoloft but denies any symptoms currently.) Past Medical History Reviewed: Historical Data, Nursing Documentation, Vital Signs Vital Signs: Last Vital Signs Temp 97.6 F 11/07/17 18:39 Pulse 82 11/07/17 18:39 Resp 18 11/07/17 18:39 BP 113/80 11/07/17 18:39 Pulse Ox 98 11/07/17 18:39 - Medical History PMH: Anxiety, Arthritis, Asthma, Bipolar Disorder, Depression, Migraine, Post Traumatic Stress Disorder, Schizophrenia Denies: Diabetes, Hepatitis, HIV, HTN, Chronic Kidney Disease, Seizures, Sexually Transmitted Disease - Family History Family History: States: Unknown Family Hx - Immunization History Hx Tetanus Toxoid Vaccination: Yes Hx Influenza Vaccination: Yes Hx Pneumococcal Vaccination: No - Home Medications Home Medications: Ambulatory Orders Medication Instructions Recorded Albuterol HFA [Ventolin HFA 90 2 puff INH RQ4 PRN inhaler 11/05/17 mcg/actuation (8 g)] Multimineral/Multivitamin 1 tab PO DAILY tab 11/05/17 [Therapeutic-M Tab] - Allergies Allergies/Adverse Reactions: Allergies Allergy/AdvReac Type Severity Reaction Status Date / Time amoxicillin Allergy Severe ANAPHYLAXIS Verified 09/26/17 15:16 bee pollen Allergy Severe ANAPHYLAXIS Verified 09/26/17 15:16 Penicillins Allergy Severe ANAPHYLAXIS Verified 09/26/17 15:16 haloperidol [From Haldol] Allergy Mild RASH Verified 09/26/17 15:16 haloperidol lactate Allergy Mild RASH Verified 09/26/17 15:16 [From Haldol] Review of Systems ROS Statement: Except As Marked, All Systems Reviewed And Found Negative Physical Exam - Reviewed Nursing Documentation Reviewed: Yes Vital Signs Reviewed: Yes - Physical Exam Appears: Positive for: Well, Non-toxic, No Acute Distress Head Exam: Positive for: ATRAUMATIC, NORMAL INSPECTION, NORMOCEPHALIC Skin: Positive for: Normal Color, Warm, DRY Eye Exam: Positive for: EOMI, Normal appearance, PERRL ENT: Positive for: Normal ENT Inspection Neck: Positive for: Normal, Painless ROM Cardiovascular/Chest: Positive for: Regular Rate, Rhythm Respiratory: Positive for: CNT, Normal Breath Sounds Gastrointestinal/Abdominal: Positive for: Normal Exam, Soft Back: Positive for: Normal Inspection Extremity: Positive for: Normal ROM Neurologic/Psych: Positive for: Alert, Oriented - ECG O2 Sat by Pulse Oximetry: 98 Disposition - Clinical Impression Clinical Impression: General medical exam - Patient ED Disposition Is Patient to be Admitted: No - Disposition Referrals: [facility] [Outside] Disposition: Routine/Home Disposition Time: 19:11 Condition: FAIR Additional Instructions: PATIENT IS MEDICALLY AND PSYCHIATRICALLY CLEARED FOR INCARCERATION.
[2017-11-07 20:48] VITALS: BP 122/80; PULSE 86; TEMP 98; O2SAT 99
== END 2017-11-07 19:50 ==
LOC: H.ER 18:35
DX: Z86.59 Personal history of other mental and behavioral disorders (principal); Z00.8 Encounter for other general examination; Z02.89 Encounter for other administrative examinations

== ENCOUNTER 2017-12-06 00:08 | Emergency (ER) | payer MEDICARE, MEDICAID ==
[2017-12-06 00:10] VITALS: BMI 32.0
[2017-12-06 00:12] VITALS: TEMP 98.5
[2017-12-06] MEDS ORDERED: Albuterol 0.083% Inhal Sol (2.5 mg/3 mL) UD INH STA (01:48)
[2017-12-06] MEDS ORDERED: Albuterol 0.083% Inhal Sol (2.5 mg/3 mL) UD ONE (01:54)
--- NOTE | 2017-12-06 02:55 | ED PDOC ---
HPI: CCC, URI, Sore Throat Time Seen by Provider: 12/06/17 00:36 Chief Complaint (Nursing): Weakness/Neurological Deficit History Per: Patient Additional Complaint(s): Pt. states he's had cough productive of blood tinged sputum x 1 day. Pt. requesting albuterol neb. Denies fever, chest pain, SOB, chest tightness, palpitations, nasal congestion, sick contacts, recent travel, abdominal pain. Denies weakness, hematemesis, extremity pain contrary to triage note. Past Medical History Reviewed: Historical Data, Nursing Documentation, Vital Signs Vital Signs: Last Vital Signs Temp 98.5 F 12/06/17 00:10 Pulse 70 12/06/17 03:18 Resp 20 12/06/17 03:18 BP 110/60 12/06/17 03:18 Pulse Ox 98 12/06/17 03:18 - Medical History PMH: Anxiety, Arthritis, Asthma, Bipolar Disorder, Depression, Migraine, Post Traumatic Stress Disorder, Schizophrenia Denies: Diabetes, Hepatitis, HIV, HTN, Chronic Kidney Disease, Seizures, Sexually Transmitted Disease - Family History Family History: States: No Known Family Hx - Social History Current smoker - smoking cessation education provided: Yes - Immunization History Hx Tetanus Toxoid Vaccination: Yes Hx Influenza Vaccination: Yes Hx Pneumococcal Vaccination: No - Home Medications Home Medications: Ambulatory Orders Medication Instructions Recorded Albuterol HFA [Ventolin HFA 90 2 puff INH RQ4 PRN inhaler 11/05/17 mcg/actuation (8 g)] Multimineral/Multivitamin 1 tab PO DAILY tab 11/05/17 [Therapeutic-M Tab] Albuterol HFA [Ventolin HFA 90 2 puff IH [id number] PRN #1 each 12/06/17 mcg/actuation (8 g)] Azithromycin [Zithromax] 250 mg PO DAILY #6 tab 12/06/17 - Allergies Allergies/Adverse Reactions: Allergies Allergy/AdvReac Type Severity Reaction Status Date / Time amoxicillin Allergy Severe ANAPHYLAXIS Verified 12/06/17 00:25 bee pollen Allergy Severe ANAPHYLAXIS Verified 12/06/17 00:25 Penicillins Allergy Severe ANAPHYLAXIS Verified 12/06/17 00:25 haloperidol [From Haldol] Allergy Mild RASH Verified 12/06/17 00:25 haloperidol lactate Allergy Mild RASH Verified 12/06/17 00:25 [From Haldol] Review of Systems ROS Statement: Except As Marked, All Systems Reviewed And Found Negative Respiratory: Positive for: Cough, Sputum Physical Exam - Physical Exam Appears: Positive for: Well, Non-toxic, No Acute Distress (no coughing episodes appreciated during ED visit) Skin: Positive for: Normal Color, Warm. Negative for: Rash Eye Exam: Positive for: Normal appearance ENT: Positive for: Normal ENT Inspection Neck: Positive for: Normal, Painless ROM Cardiovascular/Chest: Positive for: Regular Rate, Rhythm Respiratory: Positive for: Normal Breath Sounds. Negative for: Respiratory Distress Neurologic/Psych: Positive for: Alert, Oriented. Negative for: Aphasia, Facial Droop - ECG O2 Sat by Pulse Oximetry: 97 - Radiology X-Ray: Interpreted by Me (CXR) X-Ray Interpretation: No Acute Disease - Progress ED Course And Treament: Albuterol neb x 1 ordered. On re-evaluation, pt. in no distress. Reports feeling much better. Disposition - Clinical Impression Clinical Impression: Acute bronchitis - Patient ED Disposition Is Patient to be Admitted: No - Disposition Referrals: [facility] [Outside] Disposition: Routine/Home Disposition Time: 02:57 Condition: STABLE Additional Instructions: LYDIA LAWSON, thank you for letting us take care of you today. Your provider was Shoaib Young MD and you were treated for WEAKNESS. The emergency medical care you received today was directed at your acute symptoms. If you were prescribed any medication, please fill it and take as directed. It may take several days for your symptoms to resolve. Return to the Emergency Department if your symptoms worsen, do not improve, or if you have any other problems. Please contact your doctor or call one of the physicians/clinics you have been referred to that are listed on the Patient Visit Information form that is included in your discharge packet. Bring any paperwork you were given at discharge with you along with any medications you are taking to your follow up visit. Our treatment cannot replace ongoing medical care by a primary care provider outside of the emergency department. Thank you for allowing the [facility] team to be part of your care today. If you had an X-Ray or CT scan: A Radiologist will review the ED reading if any change in treatment is needed we will contact you. If you had a blood, urine, or wound culture: It will take several days for the results, if any change in treatment is needed we will contact you. If you had an STI test: It will take 48 hours for the results. Please call after 1 week if you have not heard back. Prescriptions: Albuterol HFA [Ventolin HFA 90 mcg/actuation (8 g)] 2 puff IH [id number] PRN #1 each PRN Reason: Wheezing or cough Azithromycin [Zithromax] 250 mg PO DAILY #6 tab Instructions: Acute Bronchitis, Adult (DC) Forms: [employer] (Estonian)
[2017-12-06 03:21] VITALS: BP 110/60; PULSE 70; RESP 20
[2017-12-06 03:50] VITALS: O2SAT 97
--- NOTE | 2017-12-06 08:31 | RAD ---
HISTORY: COMPARISON: 11/02/2017. TECHNIQUE: Chest PA and lateral FINDINGS: LINES AND TUBES: None. LUNG AND PLEURA: The lungs are well inflated and clear. No pleural effusion or pneumothorax. HEART AND MEDIASTINUM: The heart is not enlarged. The hilar and mediastinal contours are within normal limits. SKELETAL STRUCTURES: The bony structures are within normal limits for the patient's age. VISUALIZED UPPER ABDOMEN: Normal. OTHER FINDINGS: None. IMPRESSION: No active pulmonary disease.
== END 2017-12-06 03:18 | disposition home or self-care (01) ==
LOC: H.ER 00:08
DX: J20.9 Acute bronchitis, unspecified (principal); F17.200 Nicotine dependence, unspecified, uncomplicated; Z88.0 Allergy status to penicillin

== ENCOUNTER 2018-01-11 16:46 | Emergency (ER) | payer MEDICARE, MEDICAID ==
[2018-01-11 16:47] VITALS: BMI 32.0
[2018-01-11 17:04] VITALS: O2SAT 100
--- NOTE | 2018-01-11 18:17 | ED PDOC ---
HPI: Psych/Substance Abuse Time Seen by Provider: 01/11/18 17:25 Chief Complaint (Nursing): Psychiatric Evaluation Chief Complaint (Provider): SI History Per: Patient History/Exam Limitations: no limitations Onset/Duration Of Symptoms: Days Additional Complaint(s): 27 yo male presents with SI. Pt states he has been depressed for 2 weeks. Pt states he attempted suicide 5 times in the past 2 weeks. Pt reports taking 2000mg of ambien and waking up 3 days later. Pt also reports attempting to run in front of cars. PT is not taking any psychiatric medications. Past Medical History Reviewed: Historical Data, Nursing Documentation, Vital Signs Vital Signs: Last Vital Signs Temp 97.8 F 01/11/18 17:00 Pulse 66 01/11/18 17:00 Resp 16 01/11/18 17:00 BP 117/74 01/11/18 17:00 Pulse Ox 100 01/11/18 17:00 - Medical History PMH: Anxiety, Arthritis, Asthma, Bipolar Disorder, Depression, Migraine, Post Traumatic Stress Disorder, Schizophrenia Denies: Diabetes, Hepatitis, HIV, HTN, Chronic Kidney Disease, Seizures, Sexually Transmitted Disease - Family History Family History: States: Unknown Family Hx - Immunization History Hx Tetanus Toxoid Vaccination: Yes Hx Influenza Vaccination: Yes Hx Pneumococcal Vaccination: No - Home Medications Home Medications: Ambulatory Orders Medication Instructions Recorded No Known Home Med 12/16/17 - Allergies Allergies/Adverse Reactions: Allergies Allergy/AdvReac Type Severity Reaction Status Date / Time amoxicillin Allergy Severe ANAPHYLAXIS Verified 01/11/18 17:00 bee pollen Allergy Severe ANAPHYLAXIS Verified 01/11/18 17:00 Penicillins Allergy Severe ANAPHYLAXIS Verified 01/11/18 17:00 haloperidol [From Haldol] Allergy Mild RASH Verified 01/11/18 17:00 haloperidol lactate Allergy Mild RASH Verified 01/11/18 17:00 [From Haldol] Review of Systems ROS Statement: Except As Marked, All Systems Reviewed And Found Negative Constitutional: Negative for: Fever, Chills Cardiovascular: Negative for: Chest Pain Respiratory: Negative for: Cough, Shortness of Breath Gastrointestinal: Negative for: Nausea, Vomiting, Abdominal Pain Neurological: Negative for: Weakness, Altered Mental Status, Headache Psych: Positive for: Depression, Suicidal ideation. Negative for: Psychosis, Withdrawal Physical Exam - Reviewed Nursing Documentation Reviewed: Yes Vital Signs Reviewed: Yes - Physical Exam Appears: Positive for: Well, Non-toxic, No Acute Distress Head Exam: Positive for: ATRAUMATIC, NORMAL INSPECTION, NORMOCEPHALIC Skin: Positive for: Normal Color, Warm, DRY Eye Exam: Positive for: Normal appearance ENT: Positive for: Normal ENT Inspection Neck: Positive for: Normal, Painless ROM Cardiovascular/Chest: Positive for: Regular Rate, Rhythm Respiratory: Positive for: Normal Breath Sounds. Negative for: Accessory Muscle Use, Respiratory Distress Back: Positive for: Normal Inspection Extremity: Positive for: Normal ROM Neurologic/Psych: Positive for: Alert, Oriented - ECG O2 Sat by Pulse Oximetry: 100 Medical Decision Making Medical Decision Making: Crisis evaluation completed. Disposition - Clinical Impression Clinical Impression: Depression - Patient ED Disposition Is Patient to be Admitted: No Counseled Patient/Family Regarding: Diagnosis, Need For Followup - Disposition Referrals: [facility] [Outside] Disposition: Routine/Home Disposition Time: 18:37 Condition: GOOD Instructions: Depression Forms: [facility] ([place])
[2018-01-11 23:34] VITALS: BP 121/62; PULSE 85; RESP 18; TEMP 98
== END 2018-01-11 18:35 | disposition home or self-care (01) ==
LOC: H.ER 16:46
DX: F33.9 Major depressive disorder, recurrent, unspecified (principal); F20.9 Schizophrenia, unspecified; F31.9 Bipolar disorder, unspecified; F43.10 Post-traumatic stress disorder, unspecified; Z88.0 Allergy status to penicillin

== ENCOUNTER 2018-03-17 22:42 | Emergency (ER) | payer MEDICARE, OTHER ==
[2018-03-17 22:42] VITALS: BMI 32.0
[2018-03-17 22:53] VITALS: BP 147/82; RESP 17; TEMP 97.9; O2SAT 100
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
[2018-03-18 00:15] VITALS: PULSE 80
== END 2018-03-17 23:57 | disposition home or self-care (01) ==
LOC: H.ER 22:42
DX: J06.9 Acute upper respiratory infection, unspecified (principal); K08.89 Other specified disorders of teeth and supporting structures

== ENCOUNTER 2018-07-04 10:43 | Emergency (ER) | payer MEDICARE, OTHER ==
[2018-07-04 10:44] VITALS: BMI 32.0
[2018-07-04] MEDS ORDERED: Apap-Butalbital-Caffeine 325-50-40mg Tab PO STA (11:35)
--- NOTE | 2018-07-04 11:42 | ED PDOC ---
HPI: Headache Time Seen by Provider: 07/04/18 11:20 Chief Complaint (Nursing): Headache Chief Complaint (Provider): headache History Per: Patient History/Exam Limitations: no limitations Onset/Duration Of Symptoms: Days (x3) Current Symptoms Are (Timing): Still Present Preceeding Symptoms: Known Migraine Symptoms Additional Complaint(s): Alexandru Hernandez is a 27 year old male, with a past medical history of migraines and asthma, who presents to the emergency department complaining of worsening migraines headaches for x3 days. Patient states he takes Fioricet and Flexeril for migraines but recently ran out and his primary is currently on vacation. Patient also reports waking up with dry blood on the roof of his mouth. He denies any fever, chills, nausea, vomit, blurry vision, dizziness or other medical complaints. PMD: Angel Cordero Past Medical History Reviewed: Historical Data, Nursing Documentation, Vital Signs Vital Signs: Last Vital Signs Temp 97.7 F 07/04/18 10:46 Pulse 90 07/04/18 10:46 Resp 18 07/04/18 10:46 BP 141/84 07/04/18 10:46 Pulse Ox 99 07/04/18 10:46 - Medical History PMH: Anxiety, Arthritis, Asthma, Bipolar Disorder, Depression, Migraine, Post Traumatic Stress Disorder, Schizophrenia Denies: Diabetes, Hepatitis, HIV, HTN, Chronic Kidney Disease, Seizures, Sexually Transmitted Disease - Surgical History Surgical History: No Surg Hx - Family History Family History: States: Unknown Family Hx - Social History Current smoker - smoking cessation education provided: Yes (Current some days smoker) Alcohol: Social Drugs: Denies - Immunization History Hx Tetanus Toxoid Vaccination: Yes Hx Influenza Vaccination: Yes Hx Pneumococcal Vaccination: No - Home Medications Home Medications: Ambulatory Orders Medication Instructions Recorded Acetaminophen/Butalbital/Caf 1 tab PO Q6 PRN 03/07/18 [Fioricet] Cyclobenzaprine [Cyclobenzaprine 10 mg PO Q8 PRN 03/07/18 HCl] Clindamycin [Cleocin] 300 mg PO TID #21 cap 03/17/18 Ibuprofen [Motrin Tab] 600 mg PO Q8 PRN #60 tab 03/17/18 Acetaminophen/Butalbital/Caf 1 tab PO Q4H PRN #10 tab 07/04/18 [Fioricet] Ibuprofen [Motrin] 600 mg PO Q6H PRN #20 tab 07/04/18 - Allergies Allergies/Adverse Reactions: Allergies Allergy/AdvReac Type Severity Reaction Status Date / Time amoxicillin Allergy Severe ANAPHYLAXIS Verified 03/28/18 02:28 bee pollen Allergy Severe ANAPHYLAXIS Verified 03/28/18 02:28 Review of Systems ROS Statement: Except As Marked, All Systems Reviewed And Found Negative Constitutional: Negative for: Fever, Chills Eyes: Negative for: Vision Change ENT: Positive for: Other (dry blood on roof of mouth) Gastrointestinal: Negative for: Nausea, Vomiting Neurological: Positive for: Headache. Negative for: Dizziness Physical Exam - Reviewed Nursing Documentation Reviewed: Yes Vital Signs Reviewed: Yes - Physical Exam Appears: Positive for: No Acute Distress Head Exam: Positive for: ATRAUMATIC, NORMAL INSPECTION, NORMOCEPHALIC Skin: Positive for: Normal Color, Warm, Dry Eye Exam: Positive for: Normal appearance, EOMI, PERRL ENT: Positive for: Normal ENT Inspection (No blood noted), Pharynx Is (clear) Neck: Positive for: Normal, Painless ROM Cardiovascular/Chest: Positive for: Regular Rate, Rhythm. Negative for: Murmur Respiratory: Positive for: Normal Breath Sounds. Negative for: Respiratory Distress Gastrointestinal/Abdominal: Positive for: Normal Exam, Soft. Negative for: Tenderness Extremity: Positive for: Normal ROM (upper and lower extremities). Negative for: Deformity, Swelling Neurologic/Psych: Positive for: Alert, Oriented. Negative for: Motor/Sensory Deficits - ECG O2 Sat by Pulse Oximetry: 99 (RA) Pulse Ox Interpretation: Normal Medical Decision Making Medical Decision Making: Time: 11:20 Initial Impression: Migraine headaches Initial Plan: --Fioricet 1 tab PO --Flexeril 10mg PO --Reevaluation Scribe Attestation: Documented by Mayur Mccartney, acting as a scribe for Clementina Guevara MD Provider Scribe Attestation: All medical record entries made by the Scribe were at my direction and personally dictated by me. I have reviewed the chart and agree that the record accurately reflects my personal performance of the history, physical exam, medical decision making, and the department course for this patient. I have also personally directed, reviewed, and agree with the discharge instructions and disposition. Disposition - Clinical Impression Clinical Impression: Acute headache - Disposition Disposition: Routine/Home Disposition Time: 12:54 Condition: GOOD Additional Instructions: FOLLOW-UP WITH PMD WITHIN 2 DAYS FOR REEVALUATION. Prescriptions: Acetaminophen/Butalbital/Caf [Fioricet] 1 tab PO Q4H PRN #10 tab PRN Reason: Headache Ibuprofen [Motrin] 600 mg PO Q6H PRN #20 tab PRN Reason: Pain, Moderate (4-7) Instructions: Migraine Headaches in Adults Forms: [facility] (Kiswahili)
[2018-07-04] MEDS ORDERED: Apap-Butalbital-Caffeine 325-50-40mg Tab ONE (11:57)
[2018-07-04 13:09] VITALS: BP 140/86; PULSE 89; RESP 17; TEMP 98.7
[2018-07-13 15:54] VITALS: O2SAT 99
== END 2018-07-04 13:07 | disposition home or self-care (01) ==
LOC: H.ER 10:43
DX: R51 Headache (principal); F17.200 Nicotine dependence, unspecified, uncomplicated; Z86.59 Personal history of other mental and behavioral disorders; F43.10 Post-traumatic stress disorder, unspecified; J45.909 Unspecified asthma, uncomplicated

== ENCOUNTER 2018-09-16 18:12 | Inpatient (IN) | payer OTHER ==
[2018-09-16 18:12] VITALS: BMI 32.5
--- NOTE | 2018-09-16 19:42 | ED PDOC ---
HPI: Psych/Substance Abuse Time Seen by Provider: 09/16/18 19:12 Chief Complaint (Nursing): Psychiatric Evaluation Chief Complaint (Provider): Psychiatric Evaluation History Per: Patient History/Exam Limitations: no limitations Onset/Duration Of Symptoms: Hrs (x2) Current Symptoms Are (Timing): Still Present Suicide/Self Injury Attempted (Context): Ingestion Additional Complaint(s): 28 year old male with a history of PTSD, paranoid schizophrenia, asthma, body spasms and migraines presents to the ED with intentional overdose. Patient states that for the last 3 days, he has been hearing persecutory voices. While he was at work today, they became too much to handle so he went home to try and calm himself with a coffee and cigarette. The voices became too much, prompting him to attempt to overdose to take his life with 4000 mg Depakote and x11 100 mg of trazodone around 4:30-5pm. Patient felt sleepy and eventually changed his mind and called 911. At present, he reports feeling sleepy, but denies any chest pain, shortness of breath, any other discomfort, other drugs, or alcohol. PMD: none provided Past Medical History Reviewed: Historical Data, Nursing Documentation, Vital Signs Vital Signs: Last Vital Signs Temp 98.5 F 09/16/18 18:29 Pulse 109 H 09/16/18 18:29 Resp 20 09/16/18 18:29 BP 125/79 09/16/18 18:29 Pulse Ox 99 09/16/18 18:29 - Medical History PMH: Anxiety, Arthritis, Asthma, Bipolar Disorder, Depression, Migraine, Post Traumatic Stress Disorder, Schizophrenia Denies: Diabetes, Hepatitis, HIV, HTN, Chronic Kidney Disease, Seizures, Sexually Transmitted Disease Other PMH: body spasms - Family History Family History: States: Unknown Family Hx - Immunization History Hx Tetanus Toxoid Vaccination: Yes Hx Influenza Vaccination: Yes Hx Pneumococcal Vaccination: No - Allergies Allergies/Adverse Reactions: Allergies Allergy/AdvReac Type Severity Reaction Status Date / Time amoxicillin Allergy Severe ANAPHYLAXIS Verified 09/16/18 18:29 bee pollen Allergy Severe ANAPHYLAXIS Verified 09/16/18 18:29 Penicillins Allergy ANAPHYLAXIS Verified 09/16/18 18:29 Review of Systems ROS Statement: Except As Marked, All Systems Reviewed And Found Negative Cardiovascular: Negative for: Chest Pain Respiratory: Negative for: Shortness of Breath Psych: Positive for: Suicidal ideation, Other (auditory hallucinations) Physical Exam - Reviewed Nursing Documentation Reviewed: Yes Vital Signs Reviewed: Yes - Physical Exam Appears: Positive for: No Acute Distress (overweight male who is lethargic during exam) Head Exam: Positive for: ATRAUMATIC, NORMOCEPHALIC Skin: Positive for: Normal Color, Warm, Dry Eye Exam: Positive for: Normal appearance, EOMI, PERRL Cardiovascular/Chest: Positive for: Regular Rate, Rhythm. Negative for: Murmur Respiratory: Positive for: Normal Breath Sounds. Negative for: Respiratory Distress Gastrointestinal/Abdominal: Positive for: Normal Exam, Soft. Negative for: Tenderness Extremity: Positive for: Normal ROM (upper and lower). Negative for: Pedal Edema, Deformity Neurological/Psych: Positive for: Awake, Alert, Oriented (x3) - Laboratory Results Result Diagrams: 09/16/18 20:14 09/17/18 00:50 - ECG O2 Sat by Pulse Oximetry: 99 (RA) Pulse Ox Interpretation: Normal Medical Decision Making Medical Decision Making: Time: 1918 --Workup for intentional overdose Plan: --Labs including liver enzymes, drug screen, alcohol, acetaminophen, salicylate level, Depakote level --equipment monitor phototypesetting --1:1 --EKG --Reevaluation Time: 2104 --Case discussed with April at [facility]. Discussed Depakote level of 40.3 which is subtheraputic and not at a toxic level. Acetaminophen, salicylate, alcohol and drug screens all negative. EKG normal QTC, vitals WNL. Lactic acid of 4.7 which is to be repeated. Heart rate was initially 109, but is now in the 80-90s since evaluation by this provider. Per recommendation will add ammonium level and trend valproic acid level every 4 hours with the next draw at 12:15 am. Will also repeat the EKG and the chemistry panel. If valproic acid level is rising, will give charcoal. If valproic acid level is decrease and asymptomatic, patient will be medically cleared for psychiatric evaluation. Patient remains on monitor, comfortable and with stable vitals. 143 Spoke with [facility]. Patient is now optomized for evaluation by crisis. Patient placed on psychiatry list for evaluation. 227 Patient evaluated by crisis. Diagnosis is schizoaffective disorder. Patient will be admitted under Dr. Stark service. ScribeAttestation: Documented byLiliana Boles, acting as a scribe for Noa Wilder MD. Provider ScribeAttestation: All medical record entries made by the Scribe were at my direction and personally dictated by me. I have reviewed the chart and agree that the record accurately reflects my personal performance of the history, physical exam, medical decision making, and the department course for this patient. Disposition - Clinical Impression Clinical Impression: Schizoaffective disorder, Overdose - Patient ED Disposition Is Patient to be Admitted: Yes - Disposition Disposition Time: 02:28 Condition: IMPROVED
[2018-09-16 20:18] LABS: BASO # 0.1 K/uL (0.0-0.2); BASO % 0.8 % (0.0-2.0); EOS # 0.1 K/uL (0.0-0.7); EOS % 0.4 % (0.0-4.0); HEMOGLOBIN 14.7 g/dL (12.0-18.0); LYMPH # 2.8 K/uL (1.0-4.3); LYMPH % 18.6 % (20.0-40.0); MEAN CELL VOLUME 93.7 fl (80.0-94.0); MEAN CORPUSCULAR HEMOGLOBIN 31.1 pg (27.0-31.0); MEAN CORPUSCULAR HGB CONC 33.2 g/dL (33.0-37.0); MEAN PLATELET VOLUME 7.9 fl (7.2-11.7); MONO # 0.8 K/uL (0.0-0.8); MONO % 5.6 % (0.0-10.0); NEUT # 11.1 K/uL (1.8-7.0); NEUT % 74.6 % (50.0-75.0); RBC 4.73 Mil/uL (4.40-5.90); RED CELL DISTRIBUTION WIDTH 14.3 % (11.5-14.5); WHITE BLOOD COUNT 14.9 K/uL (4.8-10.8)
[2018-09-16 20:25] LABS: SQUAMOUS EPITHIAL < 1 /hpf (0-5); URINE BACTERIA RARE (<OCC); URINE BILIRUBIN NEGATIVE (NEGATIVE); URINE BLOOD NEGATIVE (NEGATIVE); URINE CLARITY CLEAR (Clear); URINE COLOR YELLOW (YELLOW); URINE GLUCOSE (UA) NEG (NEGATIVE); URINE LEUKOCYTE ESTERASE NEG Leu/uL (Negative); URINE PROTEIN 30 mg/dL (NEGATIVE); URINE UROBILINOGEN 0.2-1.0 mg/dL (0.2-1.0)
[2018-09-16 20:28] LABS: PROTHROMBIN TIME 11.3 Seconds (9.8-13.1)
[2018-09-16 20:29] LABS: ACETAMINOPHEN < 10.0 ug/ml (10.0-30.0); ALB/GLOB RATIO 1.5 (1.0-2.1); ALBUMIN 4.4 g/dL (3.5-5.0); ALT/SGPT 29 U/L (21-72); AST/SGOT 27 U/L (17-59); BLOOD UREA NITROGEN 16 mg/dl (9-20); CALCIUM 9.8 mg/dL (8.4-10.2); GFR NON-AFRICAN AMERICAN > 60; LIPASE 108 U/L (23-300); SALICYLATE < 1.0 mg/dl
[2018-09-16 20:31] LABS: PARTIAL THROMBOPLASTIN TIME 27.8 Seconds (25.6-37.1)
[2018-09-16 20:34] LABS: BARBITURATES, UR NEGATIVE (NEGATIVE)
[2018-09-16 20:43] LABS: VENOUS BLOOD GAS BASE EXCESS 2.2 mmol/L (0.0-2.0); VENOUS BLOOD GAS PCO2 34 mmHg (40-60); VENOUS BLOOD GAS PO2 105 mm/Hg (30-55); VENOUS BLOOD PH 7.48 (7.32-7.43)
[2018-09-16 20:53] LABS: BENZODIAZEPINES, UR NEGATIVE (NEGATIVE); OPIATES, UR NEGATIVE (NEGATIVE); PHENCYCLIDINE, UR NEGATIVE (NEGATIVE)
[2018-09-16] MEDS ORDERED: Sodium Chloride 0.9% 1,000 ML IV STA ×2 (20:54)
[2018-09-17 01:15] LABS: ALB/GLOB RATIO 1.5 (1.0-2.1); ALBUMIN 4.1 g/dL (3.5-5.0); ALT/SGPT 32 U/L (21-72); AST/SGOT 21 U/L (17-59); BLOOD UREA NITROGEN 18 mg/dl (9-20); CALCIUM 9.2 mg/dL (8.4-10.2); GFR NON-AFRICAN AMERICAN > 60
[2018-09-17 02:43] VITALS: O2SAT 99
[2018-09-17] MEDS ORDERED: Alum-Mag Hydrox-Simethicone Susp (30 mL) PO PRN (04:52)
[2018-09-17] MEDS ORDERED: Magnesium Hydroxide Susp 30 ml UD PO PRN (04:52)
[2018-09-17] MEDS ORDERED: DiphenhydrAMINE 50 mg/ml Inj IM PRN (04:52)
--- NOTE | 2018-09-17 05:20 | PCM.BM ---
<Becky Villalta - Last Filed: 09/17/18 05:18> Treatment Plan Problems - Problems identified on initial assessmt Suicidal Ideation Date Initiated: 09/17/18 Time Initiated: 05:18 Assessment reference: NA Status: Active Auditory hallucinations Date Initiated: 09/17/18 Time Initiated: 05:19 Assessment reference: NA Status: Active Ineffective Coping Date Initiated: 09/17/18 Time Initiated: 05:20 Assessment reference: NA Status: Active Treatment assets and liabiliti Patient Assests: cooperative, educated, ADL independent, physically healthy, negotiates basic needs, cognitively intact Patient Liabilities: poor support system - Milieu Protocol Maintain good personal hygiene: daily Encourage regular showers, other Remind patient to perform daily oral care (prn), other Assist patient to perform ADL's (prn) Conduct patient checks and document Observation sheet: Q15 minutes Maintain personal safety: every shift Educate patient to report safety concerns to staff, every shift Monitor environment for contraband/sharps Medication safety: Monitor for expected outcome, potential side effects: every shift, Assess barriers to learning: every shift, Assess readiness for medication education: every shift <Olayinka Petit - Last Filed: 09/18/18 16:46> Family Contact Family involvement: Famliy/SO not involved Family contact: Patient declines to allow family contact at present Family contact name: Pt refused. - Goals for Treatment Patient goals for treatment: Pt would like to be restarted on his medications and be referred to an outpatient program where he can receive therapy once weekly. Pt would like to be discharged on , 09/22/18. Discharge/Continuing Care - Education Needs Education Needs: Patient Medication, Patient Diagnosis/Disease Process, Patient Coping Skills, Patient Community resources, Patient Aftercare Safety Plan - Discharge Discharge Criteria: Tolerates medication w/o severe side effects, Free of Suicidal thoughts, Free of agitation, Normal sleep pattern, Ability to care for self, Reduction of target symptoms Discharge to:: Home <Lissette Nicholas - Last Filed: 09/19/18 15:03> Discharge/Continuing Care - Treatment Team Participation Patient/Family/SO Statement: 09/19/18 15:03 Pt. attended tx team this morning to discuss progress on 3NP and tx goals. Pt. continued to report sxs of depression but to a lesser degree than upon admission. Pt. reported sleep disturbances, poor focus, feelings of sadness, and irritability. Pt. denied SI/HI and was able to contract for safety on 3NP. Pt reports being discharged from [place] in 06/2018 and being referred to [facility] for OPS. Pt. reported feeling little to no improvement with medication regimen that pt was placed on. Pt. identified wanting to be started on medications and be referred to [facility] for OPS. Pt. adamant about not wanting to be referred to [facility] or a the [facility] despite tx team recommendations. Pt. expressed feeling as though he cannot relate to peers in [facility] and that [facility] was unsuccessful in the past. Pt. reiterated not wanting [facility] case specialist contacted/communicated with. Pt. inquired about injectable medications. Psychoeducation regarding benefits of a mood stabilizer and injectable medication provided. Pt. agreeable to a mood stabilizer but ultimately declined injectable. Pt. 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 Importance of proper stabilization and discharge planning discussed at length. Pt. superficially receptive to feedback. Discussed with Family/SO: No Was Patient/Family/SO present at Treatment Team Meeting: Yes <Nichol Arzola - Last Filed: 09/20/18 13:06> - Diagnosis (1) Schizoaffective disorder Status: Acute Interventions: 09/20/18 13:04 start seroquel and trileptal (2) Depression Status: Acute Interventions: psychotherapy 09/20/18 13:06
--- NOTE | 2018-09-17 14:24 | PCM.PSYCH ---
Initial Psychiatric Evaluation - Initial Psychiatric Evaluation Type of Admission: Voluntary Chief Complaint (in patient's own words): was feeling down worried was feeling as though was getting more depressed was contemplating "not wanting to remain this world" Patient's Reaction to Hospitalization: signed voluntarily History of Present Illness and Precipitating Events: per chart This 28 y.o., male, presented to ER, as per Investment Underwriter report, with c/o feeling depressed, with suicidal thoughts and OD on 4000 mg of Depakote and 11 tabs of Trazodone 100 mg yesterday. Pt was cleared by ER and per report Poison Control was notified. Pt stated "the voices told me to kill myself for the past 3 days". Pt reports having auditory hallucinations for the past 5 months and worsened in the past 3 days. Pt currently denies active SI/HI and verbally contracts for safety while on the unit. Expressed wanting to jump in front of the train or bus stating his triggers as "I'm just tired of asking people for help but they don't". Reported non compliance with f/u and medication since discharged on October 2017 d/t insurance problems. Pt has multiple inpatient psych adm. @ [facility], [facility] (last adm 11/08) and [facility] ( last adm. 08/01/17). Pt has medical hx of Asthma, Migraine, Arthritis and Body spasms. Surgical Hx of having a Metal Plate on his head from an accident but refuse to answer what type of accident it was. Pt reports having a pain mgt MD but stated "I don't want to tell you who it is" and reports taking Fioricet, Percocet & Flexeril for pain but refuse to disclose where he gets his Rx. Pt's UDS was negative. 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 On intake, pt. was irritable, uncooperative, hostile, refused to answer questions, stated "I am tired". Info. Current Medications: Active Medications Generic Name Dose Route Start Last Admin Trade Name Freq PRN Reason Stop Dose Admin Acetaminophen 650 mg 09/17/18 04:52 Tylenol 325mg Tab PO Q4 PRN pain 4-7 Al Hydrox/Mg Hydrox/Simethicone 30 ml 09/17/18 04:52 Maalox Plus 30 Ml PO Q4 PRN Dyspepsia Diphenhydramine HCl 50 mg 09/17/18 04:52 Benadryl IM Q6 PRN Extrapyramidal S/S Unable PO Diphenhydramine HCl 50 mg 09/17/18 04:52 Benadryl PO Q6 PRN Extrapyramidal Symptoms Diphenhydramine HCl 50 mg 09/17/18 04:52 Benadryl PO HS PRN Sleep Haloperidol 5 mg 09/17/18 04:52 Haldol PO Q4 PRN Agitation Haloperidol Lactate 5 mg 09/17/18 04:52 Haldol IM Q4 PRN Agitation, Unable to Take PO Lorazepam 2 mg 09/17/18 04:52 Ativan IM Q6 PRN Anxiety/Agitation,Unable PO Lorazepam 1 mg 09/17/18 04:52 Ativan PO Q8 PRN Anxiety/Agitation Magnesium Hydroxide 30 ml 09/17/18 04:52 Milk Of Magnesia PO HS PRN Constipation Past Psychiatric History - Past Psychiatric History Prior Professional Help: inpt opd hx of not following up after discharge At [facility]: inpt/opd/pmd [facility] Nature of Treatment: inpt voluntary, opd, pmd-hx of not following up, [id number] $ Pertinent Medical Hx (Current Medical&Sleep Prob, Allergies): Allergies Allergy/AdvReac Type Severity Reaction Status Date / Time amoxicillin Allergy Severe ANAPHYLAXIS Verified 09/16/18 18:29 bee pollen Allergy Severe ANAPHYLAXIS Verified 09/16/18 18:29 Penicillins Allergy ANAPHYLAXIS Verified 09/16/18 18:29 Review of Systems - Psychiatric Psychiatric: Anxiety, Irritability, Mood Swings Additional comments: commentary voices unknown voices Mental Status Examination - Personal Presentation Personal Presentation: Looks older than stated age - Affect Affect: Constricted - Motor Activity Motor Activity: Psychomotor Retardation - Reliability in Providing Information Reliability in Providing Information: Fair - Speech Speech: Organized - Mood Mood: Anxious - Formal Thought Process Formal Thought Process: Hallucinations (commentary ), Paranoia Additional comments: commentary - Cognitive Functions Orientation: Person, Place, Situation, Time Attention/Concentration: Easily distracted (non adherent) - Risk Risk: Suicidal, Diminished functioning - Strength & Assets Inventory Strength & Assets Inventory: Cooperative (past non adherence) DSM 5 DX - DSM 5 DSM 5 Diagnosis: hx schizoaffective disorder - Recommended/Plan of Treatment Treatment Recommendations and Plan of Treatment: admission per attending vital signs and clinical observation per protocol and per clinical status prns per unit protocol hospitalist consult review with in past admits to sernancy helping with mood thoughts sleep has not take in many months will start 50mg po hs discharge planning in progress Projected ELOS: 7-10 days Prognosis: guarded Discharge Plan and Discharge Criteria: safety - Smoking Cessation Smoking Cessation Initiated: No Reason for not providing: pt defers
--- NOTE | 2018-09-17 14:24 | RAD ---
Date of service: 09/16/2018 HISTORY: Possible admission COMPARISON: Comparison chest 12/06/2017. TECHNIQUE: 1 view obtained. FINDINGS: LUNGS: Poor inspiration with low lung volumes common crowded bronchovascular markings and mild bibasilar atelectasis. PLEURA: No significant pleural effusion identified, no pneumothorax apparent. CARDIOVASCULAR: No aortic atherosclerotic calcification present. Heart size upper limits of normal. No pulmonary vascular congestion. OSSEOUS STRUCTURES: No significant abnormalities. VISUALIZED UPPER ABDOMEN: Normal. OTHER FINDINGS: None. IMPRESSION: Poor inspiration with low lung volumes common crowded bronchovascular markings and mild bibasilar atelectasis.
--- NOTE | 2018-09-17 17:30 | CARD ---
APPROVED REPORT Date of service: 09/17/2018 EKG Measurement Heart [id number] <Conclusion> Normal sinus rhythm Normal ECG
--- NOTE | 2018-09-17 17:33 | CARD ---
APPROVED REPORT Date of service: 09/16/2018 EKG Measurement Heart [id number] <Conclusion> Normal sinus rhythm Normal ECG
--- NOTE | 2018-09-18 11:12 | CP.PCM.CON ---
History of Present Illness - History of Present Illness History of Present Illness: 28 yo male with no significant PMH admitted to psyche unit because of depression Review of Systems - Review of Systems All systems: reviewed and no additional remarkable complaints except (aside from those mentioned above, 12 point system review were negative by me) Past Patient History - Infectious Disease Hx of Infectious Diseases: None - Tetanus Immunizations Tetanus Immunization: Unknown - Past Medical History & Family History Past Medical History?: Yes - Past Social History Smoking Status: Heavy Smoker > 10 Cigarettes Daily Chewing Tobacco Use: No Cigar Use: No Alcohol: None Drugs: Denies - CARDIAC Hx Hypertension: No - PULMONARY Hx Asthma: Yes - NEUROLOGICAL Hx Migraine: Yes Hx Seizures: No - HEENT Hx HEENT Problems: No - RENAL Hx Chronic Kidney Disease: No - ENDOCRINE/METABOLIC Hx Endocrine Disorders: No - HEMATOLOGICAL/ONCOLOGICAL Hx Human Immunodeficiency Virus (HIV): No - INTEGUMENTARY Hx Dermatological Problems: No - MUSCULOSKELETAL/RHEUMATOLOGICAL Hx Arthritis: Yes - GASTROINTESTINAL Hx Gastrointestinal Disorders: No - GENITOURINARY/GYNECOLOGICAL Hx Sexually Transmitted Disorders: No - PSYCHIATRIC Hx Anxiety: Yes Hx Bipolar Disorder: Yes Hx Depression: Yes Hx Post Traumatic Stress Disorder: Yes Hx Schizophrenia: Yes - SURGICAL HISTORY Hx Surgeries: Yes Other/Comment: metal plate in his skull. head trauma 2 years ago - ANESTHESIA Hx Anesthesia: Yes Hx Anesthesia Reactions: No Hx Malignant Hyperthermia: No Has any member of the family had a problem w/ anesthesia?: No Meds Allergies/Adverse Reactions: Allergies Allergy/AdvReac Type Severity Reaction Status Date / Time amoxicillin Allergy Severe ANAPHYLAXIS Verified 09/16/18 18:29 bee pollen Allergy Severe ANAPHYLAXIS Verified 09/16/18 18:29 Penicillins Allergy ANAPHYLAXIS Verified 09/16/18 18:29 - Medications Medications: Current Medications Acetaminophen (Tylenol 325mg Tab) 650 mg PO Q4 PRN PRN Reason: pain 4-7 Al Hydrox/Mg Hydrox/Simethicone (Maalox Plus 30 Ml) 30 ml PO Q4 PRN PRN Reason: Dyspepsia Diphenhydramine HCl (Benadryl) 50 mg IM Q6 PRN PRN Reason: Extrapyramidal S/S Unable PO Diphenhydramine HCl (Benadryl) 50 mg PO Q6 PRN PRN Reason: Extrapyramidal Symptoms Diphenhydramine HCl (Benadryl) 50 mg PO HS PRN PRN Reason: Sleep Last Admin: 09/17/18 21:02 Dose: 50 mg Haloperidol (Haldol) 5 mg PO Q4 PRN PRN Reason: Agitation Haloperidol Lactate (Haldol) 5 mg IM Q4 PRN PRN Reason: Agitation, Unable to Take PO Lorazepam (Ativan) 2 mg IM Q6 PRN PRN Reason: Anxiety/Agitation,Unable PO Lorazepam (Ativan) 1 mg PO Q8 PRN PRN Reason: Anxiety/Agitation Magnesium Hydroxide (Milk Of Magnesia) 30 ml PO HS PRN PRN Reason: Constipation Quetiapine Fumarate (Seroquel) 50 mg PO HS CARL Last Admin: 09/17/18 21:00 Dose: 50 mg Physical Exam - Constitutional Appears: No Acute Distress - Head Exam Head Exam: ATRAUMATIC - Eye Exam Eye Exam: absent: Scleral icterus - ENT Exam ENT Exam: Mucous Membranes Moist - Neck Exam Neck exam: Negative for: Meningismus - Respiratory Exam Respiratory Exam: absent: Rales, Rhonchi, Wheezes, Respiratory Distress - Cardiovascular Exam Cardiovascular Exam: REGULAR RHYTHM, +S1, +S2 - GI/Abdominal Exam GI & Abdominal Exam: Soft. absent: Tenderness - Rectal Exam Rectal Exam: Deferred - Extremities Exam Extremities exam: Negative for: pedal edema - Back Exam Back exam: NORMAL INSPECTION - Neurological Exam Neurological exam: Alert, Oriented x3 - Psychiatric Exam Psychiatric exam: Normal Affect - Skin Skin Exam: Dry, Intact Results - Vital Signs Recent Vital Signs: Last Vital Signs Temp 97.4 F L 09/17/18 17:00 Pulse 84 09/17/18 17:00 Resp 18 09/17/18 17:00 BP 132/88 09/17/18 17:00 Pulse Ox 99 09/17/18 19:20 - Labs Result Diagrams: 09/16/18 20:14 09/17/18 00:50 Assessment & Plan (1) Depression Status: Acute Comment: psyche is managing (2) Migraine Status: Acute Comment: Ibuprofen 800mg PO q 8hrs prn
--- NOTE | 2018-09-18 14:31 | PCM.PYCHPN ---
Psychiatric Progress Note - Psychiatric Progress Note Patient seen today, length of contact: chart reviewed case discussed with team, pt seen Patient Chief Complaint: reports somewhat improved sleep last night thoughts were still rapid somewhat less, denies side effects of seroquel 50mg po hs last night, pt seen about unit, staff report pt somewhat less irritable, pt requests if seroquel could be increased to 100mg po hs. pt defers desire to valproic acid (previously taken) (was also part of the medications that was part of the medications pt reportedly ingested in self amitted suicide attempt prior to admission (leading to admission). pt reports did not like the way latuda made him feel "felt zoned out", did not like zyprexa because it "made me gait too much weight, did not like abilify "made me hyper". denies haven taken lithium (I dont want to it can affect your kidneys). Problems Identified/Issues Discussed: alteration in mood alteration in cognition alteration in copy alteration in self care Medical Problems: per charth Diagnostic Results: per psychiatry per medicine per nursing per social work DSM 5 Symptoms Update: minor improvement mood and cognition continues to irritable reportedly somewhat less Medication Change: Yes (increase seroquel to 100mg po hs, start trileptal 150mg po bid ) Medical Record Reviewed: Yes Consults ordered or reviewed: pt being followed by medical team Mental Status Examination - Cognitive Function Orientation: Person, Place, Situation, Time - Mood Mood: Anxious - Affect Affect: Constricted - Formal Thought Process Formal Thought Process: Hallucinations (commentary ), Paranoia - Homicidal Ideation Homicidal Ideation: No Goal/Treatment Plan - Goal/Treatment Plan Progress Toward Problem(s) and Goals/Treatment Plan: inpt milieu vital signs and clinical observation per protocol and per clinical status prns per unit protocol review with in past admits to seroquel helping with mood thoughts sleep has not take in many months will increase seroquel to 100mg po hs for mood, psychosis, sleep, will start trileptal 150mg po bid for mood-pt verbally agreeable to plan defers further questions obtain cbc with diff am (wbc elevated upon admission) discharge planning in progress Estimated Date of D/C: 09/23/18 - Smoking Cessation Smoking Cessation Initiated: No Reason for not providing: pt defers
--- NOTE | 2018-09-19 13:31 | PCM.PYCHPN ---
Psychiatric Progress Note - Psychiatric Progress Note Patient seen today, length of contact: chart reviewed case discussed with team, pt seen Patient Chief Complaint: I am feeling down and I have no support Problems Identified/Issues Discussed: pt evaluated with treatment team presenting with depressed mood irritable affect, related that to the lack social support , pt reported continues to have poor sleep with mood swings, discussed increasing dose of trileptal and seroquel gradually, no reported side effects,encouraged pt to attend groups pt denied any current suicidal or homicidal ideation denied perceptual disturbances, DSM 5 Symptoms Update: schizoaffective disorder bipolar antisocial personality disorder Medication Change: Yes (increase seroquel ) Medical Record Reviewed: Yes Mental Status Examination - Cognitive Function Orientation: Person, Place, Situation, Time Attention: WNL Concentration: WNL Association: WNL Fund of Knowledge: WN Decription of patient's judgement and insights: partial insight fair judgment - Mood Mood: Anxious - Affect Affect: Constricted - Speech Speech: Appropriate - Formal Thought Process Formal Thought Process: Paranoia, Circumstantial - Suicidal Ideation Suicidal Ideation: No - Homicidal Ideation Homicidal Ideation: No Goal/Treatment Plan - Goal/Treatment Plan Need for Continued Stay: Severe depression anxiety, Discharge may exacerbated symptoms Progress Toward Problem(s) and Goals/Treatment Plan: increase trileptal 300mg bid increase seroquel 200mg qhs CBT group and supportive therapy Estimated Date of D/C: 09/23/18
[2018-09-20 08:38] VITALS: RESP 18
--- NOTE | 2018-09-20 13:09 | PCM.PYCHPN ---
Psychiatric Progress Note - Psychiatric Progress Note Patient seen today, length of contact: chart reviewed case discussed with team, pt seen Patient Chief Complaint: I feel better with the medications Problems Identified/Issues Discussed: pt evaluated reported feeling less irritable and less depressed with the start of the medications, no reported side effects , continues to have late insomnia, pt reported having better frustration tolerance , CBT provided pt denied any current suicidal or homicidal ideation denied perceptual disturbances, DSM 5 Symptoms Update: schizoaffective disorder antisocial personality disorder Medication Change: No Medical Record Reviewed: Yes Mental Status Examination - Cognitive Function Orientation: Person, Place, Situation, Time Attention: WNL Concentration: WNL Association: [facility] Fund of Knowledge: [facility] Decription of patient's judgement and insights: partial insight fair judgment - Mood Mood: Anxious - Affect Affect: Constricted - Speech Speech: Appropriate - Formal Thought Process Formal Thought Process: Paranoia, Circumstantial - Suicidal Ideation Suicidal Ideation: No - Homicidal Ideation Homicidal Ideation: No Goal/Treatment Plan - Goal/Treatment Plan Need for Continued Stay: Severe depression anxiety, Discharge may exacerbated symptoms Progress Toward Problem(s) and Goals/Treatment Plan: trileptal 300mg bid seroquel 200mg qhs CBT group and supportive therapy referral to outpatient services Estimated Date of D/C: 09/23/18
--- NOTE | 2018-09-21 13:45 | PCM.PYCHPN ---
Psychiatric Progress Note - Psychiatric Progress Note Patient seen today, length of contact: chart reviewed case discussed with team, pt seen Patient Chief Complaint: I feel stable on my current medications Problems Identified/Issues Discussed: pt evaluated , reported having some conflicts with staff member, yet reporting having better impulse control with current medications, discussed increasing dose of seroquel for mood stabilization, pt declined, no reported side effects pt denied any current suicidal or homicidal ideation denied perceptual disturbances, DSM 5 Symptoms Update: schizoaffective disorder bipolar antisocial personality disorder Medication Change: No Medical Record Reviewed: Yes Mental Status Examination - Cognitive Function Orientation: Person, Place, Situation, Time Attention: WNL Concentration: WNL Association: WNL Fund of Knowledge: WN Decription of patient's judgement and insights: partial insight fair judgment - Mood Mood: Anxious - Affect Affect: Constricted - Speech Speech: Appropriate - Formal Thought Process Formal Thought Process: Paranoia, Circumstantial - Suicidal Ideation Suicidal Ideation: No - Homicidal Ideation Homicidal Ideation: No Goal/Treatment Plan - Goal/Treatment Plan Need for Continued Stay: Severe depression anxiety, Discharge may exacerbated symptoms Progress Toward Problem(s) and Goals/Treatment Plan: trileptal 300mg bid seroquel 200mg qhs CBT group and supportive therapy referral to outpatient services Estimated Date of D/C: 09/23/18
--- NOTE | 2018-09-22 10:30 | PCM.PYCHDC ---
Mental Status Examination - Mental Status Examination Orientation: Person, Place, Situation Memory: Intact Mood: Neutral Affect: Broad Speech: Appropriate Attention: WNL Concentration: WNL Association: WNL Fund of Knowledge: WNL Formal Thought Process: No Impairment Description of patient's judgement and insight: partial insight fair judgment Psychotic Thoughts and Behaviors: pt denied psychotic symptoms, non elicited Suicidal Ideation: No Current Homicidal Ideation?: No Discharge Summary - Discharge Note Reason for Hospitalization: his 28 y.o., male, presented to ER, as per Rubber Chemist report, with c/o feeling depressed, with suicidal thoughts and OD on 4000 mg of Depakote and 11 tabs of Trazodone 100 mg yesterday. Pt was cleared by ER and per report Poison Control was notified. Pt stated "the voices told me to kill myself for the past 3 days". Pt reports having auditory hallucinations for the past 5 months and worsened in the past 3 days. Pt currently denies active SI/HI and verbally contracts for safety while on the unit. Expressed wanting to jump in front of the train or bus stating his triggers as "I'm just tired of asking people for help but they don't". Reported non compliance with f/u and medication since discharged on October 2017 d/t insurance problems. Pt has multiple inpatient psych adm. @ [facility], [facility] (last adm 11/08) and [facility] (last adm. 08/01/17). Pt has medical hx of Asthma, Migraine, Arthritis and Body spasms. Surgical Hx of having a Metal Plate on his head from an accident but refuse to answer what type of accident it was. Pt reports having a pain mgt MD but stated "I don't want to tell you who it is" and reports taking Fioricet, Percocet & Flexeril for pain but refuse to disclose where he gets his Rx. Pt's UDS was negative. 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 On intake, pt. was irritable, uncooperative, hostile, refused to answer questions, Psychiatric History (includes Medical, Family, Personal Hx): inpt voluntary, opd, pmd-hx of not following up, [id number] $ Consultations:: List each consultation separately and include: 1. Reason for request. 2. Findings. 3. Follow-up Summary of Hospital Course include:: 1. Description of specific treatment plan utilized for patients during their course of treatmen. 2. Summarize the time- course for resolution of acute symptoms and/or regressed behaviors. 3. Describe issues identified and worked on during hospitalization. 4. Describe medication utilized. 5. Describe medical problems identified and treated. 6. Reassessment of suicide risk Summary of Hospital Course: pt on admission presented with depressed mood and irritable affect, pt was stated on seroquel and trileptal CBT andgroup therapy provided pt was compliant with medications, no reported side effects on discharge mental status was stable and pt denied any suicidal or homicidal ideation denied perceptual disturbances - Diagnosis (1) Schizoaffective disorder Status: Acute Priority: Medium (2) Depression Status: Acute - Final Diagnosis (DSM 5) Condition upon Discharge: IMPROVED DSM 5: schizoaffective disorder bipolar antisocial personality disorder Disposition: HOME/ ROUTINE Follow-up Treatment Plan: [facility] outpatient services Prescriptions/Medication Reconciliation: OXcarbazepine [Trileptal] 300 mg PO BID 30 Days #60 tab QUEtiapine [SEROquel] 200 mg PO HS 30 Days #30 tab - Antipsychotic Medications Pt discharged on 2 or more routine antipsychotic medications: No
[2018-09-22 12:38] VITALS: BP 127/89; PULSE 98; TEMP 98.9
== END 2018-09-22 09:49 | disposition home or self-care (01) | DRG 885 ==
LOC: H.ER 18:12 → H.ERHOLD 09-17 02:28 → H.PSYCH 09-17 04:49
PROVIDERS: ADMIT Psychiatry & Neurology Psychiatry; ATTEND Psychiatry & Neurology Psychiatry
PROC: GZHZZZZ Group Psychotherapy (ICD-10-PCS; principal; 2018-09-17)
PROC: GZ58ZZZ Individual Psychotherapy, Cognitive-Behavioral (ICD-10-PCS; 2018-09-17)
DX: F25.0 Schizoaffective disorder, bipolar type (principal); F60.2 Antisocial personality disorder; F43.10 Post-traumatic stress disorder, unspecified; Z91.5 Personal history of self-harm; Z91.19 Patient's noncompliance with other medical treatment and regimen; G43.909 Migraine, unspecified, not intractable, without status migrainosus; J45.909 Unspecified asthma, uncomplicated; F41.9 Anxiety disorder, unspecified; F17.210 Nicotine dependence, cigarettes, uncomplicated; Z87.828 Personal history of other (healed) physical injury and trauma; Z88.0 Allergy status to penicillin